=== PATIENT | female | born 2000 | race Caucasian/White ===

== ENCOUNTER 2022-05-06 15:17 | Emergency (ER) | payer OTHER, BC, SELFPAY ==
--- NOTE | 2022-05-06 15:18 | ED.URI ---
HPI - URI/Sore Throat General Chief Complaint: Upper Respiratory Infection Stated Complaint: Cough,Congestion,Sore Throat,Bilateral Ear Time Seen by Provider: 05/06/22 15:18 Source: patient Mode of arrival: ambulatory Limitations: no limitations History of Present Illness HPI Narrative: Marj is a 22-year-old female patient presenting to clinic today with complaints of nonproductive cough, nasal congestion, sore throat, and bilateral ear pain x1 week. She just finished amoxicillin for strep throat 2 weeks ago. She states she had COVID back in March. She denies any known fever or chills. History of asthma when she was a child. MD elicited complaint: cough, sore throat, rhinorrhea and nasal congestion Related Data Home Medications Medication Instructions Recorded Confirmed folic acid 1 mg tablet 1 mg PO DAILY 05/06/22 05/06/22 levothyroxine 25 mcg tablet 25 mcg PO DAILY 05/06/22 05/06/22 pantoprazole 40 mg tablet,delayed 40 mg PO DAILY 05/06/22 05/06/22 release Allergies Allergy/AdvReac Type Severity Reaction Status Date / Time No Known Allergies Allergy Verified 05/06/22 15:19 Review of Systems Review of Systems: Pertinent positives per HPI. Patient denies any fever, chills, rash, headache, visual changes, dizziness, shortness of breath, chest pain, palpitations, nausea, vomiting, diarrhea, constipation, abdominal pain, or any urinary issues. [facility] Comments At the time of my signature, I reviewed and agree with the nursing past medical, surgical, social, and family history. There is no relevant family history pertinent to the patient complaint. Exam Narrative: General: Well-developed, obese, in no apparent distress Head: Normocephalic, atraumatic Eyes: Pupils equally round and reactive to light bilaterally, EOM intact, sclera and conjunctive clear, no discharge, lids normal Ears: TMs intact, congested, mild bulging, ear canals clear, no drainage, grossly hearing normal. Nose: Nares patent, clear nasal discharge, no inflammation, no sinus tenderness. Mouth: Oropharynx without lesions or masses, good dentition, MMM. Postnasal drip Neck: Supple, trachea midline, no enlargement of anterior or posterior cervical nodes, no thyroid masses or goiter palpable. Cardio: Regular rate and rhythm, s1 and s2 normal, no murmur appreciated. Resp: Clear to auscultation bilaterally anteriorly and posteriorly, no rhonchi, rales, wheezing or rubs Course Course Emergency Course: Portions of this record may have been created with voice recognition software. Level of Care: Express Care Visit Vital Signs Vital signs: Vital Signs Temperature 36.2 C L 05/06/22 15:30 Pulse Rate 89 05/06/22 15:30 Respiratory Rate 18 05/06/22 15:30 Blood Pressure 120/80 05/06/22 15:30 Pulse Oximetry 100 05/06/22 15:30 Oxygen Delivery Room Air 05/06/22 15:30 Temperature 36.2 C L 05/06/22 15:30 Pulse Rate 89 05/06/22 15:30 Respiratory Rate 18 05/06/22 15:30 Blood Pressure 120/80 05/06/22 15:30 Pulse Oximetry 100 05/06/22 15:30 Oxygen Delivery Room Air 05/06/22 15:30 Vital signs reviewed MDM - URI/Sore Throat MDM Narrative Medical decision making narrative: At the time of visit patient is resting comfortably on the exam table. I suspect the patient has URI/pharyngitis/eustachian tube dysfunction/viral syndrome. Prescription for prednisone was sent to the pharmacy to help with the congestion eustachian tube dysfunction. Supportive measures were discussed with the patient she voiced understanding discharge instructions and agrees to treatment plan. Offered albuterol inhaler but patient says she has 3 inhalers at home. Differential Diagnosis Differential diagnosis: Likely upper respiratory infection, otitis media, sinusitis, viral infection, bronchitis, influenza, pharyngitis and other (COVID) Discharge Plan Discharge Clinical Impression: Acute dysfunction of both eustachian tubes Upper
[2022-05-06 15:30] VITALS: BP 120/80; PULSE 89; RESP 18; TEMP 36.2; O2SAT 100
== END 2022-05-06 15:43 | disposition home or self-care (01) ==
LOC: EXPTROY 15:24
PROVIDERS: Emergency Provider Nurse Practitioner Family; PCP Registered Nurse
DX: H69.93 Unspecified Eustachian tube disorder, bilateral (principal); J06.9 Acute upper respiratory infection, unspecified; J02.9 Acute pharyngitis, unspecified; Z86.16 Personal history of COVID-19
CPT/HCPCS: 99213; G0463

== ENCOUNTER 2023-12-26 16:48 | Inpatient (IN) | payer BC, SELFPAY ==
--- NOTE | ~2023-12-26 | CT_ITS ---
EXAMINATION: CT abdomen pelvis w con DATE: 12/28/2023 13:44 INDICATION: Left upper quadrant abdominal pain. TECHNIQUE: Computed tomography (CT) of the abdomen and pelvis was performed with 100 mL Omnipaque 350 intravenous contrast. Automated exposure control and iterative reconstruction technique were employe d. The dose-length product was 1617.54 mGy-cm. COMPARISON: CT abdomen and pelvis 12/26/2023 FINDINGS: The visualized portions of the lung bases demonstrate patchy airspace opacities bilaterally . There are confluent airspace opacities and groundglass opacities in right lower lobe with air bronc hograms. There is a trace right pleural effusion. The heart size is normal. No pericardial effusion. The liver demonstrates 2 hyperdense masses measuring up to 14 mm, most likely hemangiomas or focal no dular hyperplasia. There is a 17 mm hypodense mass in right hepatic lobe. The gallbladder, spleen, pa ncreas, adrenal glands, and kidneys are normal. There are no dilated loops of bowel. The appendix is normal. There are no pathologically enlarged lymph nodes. There is no free intraperitoneal fluid. The re is an umbilical hernia containing fat. There is mild thoracic and lumbar spondylosis. IMPRESSION: 1. Multifocal pneumonia, worst in right hepatic lobe. 2. 17 mm liver mass, which may be benign or less likely malignant. Consider abdomen MRI without and w ith contrast. Reviewed, dictated and finalized at location A. IMPRESSION: 1. Multifocal pneumonia, worst in right hepatic lobe. 2. 17 mm liver mass, which may be benign or less likely malignant. Consider abd omen MRI without and with contrast.
--- NOTE | ~2023-12-26 | XR_ITS ---
XR chest 2V Ordering provider: Bernie Arevalo PA-C History: 23 years Female with . fevers, cough . Comparison: None. FINDINGS: MEDIASTINUM: The cardiac silhouette is slightly enlarged. Congestive rodri. LUNGS: No effusions or pneumothorax. Atelectasis versus pneumonia in the right lung base. Prominent m arkings in the left lower lobe. OTHER: No free air under the diaphragm. IMPRESSION: Right basilar atelectasis versus pneumonia. Reviewed, dictated and finalized at location A.
--- NOTE | ~2023-12-26 | CT_ITS ---
CT abdomen pelvis w con Ordering provider: Bernie Arevalo PA-C History: 23 years Female with . n/v/lower abd pain, fevers . Comparison: None. Technique: CT abdomen and pelvis with IV and without oral contrast. Automated exposure control and it erative reconstruction technique were employed. The dose-length product was 1617.74 mGy-cm. 100 mL Om nipaque 350 was given IV. Findings: VISUALIZED LOWER CHEST: Right lower lobe pneumonia is noted. UPPER ABDOMINAL ORGANS: Liver: Normal. 1.2 cm hypodensity seen in the right lobe of the liver segment #7 Gallbladder: Normal. Spleen: Normal. Stomach/duodenum: Normal. Pancreas: Normal. Adrenals: Normal. Kidneys: Normal. PELVIC ORGANS: The bladder is underfilled. BOWEL AND MESENTERY: Colon: No evidence of diverticulitis. Fluid is seen in the colon and distal small bowel which may ind icate diarrhea or enteritis. Normal appendix. Small Bowel: Normal. No obstruction. Peritoneum/mesentery: No free air or free fluid. No mesenteric lymphadenopathy. RETROPERITONEUM: Normal aorta. No retroperitoneal lymphadenopathy. MUSCULOSKELETAL: Superficial soft tissues: The superficial soft tissues are normal. Bones: Normal spine. IMPRESSION: 1. Right basal pneumonia. 2. No evidence of appendicitis, diverticulitis or intestinal obstruction. 3. Fluid in the distal small bowel and in the large bowel which may indicate diarrhea or enteritis. Clinical correlation advised. 4. Small hypodensity in the right lobe of the liver which may be a cyst or a hemangioma. Follow-up a dvised. Reviewed, dictated and finalized at location A. IMPRESSION: 1. Right basal pneumonia. 2. No evidence of appendicitis, diverticulitis or intestinal obstruction. 3. Fluid in the distal small bowel and in the large bowel which may indicate d iarrhea or enteritis. Clinical correlation advised. 4. Small hypodensity in the right lobe of the liver which may be a cyst or a h emangioma. Follow-up advised.
[2023-12-26 16:50] VITALS: BP 118/76; PULSE 129; RESP 20; TEMP 38.6; O2SAT 97
--- NOTE | 2023-12-26 16:58 | ECG_ITS ---
Test Date: 2023-12-26 17:04:56 Measurements Intervals [place] Rate: 121 P: 53 NV: 132 QRS: 58 QRSD: 82 T: -11 QT: 287 QTc: 408 Interpretive Statements SINUS TACHYCARDIA MINIMAL Q WAVES- INF/LAT LEADS NONSPECIFIC ST & T-WAVE ABNORMALITY- ANT/INF LEADS ABNORMAL ECG No previous ECG available for comparison Electronically Signed On 12-26-2023 17:52:54 CDT by Juanpablo Da Silva D.O.
[2023-12-26 17:54] LABS: Basophils Percent Auto 0.5 % (0.2-1.2); Eosinophils Percent Auto 0.5 % (0-4.4); Hematocrit 42.1 % (37.0-47.0); Hemoglobin 13.6 g/dL (12.0-15.0); Immature Granulocyte Absolute 0.06 K/mm3 (0.00-0.031); Immature Granulocyte Percent A 0.7 % (0-0.5); Lymphocytes Absolute Auto 0.95 K/mm3 (0.9-3.2); Lymphocytes Percent Auto 10.9 % (18.3-44.2); Mean Corpuscular HGB Conc 32.3 g/dl (32-36); Mean Corpuscular Hemoglobin 26.7 pg (26-34); Mean Corpuscular Volume 82.7 fl (80-100); Mean Platelet Volume 11.2 fl (7.4-10.4); Monocytes Absolute Auto 0.5 K/mm3 (0.1-0.6); Monocytes Percent Auto 5.3 % (2.6-8.5); Neutrophils Absolute Auto 7.2 K/mm3 (1.3-6.7); Neutrophils Percent Auto 82.1 % (45.5-73.1); Platelet Count Result 286 k/mm3 (150-375); Red Blood Count 5.09 M/mm3 (4.2-5.4); Red Cell Distribution Width 13.4 % (11.5-14.5); White Blood Count 8.7 K/mm3 (4.5-10.0)
[2023-12-26 17:56] LABS: Influenza A QL RT-PCR Negative (Negative); Influenza B QL RT-PCR Negative (Negative); RSV RNA, RT-PCR Negative (Negative); SARS-CoV-2 RNA PCR Negative (Negative)
[2023-12-26 18:00] LABS: Alanine Aminotransferase 13 U/L (6-35); Albumin Level 4.3 g/dL (3.5-5.1); Alkaline Phosphatase 79 U/L (38-126); Anion Gap 14 mmol/L (4-12); Aspartate Amino Transferase 23 U/L (14-36); Bilirubin,Total 0.7 mg/dL (0.2-1.3); Blood Urea Nitrogen 10 mg/dL (7-17); Calcium 8.6 mg/dL (8.4-10.2); Carbon Dioxide 23 mmol/L (22-30); Chloride 100 mmol/L (98-107); Estimated Glomerular Filt Rate > 60; Glucose 104 mg/dL (65-110); Magnesium 2.1 mg/dL (1.6-2.3); Potassium 3.6 mmol/L (3.4-5.0); Sodium 137 mmol/L (137-145)
--- NOTE | 2023-12-26 18:04 | ED.FEVER ---
HPI - Fever General Chief Complaint: Fever <HEVER Rashid Last Filed: 12/26/23 21:46> Stated Complaint: fever <HEVER Rashid Last Filed: 12/26/23 21:46> Time Seen by Provider: 12/26/23 16:59 <HEVER Rashid Last Filed: 12/26/23 21:46> Source: patient <HEVER Rashid Last Filed: 12/26/23 21:46> Mode of arrival: ambulatory <HEVER Rashid Last Filed: 12/26/23 21:46> Limitations: no limitations <HEVER Rashid Last Filed: 12/26/23 21:46> History of Present Illness HPI Narrative: Patient is a 23-year-old female who presents the ED with URI symptoms. Patient reports she has been sick since Sunday with persistent fevers, T-max 104? F, body aches, generalized weakness, fatigue, nausea, vomiting, lower abdominal cramping, cough, congestion. Has been taking Tylenol and ibuprofen for her fevers. Denies known sick contacts. Denies shortness of breath, chest pain. Reports her daughter is now sick with similar symptoms. 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 <HEVER Rashdi Last Filed: 12/26/23 21:46> Related Data Home Medications: Home Medications Medication Instructions Recorded Confirmed levothyroxine 25 mcg tablet 25 mcg PO DAILY 05/06/22 12/26/23 pantoprazole 40 mg tablet,delayed 40 mg PO DAILY 05/06/22 12/26/23 release clonazepam 0.5 mg tablet 0.5 mg PO QHS 12/26/23 12/26/23 ferrous sulfate 325 mg PO DAILY 12/26/23 12/26/23 sertraline 50 mg tablet 50 mg PO QAM 12/26/23 12/26/23 <HEVER Rashid Last Filed: 12/26/23 21:46> Allergies/Adverse Reactions: Allergies Allergy/AdvReac Type Severity Reaction Status Date / Time No Known Allergies Allergy Verified 05/06/22 15:19 <Bernie Arevalo PA-C - Last Filed: 12/26/23 21:46> Review of Systems Review of Systems: All systems reviewed & are unremarkable except as noted in HPI. <Bernie Arevalo PA-C - Last Filed: 12/26/23 21:46> All systems reviewed & are unremarkable except as noted in HPI and below <Bernie Arevalo PA-C - Last Filed: 12/26/23 21:46> [facility] Social History Social History: Social History Smoking status: Never smoker Alcohol intake: never Substance use: never Do You Feel Safe in your Home?: Yes Lack of Transportation: No Lack of Food: Never True Current Housing: I Have Housing Concerned About Future Housing: No Difficulty Paying Gas/Electric Bills: No Difficulty Paying for Meds: No Currently Unemployed: No Education: High School Diploma/GED Difficulty w/ Childcare or Family Care: No Spiritual care concerns: No <Bernie Arevalo PA-C - Last Filed: 12/26/23 21:46> Exam Narrative: GENERAL: Mildly ill appearing, well-nourished, in no acute distress. HEAD: Normocephalic, atraumatic. RESPIRATORY: Airway patent, respirations nonlabored. Clear to auscultation bilaterally, no rales, rhonchi, wheezing. CARDIOVASCULAR: Tachycardic with regular rhythm without murmurs, rubs, or gallops. ABDOMINAL: Soft, mild diffuse tenderness throughout lower abdomen, nondistended. Normoactive BS. MUSCULOSKELETAL: Moves all extremities. No gross deformities. SKIN: Warm, dry. Flushed and diaphoretic. NEURO: A&O X3. Speech clear. Cranial nerves II-XII grossly intact. Steady gait. No ataxic movements. PSYCHIATRIC: Appropriate mood and affect. Normal interaction. <Bernie Arevalo PA-C - Last Filed: 12/26/23 21:46> Course PERSONNEL COORDINATOR/PA Physician Supervision For this patient encounter, I reviewed the PERSONNEL COORDINATOR or PA documentation, treatment plan, and medical decision making; and I had [id number]-[id number] time with this patient. <Blaze Samuels MD - Last Filed: 12/27/23 00:21> Vital Signs Vital signs: Vital Signs Temperature 101.4 F H 12/26/23 16:50 Pulse Rate 129 H 12/26/23 16:50 Respiratory Rate 20
[2023-12-26] MEDS: FAMOTIDINE 20 MG/2 ML VIAL IV PUSH (18:22)
[2023-12-26] MEDS: KETOROLAC 30 MG/ML VIAL (*BKC) IV PUSH (18:22)
[2023-12-26] MEDS: SODIUM CHLORIDE 0.9% IV 1,000 ML 999 ML IV CONT ×2 (18:22)
[2023-12-26 18:31] LABS: Monoscreen Negative (Negative); Negative Monotest Control Negative (Negative); Positive Monotest Control Positive (Positive)
[2023-12-26 18:40] LABS: Strep Group A RT-PCR NOT DETECTED (Negative)
[2023-12-26 19:03] LABS: Add Urine Microscopic? YES; Appearance Urine Clear (Clear); Bacteria Urine Rare /hpf; Bilirubin Urine Negative (Negative); Blood Urine Negative (Negative); Color Urine Dark Yellow (Yellow); Glucose Urine UA Negative (Negative); Ketones Urine 1+ mg/dL (Negative); Leukocyte Esterase Ur Negative LEU/UL (Negative); Nitrate Urine Negative (Negative); Non Pathogenic Casts 0-2; Protein Urine 2+ mg/dL (Negative); RBC Urine 0-2 /hpf (0-2); Specific Grav Ur 1.025 (1.001-1.035); Squamous Epithelial Cell Urine Occasional /hpf (Few); WBC Urine 0-5 /hpf (0-3); pH Urine 5.5 (5.0-9.0)
[2023-12-26 19:44] VITALS: BP 134/80; PULSE 117; RESP 16; TEMP 36.6; O2SAT 97
[2023-12-26 20:06] VITALS: BP 115/57; PULSE 109; RESP 16; O2SAT 97
[2023-12-26 21:47] VITALS: BP 136/67; PULSE 105; RESP 16; O2SAT 97
--- NOTE | 2023-12-26 22:10 | PC.NURSE ---
Report attempt x1 to [facility] medical.
--- NOTE | 2023-12-26 22:39 | ADMGEN ---
This patient, Mell Bhakta, was admitted to Medical Room 250-01. Patient/family oriented to hospital policies and general routines including ID bracelet, bed and alarms, visiting hours, pain management, procedures, bathroom and other care routines, personal items, smoking policy, room service/diet, and visiting hours. Information on how to activate the Rapid Response Team has been discussed. Patient/Family are encouraged to report perceived risks to care and to ask questions if they do not understand what they are told or what they should do.
[2023-12-26 22:41] VITALS: BMI 42.5
[2023-12-26 22:47] VITALS: BP 129/76; PULSE 100; RESP 20; TEMP 36.7; O2SAT 99
[2023-12-26 22:57] VITALS: BMI 42.5
[2023-12-26] MEDS: SODIUM CHLORIDE 0.9% IV 1,000 ML 125 ML IV CONT (23:13)
[2023-12-26] MEDS: AZITHROMYCIN 500 MG/NS 250 ML 500 MG/250 ML BAG 250 MG IVPB (23:14)
[2023-12-26] MEDS: ACETAMINOPHEN 500 MG TABLET 1000 MG PO (23:20)
--- NOTE | 2023-12-26 23:27 | PM.IMHP ---
H&P: HPI History of Present Illness Date/Time: 12/26/23 23:27 Chief Complaint: Cough, fever, nausea vomiting diarrhea Narrative: Ms. Bhakta this is a pleasant 23-year-old female with a history of obesity, anxiety, hypothyroidism who presents with 3 day complaint of fevers T-max 104? F, body aches, generalized weakness, fatigue, nausea vomiting, lower abdominal cramping, diarrhea 5 times per day with loose yellow stool, cough with clear sputum production,. The patient denies chest pain. Denies shortness of breath. Reports her daughter has similar symptoms. She has been taking Tylenol ibuprofen with little improvement. Upon presentation to ER patient has stable blood pressure, no fever but tachycardia in the 100s. EKG showing sinus tachycardia. She was given ceftriaxone 1 g, azithromycin 500 mg, metronidazole 500 mg, 2 L normal saline bolus, famotidine, Ketoralac, Tylenol 1000 mg p.o. x1. chest x-ray and CT abdomen pelvis demonstrating right basal pneumonia along with enteritis. Blood cultures obtained Review of Systems Review of Systems: All systems reviewed & are unremarkable except as noted in HPI and below ( subjective) [facility] Social History Social History Smoking status: Never smoker Alcohol intake: never Substance use: never Do You Feel Safe in your Home?: Yes Lack of Transportation: No Lack of Food: Never True Current Housing: I Have Housing Concerned About Future Housing: No Difficulty Paying Gas/Electric Bills: No Difficulty Paying for Meds: No Currently Unemployed: No Education: High School Diploma/GED Difficulty w/ Childcare or Family Care: No Spiritual care concerns: No Meds Home Medications and Allergies Home Medications Medication Instructions Recorded Confirmed Type folic acid 1 mg tablet 1 mg PO DAILY 05/06/22 05/06/22 History levothyroxine 25 mcg tablet 25 mcg PO DAILY 05/06/22 05/06/22 History pantoprazole 40 mg tablet,delayed 40 mg PO DAILY 05/06/22 05/06/22 History release prednisone 20 mg tablet 40 mg PO DAILY 5 days #10 tabs 05/06/22 Rx Allergies Allergy/AdvReac Type Severity Reaction Status Date / Time No Known Allergies Allergy Verified 05/06/22 15:19 Vital Signs Vital Signs - 24 hr 12/26/23 16:50 12/26/23 19:44 12/26/23 20:06 Temperature 101.4 F H 98 F Pulse Rate 129 H 117 H 109 H Respiratory Rate 20 16 16 Blood Pressure 118/76 134/80 115/57 L Pulse Oximetry 97 97 97 12/26/23 21:47 12/26/23 22:47 Temperature 98.1 F Pulse Rate 105 H 100 Respiratory Rate 16 20 Blood Pressure 136/67 129/76 Pulse Oximetry 97 99 Exam Const: General: comfortable and no acute distress Eyes: Pupils: Equal, round and reactive pupils present Neck: Neck: supple Resp: Effort & Inspection: normal respiratory effort Other: rales in the right lung base Cardio: Rate: tachycardic Rhythm: regular rhythm Heart sounds: no gallops, no murmurs and no rubs GI: Inspection: non-distended GI Palp: Yes Soft to palpation and No Tenderness to palpation present (GI) Extrem: General: no edema H&P: Results Labs Labs: Short CBC 12/26/23 Range/Units 17:30 WBC 8.7 (4.5-10.0) K/mm3 Hgb 13.6 (12.0-15.0) g/dL Hct 42.1 (37.0-47.0) % Plt Count 286 (150-375) k/mm3 BMP 12/26/23 17:30 Sodium 137 Potassium 3.6 Chloride 100 Carbon Dioxide 23 BUN 10 Creatinine 0.60 L Glucose 104 Calcium 8.6 Liver Function 12/26/23 Range/Units 17:30 Total Bilirubin 0.7 (0.2-1.3) mg/dL AST 23 (14-36) U/L ALT 13 (6-35) U/L Alkaline Phosphatase 79 (38-126) U/L Albumin 4.3 (3.5-5.1) g/dL Urine 12/26/23 Range/Units 18:47 Urine Color Dark yellow (Yellow) Urine Appearance Clear (Clear) Urine pH 5.5 (5.0-9.0) Ur Specific [place] 1.025 (1.001-1.035) Urine Protein 2+ H (Negative) mg/dL Urine Gluc
[2023-12-27] VITALS (18 sets, daily range): BP systolic 103–141; BP diastolic 59–77; PULSE 85–103; RESP 18–20; TEMP 36.4–38.8; O2SAT 97–100
[2023-12-27] MEDS: clonazePAM (*CRX) 0.5 MG TABLET PO ×2 (01:13→22:06)
[2023-12-27] MEDS: metroNIDAZOLE 500 MG/ISO 100ML 500 MG/100 ML BAG 100 MG IVPB ×4 (01:24→20:58)
[2023-12-27 01:33] LABS: Toxigenic C. Diff NEGATIVE (NEGATIVE)
[2023-12-27] MEDS: LEVOTHYROXINE SODIUM 25 MCG TABLET PO (06:15)
[2023-12-27 06:43] LABS: Basophils Percent Auto 0.4 % (0.2-1.2); Eosinophils Percent Auto 0.3 % (0-4.4); Hematocrit 37.9 % (37.0-47.0); Hemoglobin 12.3 g/dL (12.0-15.0); Immature Granulocyte Absolute 0.04 K/mm3 (0.00-0.031); Immature Granulocyte Percent A 0.6 % (0-0.5); Lymphocytes Absolute Auto 1.36 K/mm3 (0.9-3.2); Lymphocytes Percent Auto 20.2 % (18.3-44.2); Mean Corpuscular HGB Conc 32.5 g/dl (32-36); Mean Corpuscular Hemoglobin 27.2 pg (26-34); Mean Corpuscular Volume 83.8 fl (80-100); Mean Platelet Volume 10.8 fl (7.4-10.4); Monocytes Absolute Auto 0.6 K/mm3 (0.1-0.6); Monocytes Percent Auto 8.3 % (2.6-8.5); Neutrophils Absolute Auto 4.7 K/mm3 (1.3-6.7); Neutrophils Percent Auto 70.2 % (45.5-73.1); Platelet Count Result 220 k/mm3 (150-375); Red Blood Count 4.52 M/mm3 (4.2-5.4); Red Cell Distribution Width 13.6 % (11.5-14.5); White Blood Count 6.7 K/mm3 (4.5-10.0)
[2023-12-27] MEDS: ACETAMINOPHEN 500 MG TABLET 1000 MG PO ×2 (06:48→18:07)
[2023-12-27 06:52] LABS: Anion Gap 9 mmol/L (4-12); Blood Urea Nitrogen 8 mg/dL (7-17); Calcium 7.9 mg/dL (8.4-10.2); Carbon Dioxide 21 mmol/L (22-30); Chloride 104 mmol/L (98-107); Estimated CRCL calculation 189 ml/min; Estimated Glomerular Filt Rate > 60; Glucose 96 mg/dL (65-110); Potassium 3.4 mmol/L (3.4-5.0); Sodium 134 mmol/L (137-145)
[2023-12-27] MEDS: FERROUS SULFATE 325 MG TABLET DR BY MOUTH (08:36)
[2023-12-27] MEDS: SERTRALINE HCL 50 MG TABLET PO (08:38)
[2023-12-27] MEDS: IBUPROFEN 600 MG TABLET PO ×2 (08:38→19:34)
[2023-12-27] MEDS: PANTOPRAZOLE SODIUM IV 40 MG VIAL IV PUSH (08:38)
[2023-12-27] MEDS: SODIUM CHLORIDE 0.9% IV 1,000 ML 999 ML IV CONT (08:39)
--- NOTE | 2023-12-27 08:47 | ECG_ITS ---
Test Date: 2023-12-27 08:38:36 Measurements Intervals [place] Rate: 93 P: 55 SC: 146 QRS: 48 QRSD: 90 T: -14 QT: 339 QTc: 423 Interpretive Statements SINUS RHYTHM MINIMAL Q WAVES- INFERIOR LEADS BORDERLINE ST-T WAVE ABNORMALITY- ANT/INF LEADS BASELINE WANDER- II, AVF, V3 ABNORMAL ECG Compared to ECG 12/26/2023 17:04:56 HEART RATE HAS DECREASED Electronically Signed On 12-27-2023 10:42:10 CDT by Juanpablo Da Silva D.O.
[2023-12-27] MEDS: SODIUM CHLORIDE 0.9% IV 1,000 ML 125 ML IV CONT ×2 (11:08→20:19)
--- NOTE | 2023-12-27 13:34 | PM.IMPN ---
Progress Note: A&P Assessment and Plan (1) Pneumonia: Qualifiers: Laterality: right Lung location: lower lobe of lung Pneumonia type: due to unspecified organism Qualified Code(s): J18.9 - Pneumonia, unspecified organism Code(s): J18.9 - Pneumonia, unspecified organism Status: Acute (2) Enteritis: Code(s): K52.9 - Noninfective gastroenteritis and colitis, unspecified Status: Acute (3) Sinus tachycardia: Code(s): R00.0 - Tachycardia, unspecified Status: Acute Plan Pneumonia On room air, still having fever today with T 101.8 Monitor blood cultures CXR adn CT AP reviewed continue abx Enteritis patient still having diarrhea continue IVF monitor DVT prophylaxis on Sq Lovenox Subjective Date/time seen: 12/27/23 13:34 Interval history: Patient comfortable at bedside complained of chest pain with coughing Review of Systems Review of Systems: All systems reviewed & are unremarkable except as noted in HPI and below ( subjective) Exam Narrative: General: alert and comfortable Eyes: EOMI, PERRLA ENNT External ears normal, Neck is supple, no masses, Respiratory systems: Clear to auscultation Cardiovascular S1, S2, normal rhythm, no murmur, rub, or gallop; no thrill or palpable murmurs on palpation. Gastrointestinal: soft, non-tender, and non-distended abdomen with no masses; BS present Skin: no rash, lesions, ulcerations, subcutaneous nodules or induration Musculoskeletal: no abnormality and no tenderness, normal ROM Neurologic: Alert and oriented x3, non focal Mental Status Exam: normal affect Objective Data Vital Signs Vital Signs: Vital Signs - 24 hr 12/26/23 16:50 12/26/23 19:44 12/26/23 20:06 Temperature 101.4 F H 98 F Pulse Rate 129 H 117 H 109 H Respiratory Rate 20 16 16 Blood Pressure 118/76 134/80 115/57 L Pulse Oximetry 97 97 97 Oxygen Delivery 12/26/23 21:47 12/26/23 22:47 12/27/23 00:00 Temperature 98.1 F Pulse Rate 105 H 100 102 H Respiratory Rate 16 20 Blood Pressure 136/67 129/76 Pulse Oximetry 97 99 Oxygen Delivery 12/27/23 00:00 12/27/23 04:00 12/27/23 05:04 Temperature 99.3 F Pulse Rate 96 100 Respiratory Rate 20 Blood Pressure 141/69 H Pulse Oximetry 100 Oxygen Delivery Room Air 12/27/23 06:46 12/27/23 06:48 12/27/23 07:48 Temperature 101.8 F H 101.8 F H 100.1 F H Pulse Rate Respiratory Rate Blood Pressure Pulse Oximetry Oxygen Delivery 12/27/23 08:00 Temperature Pulse Rate Respiratory Rate Blood Pressure Pulse Oximetry Oxygen Delivery Room Air Intake/Output Intake/Output: Intake & Output 12/24/23 12/25/23 12/26/23 12/27/23 23:59 23:59 23:59 23:59 Intake Total 2049 1490 Balance 2049 1490 Meds/Results Medications: Active Medications Generic Name Dose Route Start Last Admin Trade Name Freq PRN Reason Stop Dose Admin Acetaminophen 1,000 mg 12/26/23 21:38 12/27/23 06:48 Acetaminophen 500 Mg Tablet PO 1,000 mg Q6H PRN Administration Mild Pain (1-3) or Fever Clonazepam 0.5 mg 12/27/23 01:00 12/27/23 01:13 Clonazepam (*Crx) 0.5 Mg Tablet PO 0.5 mg QHS TRINA Administration Ferrous Sulfate 325 mg 12/27/23 09:00 12/27/23 08:36 Ferrous Sulfate [address] BY MOUTH 325 mg DAILY TRINA Administration Ceftriaxone Sodium 1 gm in 50 mls @ 100 mls/hr 12/27/23 22:00 Rocephin 1 Gm/Ns 50 Ml IVPB Q24H TRINA Azithromycin 500 mg in 250 mls @ 250 mls/hr 12/27/23 22:00 Zithromax IVPB Q24H TRINA Metronidazole 500 mg in 100 mls @ 100 mls/hr 12/27/23 06:00 12/27/23 06:15 Flagyl 500 Mg/Iso Soln 100 Ml IVPB 100 mls/hr Q8HR TRINA Administration Sodium Chloride 1,000 mls @ 125 mls/hr 12/26/23 21:30 12/27/23 11:08 Normal Saline Iv IV CONT 125 mls/hr .Q8H TRINA Administration Ibuprofen 600 mg 12/26/23 21:38 12/27/23 08:38 Ibuprofen 600 Mg Tablet PO 600 mg
[2023-12-27] MEDS: AZITHROMYCIN 500 MG/NS 250 ML 500 MG/250 ML BAG 250 MG IVPB (22:03)
[2023-12-28] VITALS (9 sets, daily range): BP systolic 116–129; BP diastolic 61–75; PULSE 71–92; RESP 16–20; TEMP 36.3–36.9; O2SAT 96–99
[2023-12-28] MEDS: metroNIDAZOLE 500 MG/ISO 100ML 500 MG/100 ML BAG 100 MG IVPB ×3 (06:00→22:20)
[2023-12-28] MEDS: LEVOTHYROXINE SODIUM 25 MCG TABLET PO (06:00)
[2023-12-28] MEDS: CALCIUM CARBONATE (TUMS) 500 MG (200 MG ELEMENTAL) PO (06:42)
--- NOTE | 2023-12-28 07:31 | P.CDI_ITS ---
Morbid obesity CDI Query Clarification Request Patient with a BMI of 42.6 please provide a diagnosis to accompany this findi ng: * Overweight * Obesity * Morbid Obesity * Other/Unknown
--- NOTE | 2023-12-28 07:31 | WPDCDIQUERY2 ---
CDI Query Clarification Request Patient with a BMI of 42.6 please provide a diagnosis to accompany this finding: Overweight Obesity Morbid Obesity Other/Unknown
[2023-12-28] MEDS: SERTRALINE HCL 50 MG TABLET PO (08:16)
[2023-12-28] MEDS: FERROUS SULFATE 325 MG TABLET DR BY MOUTH (08:16)
[2023-12-28] MEDS: SODIUM CHLORIDE 0.9% IV 1,000 ML 125 ML IV CONT (08:17)
[2023-12-28] MEDS: ENOXAPARIN 40 MG/0.4 ML SYRINGE SUB-Q (08:19)
[2023-12-28] MEDS: PANTOPRAZOLE SODIUM IV 40 MG VIAL IV PUSH (08:20)
--- NOTE | 2023-12-28 15:40 | PM.IMPN ---
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 CXR and CT AP reviewed continue abx possible discharge tomorrow Enteritis diarrhea markedly improved continue IVF monitor DVT prophylaxis on Sq Lovenox Subjective Date/time seen: 12/28/23 15:40 Interval history: Patient comfortable at bedside however last fever was about 8 pm last night will have to be fever for 24 hrs prior to discharge Review of Systems Review of Systems: All systems reviewed & are unremarkable except as noted in HPI and below ( subjective) Exam Narrative: General: alert and comfortable Eyes: EOMI, PERRLA ENNT External ears normal, Neck is supple, no masses, Respiratory systems: Clear to auscultation Cardiovascular S1, S2, normal rhythm, no murmur, rub, or gallop; no thrill or palpable murmurs on palpation. Gastrointestinal: soft, non-tender, and non-distended abdomen with no masses; BS present Skin: no rash, lesions, ulcerations, subcutaneous nodules or induration Musculoskeletal: no abnormality and no tenderness, normal ROM Neurologic: Alert and oriented x3, non focal Mental Status Exam: normal affect Const: General: comfortable and no acute distress Eyes: Pupils: Equal, round and reactive pupils present Neck: Neck: supple Resp: Effort & Inspection: normal respiratory effort Other: rales in the right lung base Cardio: Rate: tachycardic Rhythm: regular rhythm Heart sounds: no gallops, no murmurs and no rubs GI: Inspection: non-distended Neuro: Cranial nerves: Yes Equal, round and reactive pupils present Extrem: General: no edema Objective Data Vital Signs Vital Signs: Vital Signs - 24 hr 12/27/23 16:00 12/27/23 18:07 12/27/23 19:31 Temperature 99.9 F H 101.8 F H Pulse Rate 85 Respiratory Rate Blood Pressure Pulse Oximetry Oxygen Delivery 12/27/23 19:34 12/27/23 20:03 12/27/23 19:07 Temperature 101.8 F H 99.6 F 101.8 F H Pulse Rate 94 Respiratory Rate 18 Blood Pressure 103/59 L Pulse Oximetry 99 Oxygen Delivery 12/27/23 21:02 12/27/23 21:53 12/27/23 20:00 Temperature 98.6 F 97.5 F L Pulse Rate 85 92 Respiratory Rate 20 Blood Pressure 121/70 Pulse Oximetry 98 Oxygen Delivery 12/28/23 00:00 12/27/23 20:00 12/28/23 04:00 Temperature Pulse Rate 92 81 Respiratory Rate Blood Pressure Pulse Oximetry Oxygen Delivery Room Air 12/28/23 05:40 12/28/23 14:00 12/28/23 08:00 Temperature 98.4 F 97.8 F Pulse Rate 84 71 79 Respiratory Rate 16 16 Blood Pressure 116/69 117/61 Pulse Oximetry 96 98 Oxygen Delivery 12/28/23 12:00 Temperature Pulse Rate 84 Respiratory Rate Blood Pressure Pulse Oximetry Oxygen Delivery Intake/Output Intake/Output: Intake & Output 12/25/23 12/26/23 12/27/23 12/28/23 23:59 23:59 23:59 23:59 Intake Total 0 4050 2360 Output Total 100 250 Balance 0 3950 2110 Meds/Results Medications: Active Medications Generic Name Dose Route Start Last Admin Trade Name Freq PRN Reason Stop Dose Admin Acetaminophen 1,000 mg 12/26/23 21:38 12/27/23 18:07 Acetaminophen 500 Mg Tablet PO 1,000 mg Q6H PRN Administration Mild Pain (1-3) or Fever Calcium Carbonate 200 mg 12/28/23 06:06 12/28/23 06:42 Calcium Carbonate (Tums) 500 Mg (200 Mg Elemental) PO 200 mg Q4H PRN Administration I
[2023-12-28] MEDS: guaiFENesin/DEXTROMETHORPHAN 10 ML UDC PO (20:44)
[2023-12-28] MEDS: clonazePAM (*CRX) 0.5 MG TABLET PO (20:45)
[2023-12-28] MEDS: AZITHROMYCIN 500 MG/NS 250 ML 500 MG/250 ML BAG 250 MG IVPB (20:46)
[2023-12-29] VITALS: PULSE 69
[2023-12-29 04:00] VITALS: PULSE 73
[2023-12-29 05:01] LABS: Basophils Percent Auto 0.6 % (0.2-1.2); Eosinophils Absolute Auto 0.2 K/mm3 (0-0.3); Eosinophils Percent Auto 3.1 % (0-4.4); Hematocrit 33.2 % (37.0-47.0); Hemoglobin 10.5 g/dL (12.0-15.0); Immature Granulocyte Absolute 0.04 K/mm3 (0.00-0.031); Immature Granulocyte Percent A 0.8 % (0-0.5); Lymphocytes Absolute Auto 1.85 K/mm3 (0.9-3.2); Mean Corpuscular HGB Conc 31.6 g/dl (32-36); Mean Corpuscular Hemoglobin 26.3 pg (26-34); Mean Platelet Volume 11.2 fl (7.4-10.4); Monocytes Absolute Auto 0.4 K/mm3 (0.1-0.6); Neutrophils Absolute Auto 2.7 K/mm3 (1.3-6.7); Neutrophils Percent Auto 51.5 % (45.5-73.1); Platelet Count Result 232 k/mm3 (150-375); Red Cell Distribution Width 13.6 % (11.5-14.5); White Blood Count 5.1 K/mm3 (4.5-10.0)
[2023-12-29 05:11] VITALS: BP 115/66; PULSE 79; RESP 20; TEMP 36.4; O2SAT 98
[2023-12-29 05:18] LABS: Alanine Aminotransferase 13 U/L (6-35); Albumin Level 3.2 g/dL (3.5-5.1); Alkaline Phosphatase 51 U/L (38-126); Anion Gap 9 mmol/L (4-12); Aspartate Amino Transferase 27 U/L (14-36); Bilirubin,Total 0.2 mg/dL (0.2-1.3); Blood Urea Nitrogen 5 mg/dL (7-17); Calcium 8.1 mg/dL (8.4-10.2); Carbon Dioxide 24 mmol/L (22-30); Chloride 105 mmol/L (98-107); Estimated CRCL calculation 189 ml/min; Estimated Glomerular Filt Rate > 60; Glucose 129 mg/dL (65-110); Magnesium 2.1 mg/dL (1.6-2.3); Potassium 3.1 mmol/L (3.4-5.0); Sodium 138 mmol/L (137-145)
[2023-12-29 05:19] LABS: Lactic Acid Reflex 0.8 mmol/L (0.7-2.0)
[2023-12-29] MEDS: metroNIDAZOLE 500 MG/ISO 100ML 500 MG/100 ML BAG 100 MG IVPB (06:24)
[2023-12-29] MEDS: LEVOTHYROXINE SODIUM 25 MCG TABLET PO (06:25)
--- NOTE | 2023-12-29 07:28 | PM.DS ---
DS: Admitting Diagnosis Discharge Date 12/29/23 Admitting Diagnosis Cough, fever and vomiting and diarrhea DS: Discharge Diagnosis Discharge Diagnosis (1) Sepsis: Qualifiers: Sepsis acute organ dysfunction status: unspecified Sepsis type: sepsis due to unspecified organism Qualified Code(s): A41.9 - Sepsis, unspecified organism Code(s): A41.9 - Sepsis, unspecified organism Status: Acute (2) Pneumonia: Qualifiers: Laterality: right Lung location: lower lobe of lung Pneumonia type: due to unspecified organism Qualified Code(s): J18.9 - Pneumonia, unspecified organism Code(s): J18.9 - Pneumonia, unspecified organism Status: Acute (3) Enteritis: Code(s): K52.9 - Noninfective gastroenteritis and colitis, unspecified Status: Acute DS: Summary Hospital Course Hospital Course: Ms. Bhakta this is a pleasant 23-year-old female with a history of obesity, anxiety, hypothyroidism who presents with 3 day complaint of fevers T-max 104? F, body aches, generalized weakness, fatigue, nausea vomiting, lower abdominal cramping, diarrhea 5 times per day with loose yellow stool, cough with clear sputum production,. The patient denies chest pain. Denies shortness of breath. Reports her daughter has similar symptoms. She has been taking Tylenol ibuprofen with little improvement. Upon presentation to ER patient has stable blood pressure, no fever but tachycardia in the 100s. EKG showing sinus tachycardia. She was given ceftriaxone 1 g, azithromycin 500 mg, metronidazole 500 mg, 2 L normal saline bolus, famotidine, Ketoralac, Tylenol 1000 mg p.o. x1. chest x-ray and CT abdomen pelvis demonstrating right basal pneumonia along with enteritis. Blood and stool cultures were obtained. Patient was started on IVF and Rocephin, Flagyl and Azithromycin. Stool culture negative for E coli, and Campylobacter, salmonella pending. Blood cultue still negative at this time. Patient's diarrhea, vomitnig and cough have resolved. she is tolerating diet. She however complained of abd pain yesterday repeat CT AP showed 17 mm [facility], however patient declined noting she has regular MRI outpatient for her fatty liver, and stated she will prefer to conitnue follow up with her primary care for the MRI Abdomen and pelvis. Patient discharged on Levaquin and flagyl x 5 more days. she will follow up with PCP in 3-5 days. Assessment and Plan (1) Pneumonia: Qualifiers: Laterality: right Lung location: lower lobe of lung Pneumonia type: due to unspecified organism Qualified Code(s): J18.9 - Pneumonia, unspecified organism Code(s): J18.9 - Pneumonia, unspecified organism Status: Acute (2) Enteritis: Code(s): K52.9 - Noninfective gastroenteritis and colitis, unspecified Status: Acute (3) Sinus tachycardia: Code(s): R00.0 - Tachycardia, unspecified Status: Acute Plan Pneumonia afebrile more than 24 hrs cultures negative so far CXR and CT AP reviewed discharged on 5 more days of Levaquin and Flagyl Enteritis diarrhea markedly improved continue IVF monitor Possible liver mass Patient complained of abd pain yesterday and repeat CT AP showed Liver mass 17 mm recommended MRI Abdomen However patient declined noting she has regular outpatient MRI with her PCP for fatty liver surveillance and will prefer to continue on that schedule with her PCP F/u with PCP in 3-5 days. Time Spent with Patient Time attestation: Total time spent providing and/or coordinating discharge services: DS: Data Data Completed and Pending Labs on day of discharge: Labs from last 24 hours 12/29/23 04:53 WBC 5.1 RBC 4.00 L Hgb 10.5 L Hct 33.2 L MCV 83.0 MCH 26.3 MCHC 31.6 L RDW 13.6 Plt Count 232 MPV 11.2 H Immature Gran % (Auto) 0.8 H Neut % (Auto) 51.5 Lymph % (Auto) 36.0 Tompkins % (
[2023-12-29 08:00] VITALS: PULSE 71
[2023-12-29] MEDS: FERROUS SULFATE 325 MG TABLET DR BY MOUTH (09:23)
[2023-12-29] MEDS: KCL 20 MEQ/SW 100 ML 100 ML 50 MEQ IVPB (09:23)
[2023-12-29] MEDS: POTASSIUM CHLORIDE 20 MEQ ER TABLET 40 MEQ PO (09:23)
[2023-12-29] MEDS: SERTRALINE HCL 50 MG TABLET PO (09:24)
[2023-12-29] MEDS: ENOXAPARIN 40 MG/0.4 ML SYRINGE SUB-Q (09:24)
[2023-12-29] MEDS: PANTOPRAZOLE SODIUM IV 40 MG VIAL IV PUSH (09:24)
[2023-12-29] MEDS: guaiFENesin/DEXTROMETHORPHAN 10 ML UDC PO (09:30)
== END 2023-12-29 12:19 | disposition home or self-care (01) | DRG 871 ==
LOC: ANHED 21:30 → ANH2MED 22:05
PROVIDERS: Admitting Provider General Practice; Emergency Provider Physician Assistant; PCP Registered Nurse; Visit Provider Internal Medicine
DX: A41.9 Sepsis, unspecified organism (principal); J18.9 Pneumonia, unspecified organism; Z68.41 Body mass index [BMI] 40.0-44.9, adult; K52.9 Noninfective gastroenteritis and colitis, unspecified; Z20.822 Contact with and (suspected) exposure to COVID-19; F41.9 Anxiety disorder, unspecified; E03.9 Hypothyroidism, unspecified; E66.01 Morbid (severe) obesity due to excess calories; R16.0 Hepatomegaly, not elsewhere classified
CPT/HCPCS: 36415; 71046; 74177; 80048; 80053; 81001; 83605; 83735; 85025; 86308; 87040; 87045; 87427; 87449; 87493; 87637; 87651; 93005; 96361; 96365; 96375; 99285; A9270; G0378; J0456; J0696; J1650; J1836; J1885; J2470; J3480; J7030; Q9967

== ENCOUNTER 2024-01-18 12:26 | Outpatient (CLI) | payer BC, OTHER, SELFPAY ==
--- NOTE | ~2024-01-18 | XR_ITS ---
Clinical Indication: Cough PA and lateral views of the chest: Comparison: 12/26/2023 Findings: The lungs are clear, without evidence of focal consolidation or pleural effusion. Cardiome diastinal silhouette is within normal limits. Bones and soft tissues are unremarkable. Impression: Normal chest. Reviewed, dictated and finalized at location . Impression: Normal chest.
== END 2024-01-18 12:27 | disposition home or self-care (01) ==
LOC: MICIMG 12:29
PROVIDERS: PCP Registered Nurse; Visit Provider Registered Nurse
DX: R05.2 Subacute cough (principal)
CPT/HCPCS: 71046

== ENCOUNTER 2024-10-17 05:46 | Emergency (ER) | payer OTHER, SELFPAY ==
--- NOTE | ~2024-10-17 | US_ITS ---
EXAM: PELVIC ULTRASOUND HISTORY: right adnexal pain COMPARISON: None. Reference is made to the CT examination of the abdomen and pelvis dated 12/28/2023 FINDINGS: UTERUS: 7.6 x 3.7 x 3.4 cm. The endometrial complex measures 8mm in maximal caliber A 5 mm avascular irregular focus of decreased echogenicity is identified within the endometrial compl ex, perpendicular within the endometrial canal. RIGHT OVARY: The right ovary is unremarkable in echogenicity and size measuring 1.8 x 2.1 x 2.8 cm. Dopplerable flow is identified. LEFT OVARY: Despite prolonged interrogation, the left ovary was not visualized. No free fluid is identified within the pelvis. IMPRESSION: Despite prolonged interrogation, the left ovary was not visualized. The right ovary is unremarkable. 5 mm avascular irregular focus of decreased echogenicity within the endometrial complex for which carlos rt-term follow-up is recommended. Reviewed, dictated and finalized at location A. IMPRESSION: Despite prolonged interrogation, the left ovary was not visualized. The right ovary is unremarkable. 5 mm avascular irregular focus of decreased echogenicity within the endometrial complex for which short-term follow-up is recommended.
--- OUTSIDE RECORDS SUMMARY | 2024-10-17 05:48 | XMS_ITS | Referral Summary ---
Author Organization [facility] [place] [address] Address [facility] [place] [address] Care Team Providers Care Dielectric Embossing Machine Operator Name Role Phone Radha Higgins Primary Care Provider + Encounters Date Type Department Care Team Description 10/03/2024 Telephone [facility] Obstetrics and Gynecology [facility] [place] [address] Stacey Martinez from Last 3 Months Allergies No known active allergies Medications albuterol HFA (PROVENTIL HFA,VENTOLIN HFA,PROAIR HFA) 90 mcg/actuation inhaler INHALE 2 PUFFS INTO THE LUNGS EVERY 6 HOURS NEEDED FOR WHEEZE Active atomoxetine (STRATTERA) 80 mg capsule Take by mouth early childhood aide classroom before breakfast Active clonazePAM (KlonoPIN) 0.5 mg tablet [address] bid Active DULoxetine DR (CYMBALTA) 30 mg capsule Active esomeprazole DR (NexIUM) 20 mg capsule Take 1 capsule (20 mg total) by mouth daily 3 Active famotidine (PEPCID) 20 mg tablet Take 1 tablet (20 mg total) by mouth 2 (two) times a day 3 Active ferrous sulfate 325 mg (65 mg of elemental iron) tablet Take 1 tablet (325 mg total) by mouth daily 0 Active levothyroxine (SYNTHROID) 25 mcg tablet Take 1 tablet (25 mcg total) by mouth early childhood aide classroom before breakfast 3 Active LORazepam (ATIVAN) 0.5 mg tablet take 1 tablet (0.5 mg) by oral route 2 times per day Active medroxyPROGESTE Moreno (PROVERA) 10 mg tablet Take 1 tablet daily for 1st 10 days of every month, following negative test Active propranoloL (INDERAL) 10 mg tablet Active sertraline (ZOLOFT) 100 mg tablet Take 2 tablets (200 mg total) by mouth daily Active EPINEPHrine 0.3 mg/0.3 mL auto-injection syringe Inject 0.3 mL (0.3 mg total) into the muscle as instructed as needed 4 Active Active Problems Problem Noted Date Diagnosed Date Chest pain 09/22/2013 Social History Tobacco Use Types Packs/Day Years Used Date Smoking Tobacco: Never Smokeless Tobacco: Never Tobacco Cessation:Counseling Given: Not Answered AUDIT-C Answer Date Recorded Frequency of Alcohol Consumption Not on file 10/04/2023 Q2: How many drinks containi ng alcohol do you have on a typical day when you are drinking? 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 Gender Identity Not on file Sexual Orientation Not on file Last Filed Vital Signs Vital Sign Reading Time Taken Comments Blood Pressure 110/68 10/18/2023 4:32 PM CDT Pulse 97 10/18/2023 4:32 PM CDT Temperature 36.3 C (97.3 F) 10/18/2023 4:32 PM CDT Respiratory Rate 16 10/18/2023 4:32 PM CDT Oxygen Saturation 99% 10/18/2023 4:32 PM CDT Inhaled Oxygen Concentration - - Weight 122.5 kg (270 lb) 10/18/2023 4:32 PM CDT Height 170.2 cm (5' 7) 10/18/2023 4:32 PM CDT Body Mass Index 42.29 10/18/2023 4:32 PM CDT Plan of Treatment Not on file Insurance [facility] [address] [place] [address] [place] [address] [place] Care Teams Dielectric Embossing Machine Operator Relationship Specialty Start Date End Date Radha Higgins PA [address] [place] [id number] PCP - General Nurse Practitioner 06/10/23
--- OUTSIDE RECORDS SUMMARY | 2024-10-17 05:48 | XMS_ITS | Clinical Summary ---
Author Organization [facility] [place] [address] Address [address] [place] [address] Care Team Providers Care Pharmacy Salesperson Name Role Phone Radha Higgins Primary Care Provider + Allergies No known active allergies Medications albuterol HFA (PROVENTIL HFA,VENTOLIN HFA,PROAIR HFA) 90 mcg/actuation inhaler INHALE 2 PUFFS INTO THE LUNGS EVERY 6 HOURS NEEDED FOR WHEEZE Active atomoxetine (STRATTERA) 80 mg capsule Take by mouth credit reporting clerk before breakfast Active clonazePAM (KlonoPIN) 0.5 mg [...] 1 tablet (25 mcg total) by mouth credit reporting clerk before breakfast 3 Active LORazepam (ATIVAN) 0.5 [...] into the muscle as instructed as needed Active Active Problems Problem Noted Date Diagnosed Date Chest pain 09/22/2013 Encounters Date Type Department Care Team Description 10/03/2024 Telephone [facility] Obstetrics and Gynecology [address] [place] [address] Stacey Martinez from Last 3 Months Social History Tobacco Use Types Packs/Day Years [...] on file 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 Gender Identity Not on file Sexual Orientation Not on file Obstetrics History Last Filed Vital Signs Vital Sign Reading [...] 10/18/2023 4:32 PM CDT Plan of Treatment Health Maintenance Due Date Last Done Comments Depression Screening 2000 Hepatitis C Screening 2000 Regular Well Visit/Exam 18-64 02/13/2016 Cervical Cancer Screening 09/01/2022 09/01/2021 Covid-19 Vaccine (2023-2 5 season) 2023 07/28/2021, 12/07/2020, 11/16/2020 Influenza Vaccine (#1) 2024 , 01/19/2022, 03/07/2021, Additional history exists DTaP/Tdap/Td Vaccine (9 - Td or Tdap) 04/17/2029 04/17/2019, 03/18/2019, 11/27/2009, Additional history exists Pneumococcal vaccine <65 Completed 11/17/1999, 05/1999 Varicella Vaccines Completed 01/18/2007, 0 11/03/2003, 05/16/1999, Additional history exists HPV Vaccines Completed 04/05/2010, 11/08, 09/30/2009, Additional history exists Hepatitis B Screening Completed 01/19/2022 , 2000, 2000, Additional history exists Insurance [facility] [place] [address] [place] [address] [place] Care Teams Pharmacy Salesperson Relationship Specialty Start Date End Date Radha Higgins PA [address] [place] [id number] PCP - General Nurse Practitioner 06/10/23
--- OUTSIDE RECORDS SUMMARY | 2024-10-17 05:48 | XMS_ITS ---
Author Organization [facility] [employer] [facility] ([address]) Address [address] [place] [address] Care Team Providers Care Geospatial Scientist Name Role Phone Radha Higgins Primary Care Provider Jennifer Mariano Unavailable [phone] REASON FOR VISIT ARC follow-up Medications Medication [...] Female Encounters Encounter Location Date Provider Diagnosis [facility] [address] [place] [address] 08/20/2024 Jennifer Segovia Plan Of Treatment No Information Progress Notes * CINDIKAILEEBrielleDaOB: 8 (24 yo F)Acc No.[id number]:08/20/2024 Progress Notes Patient: Messi ILZER, Mell Provider: Gurinder Segovia MD :2000 A ge:24 Y S ex:Female Date:08/20/2024 Address:[facility] [address] [place], [id number] Pcp:Radha Higgins Subjective: * Chief Complaints: * [...] Electronic signature of Elba Segovia MD on 10/17/2024 at 05:48 AM CDT Sign off status: Pending * Provider: Gurinder Segovia MD Date: 08/20/2024 Generated for Tuyet mckeon/Jg/Omaira on: 10/17/2024 05:48 AM CDT
--- OUTSIDE RECORDS SUMMARY | 2024-10-17 05:48 | XMS_ITS | Clinical Summary ---
Author Organization [facility] Address [facility] [place] [address] Care Team Providers Care Masseur/Masseuse Name Role Phone Darcy Higgins Primary Care Provider Allergies No known active allergies Medications ferrous sulfate, 65 mg elemental, 325 (65 FE) MG tabletIndication s:Iron deficiency anemia, unspecified iron deficiency anemia type Take 1 tablet (325 mg total) by mouth daily with breakfast. 30 tablet 5 0 Active esomeprazole (NEXIUM) 20 MG capsuleIndicatio ns:Gastroesophag eal reflux disease without esophagitis,Naus ea Take 1 capsule (20 mg total) by mouth every morning before breakfast. 30 capsule 2 3 Active EPINEPHrine 0.3 MG/0.3ML injectionIndicat ions:Allergic reaction, initial encounter Inject 0.3 mLs (0.3 mg total) into the muscle as needed for Anaphylaxis. 1 each 1 4 Active sertraline (ZOLOFT) 50 MG tablet 4 Active famotidine (PEPCID) 20 MG tabletIndication s:Gastroesophage al reflux disease without esophagitis Take 1 tablet (20 mg total) by mouth 2 (two) times daily. 60 tablet 5 4 Active levothyroxine (SYNTHROID) 25 MCG tabletIndication s:Elevated TSH TAKE 1 TABLET(25 MCG) BY MOUTH EVERY MORNING 90 tablet 1 4 Active methocarbamol (ROBAXIN) 750 MG TabIndications:M uscle spasms of neck Take 2 tablets (1,500 mg total) by mouth 3 (three) times daily as needed. 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 30 tablet 4 Active Additional Information Patient not taking.Reported on 09/18/2024 Hospital, Clinic, or Other Facility Administered Medication Ordered Dose Route Frequency Start Date End Date Status ketorolac (TORADOL) injection 60 mgIndications:Acute left-sided low back pain with left-sided sciatica 60 mg IM Once 09/18/2024 09/18/2024 Ended Active Problems Problem Noted Date Diagnosed Date Irregular bowel habits 11/16/2022 Overview (11/16/2022): Added automatically from request for surgery [id number] Pharyngoesophageal dysphagia 07/27/2022 Overview (07/27/2022): Added automatically from request for surgery [id number] Regurgitation and rechewing 07/27/2022 Overview (07/27/2022): Added automatically from request for surgery [id number] Diarrhea, unspecified type 07/27/2022 Overview (07/27/2022): Added automatically from request for surgery [id number] Generalized pain 07/27/2022 Overview (07/27/2022): Added automatically from request for surgery [id number] COVID-19 03/21/2022 Nonalcoholic fatty liver disease 07/26/2021 Panic disorder with [place], mild agoraphobic avoidance and moderate panic attacks 04/22/2018 Bipolar 1 disorder, depressed, moderate (CMS/HCC HHS/HCC) 04/22/2018 Vasovagal near syncope 02/27/2018 Abdominal wall pain 10/17/2017 Hematuria 10/17/2017 Hypothyroidism 10/17/2017 Anemia 11/23/2016 Elevated TSH 11/23/2016 Overweight 11/23/2016 GERD (gastroesophageal reflux disease) 7 Menorrhagia 11/22/2015 Resolved Problems Problem Noted Date Diagnosed Date Resolved Date 37 weeks gestation of ([facility]) 04/17/2019 11/30/2020 Amniotic fluid leaking ([facility]) 04/16/2019 11/30/2020 Encounters Date Type Department Care Team Description 09/19/2024 Results Follow-Up [facility] [address] [phone] Darcy Higgins APNP XR LUMB SPINE 3V 09/18/2024 10:20 AM CDT Telemedicine [facility] [address] [phone] Darcy Higgins APNP Low Back Pain (Pt c/o lower back, pelvis, hips (left is worse than right) pain that sometimes shoots down her left leg x 2 weeks. The day this all began pt was doing outdoor lawn cleanup and moving a lot of heavy stuff.) 09/18/2024 Travel 09/03/2024 Telephone [facility] [address] [phone] Darcy Higgins APNP Pain from Last 3 Months Immunizations Immunization Administration Dates Next Due Dtap (Generic) 11/03/2003, 0,1998,06/09,1998 Fluzone 6 Months+ Quad (0.5 mL Prefilled Syringe) 02/23/2023,01/19/2022,03/07/2021,12/10,01/17/2019 HPV 04/05/2010,11/30/2009,09/29/2009 Hepatitis A (Generic) 09/04/2000,02/20/2000 Hepatitis B (Generic: Adult) 1998,03/16/19 98,1998 Hepatitis B(Engerix B Adult) 01/19/2022 Hib Vaccine, Prp-Omp 05/16/1999,08/16/18 99,1998,04/19 Influenza (Generic) 01/05/2017, 5,01/08/2013,01/09,12/20/2010,01/08/2010,03/12/2009 ,12/08/2008,02/13/2008,01/18/2007,11/0 04/2005,01/23/2005,02/18/2003, 2,02/03/2002 Influenza Adult (Generic) 01/21/2018,01/12/2016 MMR (Generic) 11/03/2003,05/16/1999 Meningococcal Vac A,C,Y,W-135 Sc 11/17/2015,11/08 PFIZER COVID-19 (ORIGINAL FO RMULATION, PURPLE CAP) mRNA, LNP-S, PF, 30 MCG/0.3 ML DOSE 12/07/2020,11/16/2020 Pneumococcal (Prevnar 7) 11/17/1999,09/09/1999 Polio Ipv (Generic) 11/03/2003, 0,1998,04/19 Rotavirus (RotaTeq) 1998,1998,1998 Tdap (Boostrix) 03/18/2019 Tdap (Generic) 11/27/2009 Varicella Vaccine 01/18/2007,02/14/1999 Family History Medical History Relation Comments Depression Brother Drug Abuse Brother Mental Health Brother Asthma Daughter Depression Father Heart Attack Father Hypertension Father Mental Health Father Drug Abuse Maternal Aunt Hypertension Maternal Grandmother Thyroid Disease Maternal Grandmother Depression Mother Hypertension Mother Mental Health Mother Thyroid Disease Mother Diabetes Paternal Grandfather Hypertension Paternal Grandfather Diabetes Paternal Grandmother Drug Abuse Paternal Grandmother Hypertension Paternal Grandmother Asthma Sister Depression Sister Hypertension Sister Mental Health Sister Relation Status Comments Brother Daughter Father Maternal Aunt Alive Maternal Grandmother Mother Paternal Grandfather Paternal Grandmother Sister Social History Tobacco Use Types Packs/Day Years Used Date Smoking Tobacco: Never Smokeless Tobacco: Never Tobacco Cessation:Counseling Given: No Alcohol Use Standard Drinks/Week Comments Never 0 (1 standard drink = 0.6 oz pur e alcohol) Humiliation, Afraid, Rape, and Kick questionnair e Answer Date Recorded Fear of Current or Ex-Partner No Emotionally Abused No 02/24/2019 Physically Abused No 02/24/2019 Sexually Abused No 02/24/2019 PHQ-2 Answer Date Recorded Patient Health Questionnaire-2 Score 1 11/22/2023 Comments No Sex and Gender Information Value Date Recorded Sex Assigned at Not on file Legal Sex Female 7:02 PM CDT Gender Identity Female 07/18/2021 12:08 PM CDT Sexual Orientation Straight 07/18/2021 12 :08 PM CDT Last Filed Vital Signs Vital Sign Reading Time Taken Comments Blood Pressure 114/84 01/18/2024 11:40 AM CDT Pulse 82 01/18/2024 11:40 AM CDT Temperature 36.7 C (98 F) 01/18/2024 11:40 AM CDT Respiratory Rate 16 01/18/2024 11:40 AM CDT Oxygen Saturation 98% 01/18/2024 11:40 AM CDT Inhaled Oxygen Concentration - - Weight 119.1 kg (262 lb 8 oz) 01/18/2024 11:40 A M CDT Height 167.6 cm (5' 6) 01/18/2024 11:40 AM CDT Body Mass Index 42.37 01/18/2024 11:40 AM CDT Plan of Treatment Health Maintenance Due Date Last Done Comments Annual Physical 04/20/2023 04/20/2022 COVID-19 Vaccine ( season) 2023 07/28/2021, 12/07/2020, 11/16/2020 PHQ-2 (Physician [place]) 04/09/2024 11/22/2023 Cervical Cancer Screening Pap Smear (Age 21 to 29) Every 3 Years 09/01/2024 09/01/2021, 09/01/2021 Cervical Cancer Screening 09/01/2024 DTaP, Tdap and Td Vaccines (9 - Td or Tdap) 04/17/2029 04/17/2019, 03/18/2019, 11/27/2009, Additional history exists Pneumococcal Vaccine: Pediatrics (0 to 5 Years) and At-Risk Patients (6 to 49 Years) Aged Out 11/17/1999, 09/09/1999 No longer eligibl e based on patient's age to complete this topic HPV Vaccines Completed 04/05/2010, 11/08, 09/29/2009 Meningococcal Vaccine Aged Out 11/17/2015, 010 No longer eligible based on patient's age to complete this topic Hepatitis C Completed 08/11/2021, 07/02/2015 Hepatitis B Vaccines Completed 01/19/2022, 1998, 1998, Additional history exists Meningococcal B Vaccine Aged Out No l onger eligible based on patient's age to complete this topic RSV Immunizations Under 20 Months Aged Out No longer eligible based on patient's age to complete this topic Procedures Procedure Name Priority Date/Time Associated Diagnosis Comments XR LUMB SPINE 3V Routine 09/18/2024 2:09 PM CDT Acute left-sided low back pain with left-sided sciatica TEST URINE Routine 09/18/2024 Amenorrhea CYTOPATH CERV/VAG THIN LAYER Routine 09/01/2021 12:44 PM CDT Well woman exam HEPATITIS C ANTIBODY Routine 08/11/2021 2:00 PM CDT from Last 3 Months or Most Recently Relevant to Health Maintenance Results * XR LUMB SPINE 3V (09/18/2024 2:09 PM CDT) Anatomical Region Laterality Modality Spine Radiographic Clary ging 09/18/2024 4:06 PM CDT Impressions 09/18/2024 4:07 PM CDT IMPRESSION: No radiographic abnormality. Ordered By: DARCY HIGGINS Interpreted By: Dominic Samuel MD, 09/18/2024 4:06 PM Narrative 09/18/2024 4:07 PM CDT [facility] [place] [address] Examination: XR LUMB SPINE 3V Exam time: 09/18/2024 1:26 PM Clinical history: Low back pain Comparison: 01/06/2020 lumbar spine Technique: AP, lateral, and lumbosacral views Findings: There are 5 lumbar-type vertebra. Vertebral body morphology appears unremarkable. Intervertebral disc heights appear normal. No evidence of fracture or subluxation. Sacroiliac joints appear unremarkable. Visualized sacral ala appear intact. Procedure Note Dominic Samuel MD - 09/18/2024 [facility] [place] [address] Examination: XR LUMB SPINE 3V Exam time: 09/18/2024 1:26 PM Clinical history: Low back pain Comparison: 01/06/2020 lumbar spine Technique: AP, lateral, and lumbosacral views Findings: There are 5 lumbar-type vertebra. Vertebral body morphologyappears unremarkable. Intervertebral disc heights appear normal. Noevidence of fracture or subluxation. Sacroiliac joints appearunremarkable. Visualized sacral ala appear intact. IMPRESSION: No radiographic abnormality. Ordered By: DARCY HIGGINS Interpreted By: Dominic Samuel MD, 09/18/2024 4:06 PM [facility] Final Resul t * TEST URINE (09/18/2024) URINE HCG TEST NEGATIVE [facility] Internal Control: [facility] URINE SPECIMEN FROM [facility] / Unknown 09/18/2024 Darcy TREJO URINE ORDERABLES Final Resu lt [address] [address], * Cytopath Cerv/Vag Thin Layer (09/01/2021 12:44 PM CDT) CLINICAL INFORMATION: Information not provided [facility] Clinical Information: 08/07/2021 REGULAR [facility] Date of Last Pap Information not provided [facility] Previous Biopsy? Information not provided [facility] SOURCE (QST) Cervix, Endocervix [facility] STATEMENT OF ADEQUACY: [facility] Comment: Satisfactory for evaluation. Endocervical/transformation zone component present. PAP INTERPRETATION/RESU LTS Negative for intraepithelial lesion or malignancy. [facility] PRODUCT CRAFTSMAN Que [facility] Comment: MVB, CT(ASCP) CT screening location: [place] [address] [address] [place] [address] COMMENT: [facility] Comment: EXPLANATORY NOTE: The Pap is a screening test for cervical cancer. It is not a diagnostic test and is subject to false negative and false positive results. It is most reliable when a satisfactory sample, regularly obtained, is submitted with relevant clinical findings and history, and when the Pap result is evaluated along with historic and current clinical information. 09/01/2021 12:4 4 PM CDT 09/02/2021 3:25 AM CDT Darcy TREJO PATHOLOGY/CYTOLOGY ORDERABL ES Final Result Performing Organization Address [facility]/ZIP Co de Phone Number [facility] [place] [address] [place] [address] * HEPATITIS C ANTIBODY (08/11/2021 2:00 PM CDT) HEPATITIS C AB NON-REACTI VE NON-REACT MYRON 08/12/2021 9:51 PM CDT [facility] Comment: ANTIBODIES TO HCV NOT DETECTED. DOES NOT EXCLUDE THE POSSIBILITY OF EXPOSURE TO HCV. 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
--- OUTSIDE RECORDS SUMMARY | 2024-10-17 05:49 | XMS_ITS | Encounter Summary ---
Author Organization [facility] Address [facility] [place] [address] Care Team Providers Care Registered Pharmacy Technician Name Role Phone Radha Higgins Primary Care Provider Encounter Details Date Type Department Care Team (Late st Contact Info) Description 06/28/2022 MyCappruptt Message Enc [facility] [address] [phone] Alba Raymond NP Results Social History Tobacco Use Types Packs/Day Years Used Date Smoking Tobacco: Never Smokeless Tobacco: Never Alcohol Use Standard Drinks/Week Comments No 0 (1 standard drink = 0.6 oz pur e alcohol) Humiliation, Afraid, Rape, and Kick questionnair e Answer Date Recorded Fear of Current or Ex-Partner No Emotionally Abused No 02/24/2019 Physically Abused No 02/24/2019 Sexually Abused No 02/24/2019 PHQ-2 Answer Date Recorded Patient Health Questionnaire-2 Score 0 06/01/2022 Comments No Sex and Gender Information Value Date Recorded Sex Assigned at Not on file Legal Sex Female 7:02 PM CDT Gender Identity Female 07/18/2021 12:08 PM CDT Sexual Orientation Straight 07/18/2021 12 :08 PM CDT COVID-19 Exposure Response Date Recorded In the last 10 days, have yo u been in contact with someone who was confirmed or suspected to have Coronavirus/COVID-19? Unable to assess 06/28/2022 11:50 AM CDT documented as of this encounter Functional Status * RETIRED Are you deaf or do you have serious difficulty hearing Answer Date of Assessment Author Status No 04/17/2019 9:00 AM PARALEGAL SECRETARY Activ e * RETIRED Are you blind or do you have serious difficulty seeing, even when wearing glasses? Answer Date of Assessment Author Status No 04/17/2019 9:00 AM PARALEGAL SECRETARY Activ e * Do you have serious difficulty walking or climbing stairs? Answer Date of Assessment Author Status No 04/17/2019 9:00 AM Florecita Villavicencio RN Active * Do you have difficulty dressing or bathing? Answer Date of Assessment Author Status No 04/17/2019 9:00 AM Florecita Villavicencio RN Active * Because of a physical, mental, or emotional condition, do you have difficulty doing errands alone such as visiting a doctor's office or shopping? Answer Date of Assessment Author Status No 04/17/2019 9:00 AM Florecita Villavicencio RN Active documented as of this encounter Mental Status * Because of a physical, mental, or emotional condition, do you have serious difficulty concentrating, remembering, or making decisions? Answer Entry Date Author Status No 04/17/2019 9:00 AM Florecita Villavicencio RN Active documented in this encounter Plan of Treatment Not on file documented as of this encounter Visit Diagnoses Not on filedocumented in this encounter Additional Health Concerns Infection Onset Date Last Indicated Resolved Time COVID-19 Rule Out 06/28/2022 06/28/2022 06/28/2022 2:11 PM CDT COVID-19 Rule Out 06/28/2022 06/28/2022 06/29/2022 1:25 PM CDT COVID-19 Rule Out 04/05/2023 04/05/2023 04/05/2023 3:38 PM PARALEGAL SECRETARY COVID-19 Rule Out 12/25/2023 12/25/2023 12/25/2023 12:58 PM CDT Assessment Noted Time PHQ-9 Depression Total Score: 1 06/01/19 9:49 AM PARALEGAL SECRETARY documented as of this encounter Care Teams Registered Pharmacy Technician Relationship Specialty Start Date End Date Gisela, Radha H, APNP [address] [place] [id number] PCP - General NURSE PRACTITIONER 02/17/19 documented as of this encounter
--- OUTSIDE RECORDS SUMMARY | 2024-10-17 05:49 | XMS_ITS | Data Portability ---
Author Organization [employer] , [facility] Address [address] [place] [address] Assessment Encounter Date Assessment Date Assessment LastModified by Organization Details LastModified Time 12/15/2022 12/15/2022 PCOS- declines OCP at this time Progesterone rx [email or web address] Not available 12/15/2022 16:43:49 09/30/2024 09/30/2024 The patient is a 24-year-old female with a new history of Polycystic Ovary Syndrome PCOS, dx in 2022 presenting with infertility concerns and irregular menstrual cycles. Despite tracking ovulation, she has been unable to conceive for over a year, and her menstrual cycles remain irregular, occurring every three to four months. Unlikely PCOS given her lab work, symptoms and ultrasound do not fully meet the diagnostic criteria. The patient also reports a history of tachycardia, with episodes of elevated heart rate during physical activity and stress, although she has not received feedback on her heart monitoring results. There is a family history of insulin resistance, raising concerns despite her normal A1c levels. During the visit, we discussed the importance of lifestyle changes as the first-line treatment. We also explored the potential use of medications like letrozole and Clomid to aid ovulation if necessary. The patient expressed concerns about insulin resistance, and we discussed testing options, including a LUIS M score. We emphasized the need for a cardiology follow-up to evaluate her tachycardia and ensure it is not indicative of a more serious condition. Given her history of fatty liver disease, we advised continued monitoring with her outreach counselor, especially in light of the new mass found on MRI.Finally, we advised scheduling a preconception counseling visit with maternal medicine to ensure a healthy plan. Not available 10/02/2024 10:34:37 Plan of Treatment Reminders Order Date Submit Date Provider Last Modified By Organization Details Last Modified Time Details Appointments None recorded. Lab hemoglobin A1c, QN, blood 2024 025 [facility] [place] [facility], [address] [place], [address], 5 17:40:02 unlisted lab - anti-mulle aiden hormone (amh), female 2024 025 [facility], [address] [facility] [address], [place], [address], 5 15:30:31 vitamin D, 25-hydroxy , total, serum 2024 025 [facility], [address] [place], [address], 5 15:30:31 TSH + free T4, serum 2024 025 [facility] [facility] [place] [facility], [address] [place] [address], [address], 5 11:46:11 T3, free, serum or plasma 2024 025 [employer] [place] [facility], [address] [place] [address], [address], 5 11:46:12 beta-HCG, quantitati ve, serum or plasma 2023 024 [facility] [facility], [address] [place] [address], [address], 4 11:53:45 test, urine 2023 024 [email or web address], [address] [place], [address], 4 16:41:23 TSH + free T4, serum 2023 024 [facility], [address] [place] [address], [address], 4 11:38:47 beta-HCG, quantitati ve, serum or plasma 2022 023 [facility] [place], [address] [place], [address], 3 10:21:39 prolactin, serum 2022 023 [facility], [address] [place], [address], 3 10:21:40 hemoglobin A1c, QN, blood 2022 023 [facility], [address] [place], [address], 3 10:11:11 lh + FSH, serum 2022 023 [facility], [address] [place], [address], 3 10:11:14 testostero ne, total, serum 2022 023 [facility], [address] [place], [address], 3 05:11:27 Referral maternal & medicine referral - Consult for pre-concep tion counseling . Patient has fatty liver with possible mass on liver and has been TTC for 1.5 years. Also issues with tachycardi a and possibly needing work up for POTS. Is being followed by hepatologi st and cardiologi st. 2024 025 [facility], [address], [address], 5 15:41:57 registered dietitian referral 2022 023 [email or web address] 3 [facility] Aides Teacher Nutrition Dietitian, [address] [place], [address], 3 11:50:34 Procedures None recorded. Surgeries None recorded. Imaging US, transvagin al 2023 024 [email or web address] Not available 4 16:47:25 Medication Orders Provera 10 mg tablet 2022 023 [email or web address] [id number], [address], [place], [place], [id number], 5 15:15:42 Patient TargetsNo targets recorded. Patient InstructionsNo instructions recorded. Reason for Referral Registered Dietitian Referra wise for Polycystic ovary syndrome Referring Physician: Halie Valladares, TACTICAL DEBRIEFER OFFICER, Encounter Date: 12/15/2022 [facility] Metabolic dysfunction-associated steatotic liver disease Consult for pre-conception counseling. Patient has fatty liver with possible mass on liver and has been TTC for 1.5 years. Also issues with tachycardia and possibly needing work up for POTS. 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 Referring Physician: Shannon Mahajan TACTICAL DEBRIEFER OFFICER, Encounter Date: 09/30/2024 Results Created Date Observation Date Name Description Value Unit Range Abnormal Flag Note LastModifiedBy Organization Detail LastModifiedTime 12/17/1912/16/2022 FSH AND LH FSH 6.8 mIU/m L Refer ence Range s are for femal es aged 18 years - Adult Symone l Menst ruati ng Femal e: Folli cular phase : 2.5-1 0.2 mIU/m L Mid-C ycle Peak: 3.4-3 3.4 mIU/m L Lutea l phase : 1.5-9 .1 mIU/m L Pregn ant: <0.3 mIU/m L Post- menop ausal : 23.0- 116.6 mIU/m L Not Available [facility] [address] [place], [address], 12/16/2022 10:11:14 12/17/1912/16/2022 FSH AND LH LH 12.57 U/L Refer ence Range s are for femal es aged 18 years - Adult Symone l Menst ruati ng Femal e: Folli cular phase : 1.9-1 2.5 mIU/m L Mid-C ycle Peak: 8.7-7 6.3 mIU/m L Lutea l phase : 0.5-1 6.9 mIU/m L Pregn ant: <0.1- 1.5 mIU/m L Post- menop ausal : 15.9- 54.0 mIU/m L Contr acept constance: 0.7-5 .6 mIU/m L Not Available [facility] [address] [place], [address], 12/16/2022 10:11:14 12/22/19 23 12/21/2022 TESTO STERO NE, TOTAL , MS testosterone , total, MS 24 NG/dL 2-45 For addit ional infor josie vergara refer to https ://ed ucati on.qu estFashion GPS. [employer]/f aq/To Albert miles LCMSM S (This link is being provi ded for infor sage nal/e ducat ional purpo ses only. ) (Note ) This test was devel oped and its macario tical perfo rmanc e lilian cteri stics have been deter mined by [employer]. It has not been clear ed or appro sohail by the FDA. This assay has been valid ated pursu ant to the CLIA regul ation s and is used for clini juanito purpo ses. MDF med fusio n [address] [facility] [address] [place] [address] [phone] Pollo manrique MD NO COLLE CTION DATE RECEI SOHAIL. WE HAVE USED THE DATE THE SPECI MEN WAS RECEI SOHAIL BY THIS LABOR ATORY THE COLLE CTION DATE. IF THIS IS INCOR RECT, JOSIE E CONTA CT CLIEN T SERVI THANIA. PHONE NUMBE R: [phone] Not Available [facility] [address], [place], [address], 12/21/2022 05:11:27 09/17/1909/16/2024 ANTI- MULLE AIDEN HORMO NE (AMH) , FEMAL E anti-mulleri an hormone (amh), female 4.84 NG/mL 0.69-1 3.39 Not Available [facility] [address], [place], [address], 09/16/2024 15:30:31 09/17/1909/16/2024 VITAM IN D,25- OH,TO VIPIN,I A vitamin D,25-oh,tota l,ia 34 NG/mL 30-100 normal Vitam in D Statu s 25-OH Vitam in D: Defic iency : <20 ng/mL Insuf ficie ncy: 20 - 29 ng/mL Optim al: > or = 30 ng/mL For 25-OH Vitam in D testi ng on patie nts on D2-frazier pplem entat ion and patie nts for whom quant itati on of D2 and D3 fract ions is requi red, the Quest Assur eD(TM ) 25-OH VIT D, (D2,D 3), LC/MS /MS is recom ulisses d: order code [id number] (josé miguel ents >2yrs ). See Note 1 NO COLLE CTION DATE RECEI SOHAIL. WE HAVE USED THE DATE THE SPECI MEN WAS RECEI SOHAIL BY THIS LABOR ATORY THE COLLE CTION DATE. IF THIS IS INCOR RECT, PLELINDA E CONTA CT CLIEN T SERVI THANIA. PHONE NUMBE R: [phone] Note 1 For addit ional infor josie vergara refer to http: //[facility]ie aubrey Vanegas stDia gnost ics.c om/fa q/FAQ 199 (This link is being provi ded for infor sage salomon/ higinio wise purpo ses only. ) Not Available [facility] [address], [place], [address], 09/16/2024 15:30:31 12/16/19 12/16/2022 HEMOG LOBIN A1C hemoglobin A1C 5.5 % <5.7 normal The refer ence range for HbA1c is indic ated in the table below . Sugge sted Diagn osis =6.5% Consi stent with diabe dottie 5.7 6.4% Consi stent with incre ased risk for diabe dottie (pred iabet ic) <5.7% Consi stent with the absen ce of diabe dottie Not Available [facility] [address] [place] [address], [address], 12/16/2022 10:11:11 12/16/19 23 12/16/2022 HCG, TOTAL , QUANT HCG, total, quant < 2 mIU/m L < 5 Refer ence Range s are for femal es aged 18 years - Adult Nonpr egnan t or preme nopau alcon <5 Postm enopa usal <10 Value s from diffe rent assay metho ds may vary. The use of this assay to monit or or to diagn ose patie nts with cance r or any other condi tion unrel ated to pregn christopher has not been valid ated by the [facility] actur er of this assay . Not Available [place], [address], 12/16/2022 10:21:39 12/16/19 23 12/16/2022 PROLA CTIN prolactin 8.4 NG/mL Refer ence Range s Femal e aged 18-Ad ult Nonpr egnan t: 2.8-2 9.2 ng/mL Pregn ant: 9.7-2 08.5 ng/mL Post- menop ausal : 1.8-2 0.3 ng/mL Pregn christopher, lacta tion, and the admin istra tion of oral contr acept constance can incre ase prola ctin renzo ntrat ions. Not Available [place], [address], 12/16/2022 10:21:40 04/16/19 24 04/17/2023 TSH W/ T4, FREE TSH 3.21 mIU/L 0.55 - 4.78 normal Refer ence Range Femal e aged 18-Ad ult: 0.55- 4.78 Pregn christopher Refer ence Range s First Trime ster 0.26- 2.66 Secon d Trime ster 0.55- 2.73 Third Trime ster 0.43- 2.91 Not Available [address], [address], 04/17/2023 11:38:47 04/16/19 24 04/17/2023 TSH W/ T4, FREE T4, free 0.95 NG/dL 0.89 - 1.76 normal Not Available [address], [address], 04/17/2023 11:38:47 04/16/19 24 04/17/2023 HCG, TOTAL , QUANT HCG, total, quant < 2 mIU/m L < 5 Refer ence Range s are for femal es aged 18 years - Adult Nonpr egnan t or preme nopau alcon <5 Postm enopa usal <10 Value s from diffe rent assay metho ds may vary. The use of this assay to monit or or to diagn ose patie nts with cance r or any other condi tion unrel ated to pregn christopher has not been valid ated by the samuel actur er of this assay . Not Available [address], [address], 04/17/2023 11:53:45 04/16/19 24 04/16/2023 pregn christopher test, urine HCG negati ve Not Available [facility] [address] [place], [address], 04/16/2023 16:41:13 09/12/19 25 09/12/2024 TSH W/ T4, FREE TSH 3.22 mIU/L 0.55 - 4.78 normal Refer ence Range Femal e aged 18-Ad ult: 0.55- 4.78 Pregn christopher Refer ence Range s First Trime ster 0.26- 2.66 Secon d Trime ster 0.55- 2.73 Third Trime ster 0.43- 2.91 Not Available [address], [address], 09/12/2024 11:46:11 09/12/19 25 09/12/2024 TSH W/ T4, FREE T4, free 1.02 NG/dL 0.89 - 1.76 normal Not Available [address], [address], 09/12/2024 11:46:11 09/12/19 25 09/12/2024 T3, FREE T3, free 3.3 pg/mL 2.3 - 4.2 normal Not Available [address], [address], 09/12/2024 11:46:12 09/12/19 25 09/12/2024 HEMOG LOBIN A1C hemoglobin A1C 5.4 % <5.7 normal The refer ence range for HbA1c is indic ated in the table below . Sugge sted Diagn osis =6.5% Consi stent with diabe dottie 5.7 6.4% Consi stent with incre ased risk for diabe dottie (pred iabet ic) <5.7% Consi stent with the absen ce of diabe dottie Not Available [address], [address], 09/12/2024 17:40:02 04/26/19 24 04/25/2023 US, trans vagin al No observ ation record ed. [email or web address] [facility] [address], [place], [address], 04/26/2023 11:01:01 Result Notes None recorded. Problems Name Problem SNOMED Code Status Onset Date Resolution Date Notes Provider Name and Address Organization Details Recorded Time Sexual function painful Completed 201701/21/2018 Unspecif ied dyspareu ton; Progress : Stable Added By: Shannon Mahajan Add to Current Problems : NO ProblemS tatus: Resolve Not Available [facility] 2 14:54:39 Pregnanc y, childbir th and puerperi um finding Completed 201805/20/2019 Encounte r for supervis ion of normal first pregnanc y, third trimeste r; Progress : Stable Added By: Agatha Red Add to Current Problems : NO ProblemS tatus: Resolve Not Available [facility] 2 14:54:42 Hypothyr oidism [id number] Completed 201805/20/2019 Other specifie d hypothyr oidism; Progress : Stable Added By: Maya Broussard Add to Current Problems : NO ProblemS tatus: Resolve; Start Date : 09/27/19 19 Hypot hyroidis m, unspecif ied; Progress : Stable Added By: Pardeep Coffman Add to Current Problems : NO ProblemS tatus: Resolve [facility] [address] [place], [address] , [facility] 5 15:33:58 Normal pregnanc y in multigra vijay [id number] 4106 Completed 201805/20/2019 Encounte r for supervis ion of other normal pregnanc y, third trimeste r; Progress : Stable Added By: Pardeep Coffman Add to Current Problems : NO ProblemS tatus: Resolve Not Available [facility] 2 14:54:43 Gestatio n period, 36 weeks [id number] Completed 201905/20/2019 36 weeks gestatio n of pregnanc y; Progress : Stable Added By: Pardeep Coffman Add to Current Problems : NO ProblemS tatus: Resolve [facility] 2 14:54:46 Gestatio n period, 8 weeks 21468912 Completed 201805/20/2019 8 weeks gestatio n of pregnanc y; Progress : Stable Added By: Keri Javier Add to Current Problems : NO ProblemS tatus: Resolve Not Available [facility] 2 14:54:44 Gestatio n period, 17 weeks [id number] Completed 201805/20/2019 17 weeks gestatio n of pregnanc y; Progress : Stable Added By: Mary Montelongo Add to Current Problems : NO ProblemS tatus: Resolve Not Available [facility] 2 14:54:47 Gestatio n period, 28 weeks [id number] Completed 201805/20/2019 28 weeks gestatio n of pregnanc y; Progress : Stable Added By: Justin Schafer Add to Current Problems : NO ProblemS tatus: Resolve Not Available [facility] 2 14:54:43 Removal of subcutan eous contrace ptive done [id number] 9100 Completed 201705/05/2018 Removal of subderma l implanta ble contrace ptive; Location : None Severity : Moderate Progress : Stable Added By: Maya Broussard Add to Current Problems : YES ProblemS tatus: Resolve Not Available [facility] 1 03:03:23 Insertio n of intraute rine contrace ptive device done [id number] 9109 Completed 201709/26/2018 Encounte r for insertio n of intraute rine contrace ptive device; Location : None Severity : Moderate Progress : Stable Added By: Maya Broussard Add to Current Problems : YES ProblemS tatus: Current Encounte r for insertio n of intraute rine contrace ptive device; Severity : Moderate Progress : Stable Added By: Maya Broussard Add to Current Problems : NO ProblemS tatus: Resolve Not Available [facility] 1 03:03:23 Gestatio n period, 37 weeks [id number] Completed 201905/20/2019 37 weeks gestatio n of pregnanc y; Progress : Stable Added By: Agatha Red Add to Current Problems : NO ProblemS tatus: Resolve Not Available [facility] 2 14:54:40 Pregnanc y, childbir th and puerperi um finding Completed 201805/20/2019 Encounte r for supervis ion of normal first pregnanc y, first trimeste r; Progress : Stable Added By: Keri Javier Add to Current Problems : NO ProblemS tatus: Resolve Not Available [facility] 2 14:54:39 Clinical finding Completed 201709/26/2018 Presence of (intraut erine) contrace ptive device; Progress : Stable Added By: Maya Broussard Add to Current Problems : NO ProblemS tatus: Resolve Not Available [facility] 2 20:54:02 Uses intraute rine contrace ption [id number] Completed 201709/26/2018 Patient with intraute rine contrace ptive device (IUD); Location : None Severity : Moderate Progress : Stable Added By: Maya Broussard Add to Current Problems : YES ProblemS tatus: Current Patient with intraute rine contrace ptive device (IUD); Severity : Moderate Progress : Stable Added By: Maya Broussard Add to Current Problems : NO ProblemS tatus: Resolve Not Available [facility] 1 03:03:24 Syphilis test finding [id number] Completed 201705/20/2019 Encounte r for screenin g for infectio ns with a predomin antly sexual mode of transmis blanca; Progress : Stable Added By: Agatha Red Add to Current Problems : NO ProblemS tatus: Resolve Not Available [facility] 2 20:54:02 Pregnanc y, childbir th and puerperi um finding Completed 201805/20/2019 Encounte r for supervis ion of normal first pregnanc y, second trimeste r; Progress : Stable Added By: Nafisa Bowie Add to Current Problems : NO ProblemS tatus: Resolve Not Available [facility] 2 14:54:42 Lochia finding Completed 201905/20/2019 Encounte r for routine postpart um follow-u p; Progress : Stable Added By: Radha Aceves Add to Current Problems : NO ProblemS tatus: Resolve Not Available [facility] 2 14:54:42 Gestatio n period, 34 weeks [id number] Completed 201805/20/2019 34 weeks gestatio n of pregnanc y; Progress : Stable Added By: Agatha Red Add to Current Problems : NO ProblemS tatus: Resolve Not Available [facility] 2 14:54:46 Uterine size for dates discrepa ncy Completed 201805/20/2019 Uterine size-angie e discrepa ncy, third trimeste r; Progress : Stable Added By: Stephanie Xiong Add to Current Problems : NO ProblemS tatus: Resolve Not Available [facility] 2 14:54:39 Sampling of vagina for Papanico laou smear Completed 201905/20/2019 Encounte r for gynecolo gical examinat ion (general ) (routine ) without abnormal findings ; Progress : Stable Added By: Agatha Red Add to Current Problems : NO ProblemS tatus: Resolve Not Available [facility] 2 14:54:45 Gestatio n period, 20 weeks 05224830 Completed 201805/20/2019 20 weeks gestatio n of pregnanc y; Progress : Stable Added By: Nafisa Bowie Add to Current Problems : NO ProblemS tatus: Resolve Not Available [facility] 2 14:54:45 Gestatio n period, 24 weeks [id number] Completed 201805/20/2019 24 weeks gestatio n of pregnanc y; Progress : Stable Added By: Nafisa Bowie Add to Current Problems : NO ProblemS tatus: Resolve Not Available [facility] 2 14:54:38 Gestatio n period, 32 weeks [id number] Completed 201805/20/2019 32 weeks gestatio n of pregnanc y; Progress : Stable Added By: Stephanie Xiong Add to Current Problems : NO ProblemS tatus: Resolve Not Available [facility] 2 14:54:43 Dyspareu ton 68540940 Completed 201701/21/2018 Dyspareu ton; Location : None Progress : Stable Added By: Shannon Mahajan Add to Current Problems : YES ProblemS tatus: Resolve Not Available [facility] 2 14:54:41 Pelvic and perineal pain 125427110 Completed 201701/21/2018 pelvic pain; Location : None Severity : Moderate Progress : Stable Added By: Shannon Mahajan Add to Current Problems : YES ProblemS tatus: Resolve Female pelvic pain; Location : None Severity : Moderate Progress : Stable Added By: Maya Broussard Add to Current Problems : YES ProblemS tatus: Resolve; Start Date : 08/04/19 18 Pelvi c and perineal pain; Severity : Moderate Progress : Stable Added By: Shannon Mahajan Add to Current Problems : NO ProblemS tatus: Resolve; Start Date : 08/04/19 18 Not Available [facility] 1 03:03:27 Gestatio n period, 12 weeks 80588241 Completed 201805/20/2019 12 weeks gestatio n of pregnanc y; Progress : Stable Added By: Keri Javier Add to Current Problems : NO ProblemS tatus: Resolve Not Available [facility] 2 14:54:46 Gestatio n period, 30 weeks 89805884 Completed 201805/20/2019 30 weeks gestatio n of pregnanc y; Progress : Stable Added By: Justin Schafer Add to Current Problems : NO ProblemS tatus: Resolve Not Available [facility] 2 14:54:41 Subcutan eous contrace ptive implant present [id number] Completed 201705/05/2018 Removal of subderma l implanta ble contrace ptive; Location : None Progress : Stable Added By: Maya Broussard Add to Current Problems : YES ProblemS tatus: Resolve Not Available [facility] 2 14:54:38 Removal of intraute rine device Completed 201809/26/2018 Encounte r for removal of intraute rine contrace ptive device; Progress : Stable Added By: Maya Broussard Add to Current Problems : NO ProblemS tatus: Resolve Not Available [facility] 2 14:54:38 Pelvic and perineal pain 579193631 Completed 201701/21/2018 Pelvic and perineal pain; Progress : Stable Added By: Shannon Mahajan Add to Current Problems : NO ProblemS tatus: Resolve Not Available [facility] 2 14:54:39 Screenin g for malignan t neoplasm of cervix Completed 201905/20/2019 Encounte r for screenin g for malignan t neoplasm of cervix; Progress : Stable Added By: Agatha Red Add to Current Problems : NO ProblemS tatus: Resolve Not Available [facility] 2 14:54:40 Female genital organ symptoms Completed 201701/21/2018 pelvic pain; Progress : Stable Added By: Shannon Mahajan Add to Current Problems : NO ProblemS tatus: Resolve Female pelvic pain; Progress : Stable Added By: Maya Broussard Add to Current Problems : NO ProblemS tatus: Resolve; Start Date : 08/04/19 18 Not Available [facility] 2 14:54:40 Venereal disease screenin g Completed 201701/21/2018 Screenin g for STDs; Progress : Stable Added By: Shannon Mahajan Add to Current Problems : NO ProblemS tatus: Resolve Not Available [facility] 2 14:54:42 Depressi on screenin g Completed 201905/20/2019 Encounte r for screenin g for maternal depressi on; Progress : Stable Added By: Radha Aceves Add to Current Problems : NO ProblemS tatus: Resolve Not Available [facility] 2 14:54:44 Antenata l screenin g Completed 201905/20/2019 Encounte r for antenata l screenin g for Streptoc occus B; Progress : Stable Added By: Pardeep Coffman Add to Current Problems : NO ProblemS tatus: Resolve Encounte r for other specifie d antenata l screenin g; Progress : Stable Added By: Agatha Red Add to Current Problems : NO ProblemS tatus: Resolve; Start Date : 09/27/19 19 Not Available [facility] 2 14:54:46 Antenata l screenin g for malforma tion Completed 201805/20/2019 Encounte r for antenata l screenin g for malforma tions; Progress : Stable Added By: Nafisa Bowie Add to Current Problems : NO ProblemS tatus: Resolve Not Available [facility] 2 20:54:02 Steatoti c liver disease [id number] Active Melly olmedo, [facility] 3 15:48:00 Bipolar affectiv e disorder , current episode mixed 685384440 Active [address], [address] , [facility] [employer] 5 15:26:56 Depressi ve disorder 21761611 Active 2024 HALIE V[address]ARES [address], [address] , [facility] [employer] [facility] 5 15:27:09 Hypothyr oidism 54758410 Active 2024 Other specifie d hypothyr oidism; Progress : Stable Added By: Maya Broussard Add to Current Problems : NO ProblemS tatus: Resolve; Start Date : 09/27/19 19 Hypot hyroidis m, unspecif ied; Progress : Stable Added By: Springfi eld, LeCretia Add to Current Problems : NO ProblemS tatus: Resolve HALIE VALLADARES [address], [address] , [facility] [employer] [facility] IV 5 15:33:58 Notes:Patient with intrauter ine contraceptive device (IUD) (V45.51) ; OnsetDate: 11/22/2017; ResolvedDate: 09/26/2018; Progress: Stable Added By: Maya Broussard Add to Current Problems: NO ProblemStatus: Resolve Encounter for insertion of intrauterine contraceptive device (V25.11) ; OnsetDate: 08/03/2017; ResolvedDate: 09/26/2018; Progress: Stable Added By: Maya Broussard Add to Current Problems: NO ProblemStatus: Resolve Problem Notes None recorded. Procedures Surgical History Date Name Laterality Status Provider Name and Address Organization Details Recorded Time 3 Nexplanon Removal completed CHANDNI BUCKLEY MD [address] [place] [address], [phone], [facility] IV 09/22/2022 15:31:18 3 Date of Last Pap Smear completed Margarita Kaiser [facility] IV 09/11/2024 15:17:41 excision of ganglion cyst completed [facility] 12/15/2022 15:50:41 endoscopy completed [facility] 12/15/2022 15:50:48 Imaging Results None recorded. Procedure Notes None recorded. Medical Equipment None Reported. Allergies No known drug allergies Medications Name Sig Start Date Stop Date Status Note LastModified by Organization Details LastModified Time medroxypr ogesteron e 10 mg tablet Take 1 tablet daily for 1st 10 days of every month, followin g negative pregnanc y test 09/11 completed Not Available Not Available Not Available doxycycli ne hyclate 100 mg capsule TAKE 1 CAPSULE BY MOUTH TWICE A DAY FOR 10 DAYS 09/19 completed Not Available Not Available Not Available benzonata te 200 mg capsule TAKE 1 CAPSULE (200 MG TOTAL) BY MOUTH 3 (THREE) TIMES DAILY NEEDED FOR COUGH. 09/19 completed Not Available Not Available Not Available sucralfat e 1 gram tablet take 1 tablet (1 gram) by oral route 2 times per day on an empty stomach take at least 4 hours before or after synthroi d 09/19 completed sucralfa te 1 gram oral tablet RxNorm: 755442 Allow Substitu tion: True Refill Denied: No Edited by: Tiffani Stafford ) on 03/19/20 19 Stopped by: Tiffani Stafford ) on Not Available Not Available Not Available metronida zole 0.75 % (37.5 mg/5 gram) vaginal gel insert 1 applicat orful (37.5 mg) by vaginal route QHS x 5 nights 06/10 completed metroNID AZOLE 0.75 % Vaginal Gel RxNorm: 899880 Allow Substitu tion: True Refill Denied: No Edited by: Radha Montague ) on 06/11/19 Stopped by: Radha Montague ) on 06/11/19 Not Available Not Available Not Available ondansetr on HCl 4 mg tablet 12/15 completed Not Available Not Available Not Available prednison e 20 mg tablet TAKE 2 TABLETS BY MOUTH ONCE DAILY FOR 3 DAYS, THEN TAKE 1 TABLET ONCE DAILY FOR 2 DAYS. 09/11 completed Not Available Not Available Not Available clonazepa m 0.5 mg tablet TAKE 1 TABLET BY MOUTH EVERY DAY NEEDED 09/11 completed Not Available Not Available Not Available sertralin e 100 mg tablet 09/19 completed Sertrali ne HCl Allow Substitu tion: True Refill Denied: No Refill DateOccu rred: 09/27/19 Edited by: alireza serna(Agatha Donovan ) on 05/20/19 Stopped by: alireza serna(Agatha Donovan ) on Not Available Not Available Not Available metronida zole 500 mg tablet TAKE 1 TABLET BY MOUTH EVERY 8 HOURS FOR 5 DAYS 09/11 completed Not Available Not Available Not Available sulfameth oxazole 800 mg-trimet hoprim 160 mg tablet TAKE 1 TABLET BY MOUTH TWICE DAILY FOR 7 DAYS 12/15 completed Not Available Not Available Not Available levothyro xine 25 mcg tablet TAKE 1 TABLET BY MOUTH EVERY MORNING active Not Available Not Available No t Available levothyro xine 75 mcg tablet take 1 tablet (75 mcg) by oral route once daily 05/06 completed levothyr oxine 75 mcg oral tablet RxNorm: 965748 Allow Substitu tion: True Refill Denied: No Edited by: Radha Montague ) on 05/06/19 Stopped by: Radha Montague ) on 05/06/19 Not Available Not Available Not Available Vitamin tablet Take 1 tab by mouth daily. 05/20 completed Multivit guerrero Tablet Allow Substitu tion: True Refill Denied: No Edited by: alireza serna(Agatha Donovan ) on 05/20/19 Stopped by: alireza serna(Agatha Donovan ) on 05/20/19 Not Available Not Available Not Available levothyro xine 100 mcg tablet take 1 tablet (100 mcg) by oral route once daily 05/06 completed levothyr oxine 100 mcg oral tablet RxNorm: 720312 Allow Substitu tion: True Refill Denied: No Edited by: Radha Montague ) on 05/06/19 Stopped by: aelx(Radha Deras ) on 05/06/19 Not Available Not Available Not Available propranol ol 10 mg tablet TAKE 1 TABLET BY MOUTH EVERY DAY active Not Available Not Available No t Available amoxicill in 875 mg tablet TAKE 1 TABLET BY MOUTH TWICE A DAY FOR 10 DAYS 09/11 completed Not Available Not Available Not Available famotidin e 20 mg tablet TAKE 1 TABLET BY MOUTH TWICE A DAY active Not Available Not Available No t Available lorazepam 0.5 mg tablet take 1 tablet (0.5 mg) by oral route 2 times per day 09/11 completed Not Available Not Available Not Available ciproflox acin 0.3 % eye drops PLEASE SEE ATTACHED FOR DETAILED DIRECTIO NS 09/19 completed Not Available Not Available Not Available Xanax 0.25 mg tablet take 1 tablet (0.25 mg) by oral route bid 05/20 completed Xanax 0.25 mg oral tablet RxNorm: 182249 Allow Substitu tion: False Refill Denied: No Refill DateOccu rred: 05/06/19 Edited by: Agatha Zuñiga ) on 05/20/19 Stopped by: alireza serna(Agatha Donovan ) on 05/20/19 Not Available Not Available Not Available levothyro xine 50 mcg tablet take 1 tablet (50 mcg) by oral route once daily 05/06 completed levothyr oxine 50 mcg oral tablet RxNorm: 915520 Allow Substitu tion: True Refill Denied: No Edited by: alex(Radha Deras ) on 05/06/19 Stopped by: alex(Radha Deras ) on 05/06/19 Not Available Not Available Not Available pantopraz ole 40 mg tablet,de layed release TAKE 1 TABLET BY MOUTH EVERY DAY 09/19 completed Not Available Not Available Not Available esomepraz ole magnesium 40 mg capsule,d elayed release TAKE 1 CAPSULE BY MOUTH EVERY DAY IN THE MORNING BEFORE BREAKFAS T 12/15 completed Not Available Not Available Not Available levothyro xine 125 mcg tablet take 1 tablet (125 mcg) by oral route once daily 02/25 completed levothyr oxine 125 mcg oral tablet RxNorm: 766631 Allow Substitu tion: False Refill Denied: No Refill DateOccu rred: 05/06/19 Edited by: Ainsley Corcoran ) on 02/26/20 Stopped by: elpidio(Ainsley Robertson ) on 02/26/20 20 Not Available Not Available Not Available polymyxin B sulfate 10,000 unit-trim ethoprim 1 mg/mL eye drops 09/11 completed Not Available Not Available Not Available sertralin e 25 mg tablet 09/19 completed Sertrali ne HCl Allow Substitu tion: True Refill Denied: No Refill DateOccu rred: 09/27/19 Edited by: Agatha Zuñiga ) on 05/20/19 Stopped by: Agatha Zuñiga ) on Not Available Not Available Not Available epinephri ne 0.3 mg/0.3 mL injection , auto-inje ctor INJECT IN THE MUSCLE NEEDED active Not Available Not Available No t Available levofloxa saman 750 mg tablet TAKE 1 TABLET BY MOUTH DAILY FOR 5 DAYS 09/11 completed Not Available Not Available Not Available methylpre dnisolone 4 mg tablets in a dose pack FOLLOW PACKAGE DIRECTIO NS 09/11 completed Not Available Not Available Not Available albuterol sulfate HFA 90 mcg/actua tion aerosol inhaler INHALE 2 PUFFS INTO THE LUNGS EVERY 6 HOURS NEEDED FOR WHEEZE 09/11 completed Not Available Not Available Not Available sertralin e 50 mg tablet TAKE 1 TABLET BY MOUTH EVERY MORNING 09/11 completed Not Available Not Available Not Available dicyclomi ne 10 mg capsule TAKE 1 CAPSULE BY MOUTH 4 TIMES DAILY BEFORE MEALS AND NIGHTLY. 12/15 completed Not Available Not Available Not Available phentermi ne 37.5 mg capsule TAKE 1 CAPSULE BY MOUTH EVERY DAY 12/15 completed Not Available Not Available Not Available amoxicill in 875 mg-potass ium clavulana te 125 mg tablet 09/11 completed Not Available Not Available Not Available esomepraz ole magnesium 20 mg capsule,d elayed release active Not Available Not Available Not Available Sprintec (28) 0.25 mg-0.035 mg tablet take 1 tablet by oral route once daily 09/19 completed Sprintec (28) 0.25-35 mg-mcg oral tablet RxNorm: 460201 Allow Substitu tion: True Refill Denied: No Edited by: Ainsley Corcoran ) on 02/26/20 Stopped by: elpidio(Ainsley Robertson ) on Not Available Not Available Not Available nitrofura ntoin monohydra te/macroc rystals 100 mg capsule 09/11 completed Not Available Not Available Not Available duloxetin e 30 mg capsule,d elayed release 09/11 completed Not Available Not Available Not Available Fe-Tabs 05/20 completed Fe-Tabs RxNorm: 86909 Allow Substitu tion: True Refill Denied: No Refill DateOccu rred: 05/30/19 Edited by: alireza serna(Agatha Donovan ) on 05/20/19 Stopped by: Agatha Zuñiga ) on 05/20/19 Not Available Not Available Not Available Prozac 1 daily 09/26 completed Prozac 40mg Capsules RxNorm: 598547 Allow Substitu tion: True Refill Denied: No Refill DateOccu rred: 05/30/19 Not Available Not Available Not Available pantopraz ole 09/19 completed Pantopra zole RxNorm: 0 Allow Substitu tion: True Refill Denied: No Refill DateOccu rred: 05/30/19 Edited by: Yessica Ivan) on 12/03/19 Stopped by: Yessica Ivan) on Not Available Not Available Not Available Vitamin B6 06/10 completed Vitamin B6 RxNorm: 0 Allow Substitu tion: True Refill Denied: No Refill DateOccu rred: 09/27/19 Edited by: alex(Radha Deras ) on 03/04/20 20 Stopped by: [email or web address](Hector hill, Radha ) on 06/11/19 20 Not Available Not Available Not Available Lexapro 1 p.o. qd 09/26 completed Lexapro 10mg Tablet RxNorm: 267459 Allow Substitu tion: True Refill Denied: No Refill DateOccu rred: 05/30/19 19 Not Available Not Available Not Available sodium,po tassium,m ag sulfates 17.5 gram-3.13 gram-1.6 gram oral soln TAKE 177 ML BY MOUTH EVERY 12 HOURS PER GI INSTRUCT IONS. 09/11 completed Not Available Not Available Not Available Nexplanon 09/06 completed Nexplano n Allow Substitu tion: True Refill Denied: No Refill DateOccu rred: 08/04/19 18 Not Available Not Available Not Available pyrazinam darek (bulk) 05/20 completed pyrazina mide (bulk) RxNorm: 8987 Allow Substitu tion: True Refill Denied: No Refill DateOccu rred: 09/27/19 Edited by: alireza kareem(Agatha Donovan ) on 05/20/19 Stopped by: [email or web address] kareem(Agatha Donovan ) on 05/20/19 Not Available Not Available Not Available Kyleena 09/25 completed Kyleena 19.5mg Intraute rine System RxNorm: 9165286 Allow Substitu tion: True Refill Denied: No Refill DateOccu rred: 09/07/19 18 Not Available Not Available Not Available Bonjesta 20 mg-20 mg tablet,im mediate and delay release Take 1 tablet(s ) by mouth at bedtime on an empty stomach. 01/24 completed Bonjesta 20mg/20m g Tablets, Extended Release RxNorm: 8877584 Allow Substitu tion: True Refill Denied: No Edited by: Yessica Ivan) on 12/03/19 19 Stopped by: Yessica Ivan) on 01/25/20 19 Not Available Not Available Not Available Sutab 1.259-0.1 88-0.225 gram tablet 09/11 completed Not Available Not Available Not Available Paxlovid 300 mg (150 mg x 2)-100 mg tablets in a dose pack PLEASE SEE ATTACHED FOR DETAILED DIRECTIO NS 09/19 completed Not Available Not Available Not Available Vitals Date Recorded Body height Body mass index (BMI) Body weight Body temperature Systolic And Diastolic Provider Name and Address Organization Details Last Updated DateTime 04/16/2023 172.72 cm 40.2 kg/m2 190293. 1 g 97.3 [degF] 118/70 mm[Hg] [facility] IV 4 16:15:12 Date Recorded Body height Body mass index (BMI) Body weight Body temperature Systolic And Diastolic Provider Name and Address Organization Details Last Updated DateTime 04/25/2023 172.72 cm 39.7 kg/m2 434507. 05 g 97.9 [degF] 106/70 mm[Hg] [facility] IV 4 11:14:54 Date Recorded Body height Body mass index (BMI) Body weight Body temperature Systolic And Diastolic Provider Name and Address Organization Details Last Updated DateTime 09/11/2024 170.18 cm 41.6 kg/m2 627542. 13 g 96.6 [degF] 120/76 mm[Hg] Margarita Kaiser [facility] IV 5 15:14:37 Date Recorded Body height Body mass index (BMI) Body weight Systolic And Diastolic Provider Name and Address Organization Details Last Updated DateTime 09/30/2024 170.18 cm 42.1 kg/m2 735627.91 g 130/78 mm[Hg] Jenniffer Blank [facility] IV 09/30/2024 12:15:41 Date Recorded Body height Body mass index (BMI) Body weight Body temperature Systolic And Diastolic Provider Name and Address Organization Details Last Updated DateTime 12/15/2022 172.72 cm 40.3 kg/m2 831025. 98 g 97.3 [degF] 112/74 mm[Hg] Mel Melgoza [facility] IV 3 15:48:38 Social History Question Answer Notes LastModified by Organizat ion Details LastModified Time Tobacco Smoking Status Never Smoker Mel Melgoza [facility], [facility] 12/15/2022 15:50:15 Are You Blind Or Do You Have Difficulty Seeing? No [email or web address] Information not available 09/11/2024 Are You Deaf Or Do You Have Serious Difficulty Hearing? No [email or web address] Information not available 09/11/2024 What Type Of Diet Are You Following? REGULAR [email or web address] Information not available 12/15/2022 How Many Children Do You Have? 1 [email or web address] Information not available 12/15/2022 What Is Your Relationship Status? Single [email or web address] Information not available 12/15/2022 Are You Sexually Active? Yes Information not available 12/15/2022 Sex: Female Functional Status Question Answer Note LastModified by Organizat ion Details LastModified Time Do you use any illicit or recreational drugs? No [email or web address] Information not available 12/15/2022 Do you or have you ever used any other forms of tobacco or nicotine? No Information not available 12/15/2022 What is your level of alcohol consumption? None [email or web address] Information not available 12/15/2022 What is your exercise level? Occasional [email or web address] Information not available 12/15/2022 Mental Status None recorded. Family History Relationship Description Onset Age of this Age Resolved Age Notes LastModified by Organization Details LastModified Time Father No current problems or disability [email or web address] Not available 12/15 15:50:01 Mother No current problems or disability [email or web address] Not available 12/15 15:50:01 Medical History Condition Response Polycystic Ovarian Syndrome Y Gynecological History Statement/Question Response Date of Last Colonoscopy Date of last HPV Date of LMP 08/06/2024 Most Recent Bone Density Date of Last Pap Smear 04/09/2022 Duration of Flow (days) 7 Most Recent Mammogram Current Control Method None Age at Menarche 11 Obstetrics History GPAL:G 1 P 1 0 0 1 Type Value Full Term 1 Living 1 Total 1 Past Encounters Encounter ID Performer Location Encounter Start Date Encounter Closed Date Diagnosis/Indication Diagnosis SNOMED-CT Code Diagnosis ICD10 Code Diagnosis Note [id number] CHANDNI ALMARAZ MD [facility] [address] [facility], [facility] SAMI Delacruz [address] 09/19/2022 15:40:26 09/20/2022 12:30:07 Contraception care management 605085162 Z30.9 Slynd samples provided Removal of subcutaneous contraceptive 449789957 Z30.46 Obese class III 22324711 5 E66.01 [id number] HALIE VALLADARES [facility] [address] [place] [address] 12/15/2022 15:27:24 12/16/2022 10:16:00 Polycystic ovary syndrome 474770544 E28.2 Hypothyroidism 07537548 E03.9 Obesity 302937882 E66.9 Abnormal u terine bleeding 0027263844 9100 N93.9 Discussed if >60 days no bleeding or 90; 10 day provera if negative UPT Progestero ne; Provera 10 mg take daily for 1st 10 days of every month, following negative test [id number] HALIE [facility]ALLADARES [facility] [address] [place] [address] 04/16/2023 15:51:09 04/16/2023 17:03:49 Abnormal uterine bleeding 9309639160 9100 N93.9 Discussed if >60 days no bleeding or 90; 10 day provera if negative UPT Progestero ne; Provera 10 mg take daily for 1st 10 days of every month, following negative test. Pt was given rx last visit. Reports she took this monthly. Discussed again taking if no period after 90 days.RTC for TVUS Unprotecte d sexual intercourse 2921083 Z72.51 Polycystic ovary syndrome 596587826 E28.2 [id number] [facility] [address] [place] [address] 04/25/2023 10:10:10 04/25/2023 16:47:25 Abnormal uterine bleeding 6423090118 9100 N93.9 TVUS WNL Polycystic ovary syndrome 456800147 E28.2 Discussed Diet and Exercise.W ent over Supplement s to help regulate periods.Pt is not currently trying to conceive but would like to start thinking about it- edcuation given. Family ashley nning education 163160404 Z30.02 Pt is eventually Trying to Conceive. Education given.-- Reviewed normal fecundity, peak fertility around time of ovulation, and monitoring menses. -- Pt reports menses come every month and last around 5 days. She is not tracking her menses, she will start tracking.- - Discussed intercours e during ovulation Q other day.-- Recommende d starting PNV.-- Discussed following up within 2-4 weeks of first pos UPT and in 1 year if pt has not had positive UPT. [id number] HALIE VALLADARES, [facility] [address] [place] [address] 09/11/2024 15:07:13 09/11/2024 16:42:53 Polycystic ovary syndrome 433919026 E28.2 Last visit on 05/02/2023: Discussed Diet and Exercise.W ent over Supplement s to help regulate periods.Pt is not currently trying to conceive but would like to start thinking about it- edcuation given.---- Pt reports periods every 3 months. Pt states that she did not start supplement s for PCOS because it would make her anxiety worse. Since last visit, 4lb weight gain. In 2022 Dietitian referral was sent, she did not follow up on this. Education given that supplement s and weight loss would help periods to regulate and help regulate/i ncrease ovulation. Pt states that she has been TTC for 1.5 years and would like medication to help get .L ast visit on 05/02/2023 pt had reported that she was not currently TTC.Will have pt follow up with MD to see if ovulation induction is an option. Complex pt with variety of PMH. Anxiety 97970194 F41.9 Bipolar af fective disorder, current episode mixed 077735688 F31.63 Pt reports she stopped all medication s because she thought this was making anxiety worse. Hypothyroidism 10842816 E03.9 Pt reports she has not been taking medication as prescribed . Body mass index 40+ - severely obese 390613522 E66.01 [id number] Shannon Mahajan MD [facility] [address] [place] [address] 09/30/2024 12:00:55 09/30/2024 13:07:22 Reproductive care management 119751676 Z31.81 Tachycardia 0644313 R00. 0 The patient is advised to follow up with a cardiologi st to evaluate her tachycardi a and ensure it is not indicative of a more serious condition such as supraventr icular tachycardi a. Also to get results from her holter monitor. Metabolic dysfunction-associate d steatotic liver disease 9481312247 K76.0 The patient is advised to schedule a preconcept ion counseling visit with maternal medicine to discuss her conditions and ensure a healthy plan.Keep appointmen ts with hepatologi st to insure that they feel it is ok with get with current liver concerns.E ducation was provided on pre-eclamp augusto, Eclampsia and HELLP syndrome that also effect the liver during . 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 Medication s such as letrozole and Clomid were discussed as options to aid ovulation if lifestyle changes are insufficie nt. Discussed needing to assure her health is optimal prior to getting due to PMH.Patien t has gotten positive ovulation predictor sticks, once every 3 months. Cycles only every 3-4 months.Pat ient has 1 child with different partner and FOB has a child with different partner. They do not have children together.I have reviewed lab work and discussed with patient. TSH, AMH, A1C and Vit D WNL. The patient was initially evaluated by JIMMY Maguire, who completed the history examinatio n, and preliminar y assessment . I, Shannon Mahajan MD, entered the room to review and discuss the care plan with the patient. After reviewing the specific findings and documentat ion provided by Linda, I confirmed the diagnosis and care plan, addressing any additional concerns or questions raised by the patient. The final plan of care was developed emanuel vela and has been documented accordingl y. 30 minutes spent reviewing history, counseling and documentat ion of today's patient visit with >50% in face to face communicat ion with Mell. Health Concerns Section Related Observation LastModified by Organization Detai ls LastModified Time None Recorded Concern Status LastModified by Organization Details LastModified Time None Recorded Advance Directives Directive None Recorded Payers Insurance Date Sequence Insurance Name Policy Number Policy Oliveira Covered Member ID Oliveira Member ID Guarantor Name 04/14/2023 2 [employer] (HMO) [id number] Mell Kilzer [id number] Mell M Kilzer 09/10/2024 3 [place] Mell M Kilzer [id number] Mell M Kilzer 06/01/2023 2 [employer] (POS II) Mell M Kilzer [id number] Mell M Kilzer 04/16/2023 1 [facility] (EPO) [id number] Mell Kilzer [id number] Mell M Kilzer 05/07/2024 2 [facility] Mell M Kilzer [id number] Mell M Kilzer 11/19/2023 4 [facility] [id number] Landon Kilzer [id number] Mell M Kilzer 05/05/2024 1 [facility] [id number] [place] Kilzer [id number] Mell M Kilzer 07/08/2024 1 [facility] AET (PPO) [id number] Landon Kilzer [id number] Mell M Kilzer 09/10/2024 1 [facility] (MEDICAID REPLACEMENT - HMO) [id number] Mell M Kilzer [id number] Mell M Kilzer 10/03/2024 1 [facility] (MEDICAID HMO) [id number] Mell M Kilzer [id number] Mell M Kilzer Notes Date Note Type Note Provider Name and Address Organization Details Recorded Time 12/15/2022 text/html 9 days late and patient states has taken multiple UPT at home that were negative. Hasn't had a period since September. Pt stated she just wants to know what is going on. She said her PCP told her she had ovarian cysts. JEREMIAS MYRICK [address] [facility], [place], [address], [facility] IV 12/18/2022 13:09:39 04/16/2023 text/html Pt states since last year she has no had a period, she was diagnosed with PCOS and was given something to start them back up. Pt states she has been having symptoms. No period since January. She states took test and came back all negative. She states she is bloated and feel nauseous all the time. 04/16/2023 upt Negative HALIE VALLADARES [facility] [address] [facility], [place], [address], [facility] IV 04/16/2023 16:51:33 04/25/2023 text/html Mell presents today for Amenorrhoea. She states she only had a period May, and Jan 2023. October of 2022 she stopped her BC. She has no other concerns HALIE VALLADARES TUNG [address] [facility], [place], [address], [facility] IV 04/25/2023 11:30:25 09/11/2024 text/html Mell is here to discuss conceiving. She states she wants advise on how to do ovulation tracking. She's been trying to get for about a year and a half. She states she's also been having sharp, shooting lower abdominal pain around the time she ovulates. She states this has been present for over a year. She wants to be screened for endometriosis as well. HALIE VALLADARES TUNG [address] [facility], [place], [address], [facility] [employer] IV 09/11/2024 16:34:33 09/30/2024 text/html The patient is a 24-year-old female presenting with infertility concerns and irregular menstrual cycles. She has been attempting to conceive for over a year without success, despite tracking ovulation using various methods. Her menstrual cycles occur every three to four months, previously occurring only twice a year, which improved after discontinuing psychiatric medications. The patient was diagnosed with Polycystic Ovary Syndrome (PCOS) in 2022, although her lab work and ultrasound findings do not fully meet the diagnostic criteria. She experiences heavy menstrual bleeding and irregular cycles, but does not exhibit other common symptoms such as hirsutism. Lifestyle changes were discussed as a primary intervention for managing PCOS. The patient reports a history of tachycardia, with episodes of elevated heart rate during physical activity and stress. She has undergone heart monitoring, but results have not been discussed with her. There is a family history of insulin resistance, and the patient is concerned about this condition despite normal A1c levels. The patient has a history of fatty liver disease diagnosed in 2021, with regular monitoring through MRI and liver function test with outreach counselor. A recent MRI indicated a new mass, prompting further evaluation before attempting . Shannon Mahajan MD [facility] [place], [address] 10/02/2024 10:35:45 OBGyn Episode Ob Episode Information Episode Created Date Number of Fetuses Patient Bloodtype Patient rh Status Prepregnancy Weight lbs Domestic Partner Domestic Partner Phone Father Name Pilot Plant Supervisor Status 06/24/19 22 1 CLOSED Fetus Data First Name Last Name Admitted to NICU Weight (g) Sex Living Outcome Pediatric Complications Fetus ID Race Codes Race Delivery Type 3316.89 15 F [id number] Zhao Calculation Initial Zhao Date Initial Exam Date Initial Exam Provider Initial Ultrasound Date Last Menstrual Period Date Ultra Sound Weeks Gestation 0 Eighteen To Twenty Week Zhao Update Ultra Sound Date Fundal Height At Umbil Quickening Date Ultra Sound Latest Weeks Gestation Final Zhao Confirmed By Final Zhao Confirmed Date Final Zhao Date Ultra Sound Latest Days Gestation 0 0 Menstrual History Last Menstrual Date Menses Monthly On Bcp Conception Prior Menses Frequency Hcg Plus Date Menarche Onset Age Delivery Information Delivery Date Delivery Type Labor Anesthesia Weeks Gestation Incision Type Labor Labor Length Hrs Delivered By Post Complications Tubal Sterilization Discharge Date Comments 0 38 true Comments : Pt states she had some add'l vaginal bleeding after and had to be given medicatio n. Medicatio n unkown by pt. Discharge Information Feeding Method Contraceptive Method Maternal HG B and HCT Levels
--- OUTSIDE RECORDS SUMMARY | 2024-10-17 05:49 | XMS_ITS | Patient Health Record ---
Author Organization [facility]ly [facility], [facility] [place] ([address]) Address [address] [place] [address] Care Team Providers Care Coal Trammer Name Role Phone Radha Higgins Primary Care Provider Jennifer Mariano Unavailable [phone] Allergies No Known Allergies Results Component Value Reference Range Notes Spirometry Reviewed date: Interpretation:Normal Performing Lab: Notes/Report: Normal SpiroPreBronchodilator_FVC 3.69 SpiroPostBronchodilator_FEF25_75 0 SpiroPreBronchodilator_FEF25_75 3.63 SpiroPreBronchodilator_FEV1 3.15 SpiroPrecentPredictionPost_FEF25_75 0 SpiroPrecentPredictionPost_FEV1 0 SpiroPrecentPredictionPost_FEV1_OVER_FVC 0 SpiroPrecentPredictionPost_FVC 0 SpiroPrecentPredictionPre_FEF25_75 89.2 SpiroPrecentPredictionPre_FEV1 90.3 SpiroPrecentPredictionPre_FEV1_OVER_FVC 99.1 SpiroPrecentPredictionPre_FVC 90.4 SpiroPredicted_FEF25_75 4.07 SpiroPreBronchodilator_FEV1_OVER_FVC 85.41 SpiroPreBronchodilator_PEF 6.07 SpiroPostBronchodilator_FVC 0 SpiroPostBronchodilator_FEV1 0 SpiroPostBronchodilator_FEV1_OVER_FVC 0 SpiroPostBronchodilator_PEF 0 SpiroPredicted_FVC 4.08 SpiroPredicted_FEV1 3.49 SpiroPredicted_FEV1_OVER_FVC 86.16 SpiroPredicted_PEF 6.83 Spirometry Reviewed date: Interpretation:Normal Performing Lab: Notes/Report: Normal SpiroPreBronchodilator_FVC 3.76 SpiroPostBronchodilator_FEF25_75 0 SpiroPreBronchodilator_FEF25_75 3.68 SpiroPreBronchodilator_FEV1 3.24 SpiroPrecentPredictionPost_FEF25_75 0 SpiroPrecentPredictionPost_FEV1 0 SpiroPrecentPredictionPost_FEV1_OVER_FVC 0 SpiroPrecentPredictionPost_FVC 0 SpiroPrecentPredictionPre_FEF25_75 89.5 SpiroPrecentPredictionPre_FEV1 92 SpiroPrecentPredictionPre_FEV1_OVER_FVC 99.8 SpiroPrecentPredictionPre_FVC 91.7 SpiroPredicted_FEF25_75 4.11 SpiroPreBronchodilator_FEV1_OVER_FVC 86.22 SpiroPreBronchodilator_PEF 5.61 SpiroPostBronchodilator_FVC 0 SpiroPostBronchodilator_FEV1 0 SpiroPostBronchodilator_FEV1_OVER_FVC 0 SpiroPostBronchodilator_PEF 0 SpiroPredicted_FVC 4.1 SpiroPredicted_FEV1 3.52 SpiroPredicted_FEV1_OVER_FVC 86.42 SpiroPredicted_PEF 6.85 Reason For Referral No Information Medications Medication SIG (Take, Route, Frequency, Duration) Notes Start Date End Date Status Sertraline HCl 50 MG Oral; Duration: 30 Days Active Famotidine 20 MG Oral; Duration: 30 Days Active clonazePAM 0.5 MG 1 tablet Orally Once a day Active NexIUM 40 MG 1 capsule 1/2 to 1 h our before morning meal Orally Once a day Active Levothyroxine Sodium 25 MCG Oral; Duration: 90 Days Active Vitamin E 33.5 MG (50 UNIT) as directed Orally Active Albuterol Sulfate HFA 108 (90 Base) MCG/ACT 2 puffs as needed Inhalation every 4 hrs; Duration: 30 days Active DHA 200 MG 1 capsule with a preet l Orally Once a day Active Budesonide-Formoterol Fumarate 80-4.5 MCG/ACT 2 puffs Inhalation Twice a day; Duration: 30 days Active Social History Tobacco Use: Social History Observation Description Date Details (start date - stop date) Never Smoker NA - NA Sex Assigned At : Social History Observation Description Sex Assigned At Female Tobacco Control (Standard) Question Answer Notes Tobacco use: Nonsmoker Problems Problem Type SNOMED Code ICD Code Onset Dates Problem Status W/U Status Risk Notes Problem Chronic allergic conjunctivitis (58158947) Other chronic allergic conjunctivitis (H10.45) Active confirmed Problem Allergic rhinitis (50372991) Other allergic rhinitis (J30.89) Active confirmed Problem Mild persistent asthma, uncomplicated (J45.30) Active confirmed Vital Signs Blood pressure diastolic 76 mm Hg 02/26/2024 Oximetry 100 % 02/26/2024 Height 66 in 02/26/2024 Blood pressure systolic 110 mm Hg 02/26/2024 Weight 263.8 lbs 02/26/2024 BMI 42.57 kg/m2 02/26/2024 Encounters Encounter Location Date Provider Diagnosis [address] [employer] [address] [address] 08/20/2024 Jennifer Segovia [address] [address] 01/29/2024 Jennifer Segovia Cough, unspecified R05.9 ; Dermatitis, unspecified L30.9 and Other allergic rhinitis J30.[address] [employer] [address] [address] 02/26/2024 Jennifer Segovia Cough, unspecified R05.9 ; Mild persistent asthma, uncomplicated J45.30 ; Dermatitis, unspecified L30.9 and Other allergic rhinitis J30.[address] [address] 01/30/2024 Jennifer Segovia [address] [address] 01/30/2024 Jennifer Segovia Assessments Encounter Date Diagnosis (ICD Code) Assessment Notes Treatment Notes Treatment Clinical Notes Section Notes 01/29/2024 Dermatitis, unspecified (ICD-10 - L30.9) Patch testing was already performed at [facility] earlier this year and negative. Recommend continued avoidance of problematic substances. 01/29/2024 Cough, unspecified (ICD-10 - R05.9) May have persistent/cough variant asthma. Spirometry today is normal. Start a trial of Symbicort and prn albuterol. F/u in 1 month 02/26/2024 Mild persistent asthma, uncomplicated (ICD-10 - J45.30) ACT 22, Spirometry today is normal. Continue Symbicort and prn albuterol 02/26/2024 Cough, unspecified (ICD-10 - R05.9) 01/29/2024 Other allergic rhinitis (ICD-10 - J30.89) Given the history and symptoms, skin testing was performed to common aeroallergens to determine atopic status. Only sensitivity to 1 species of mold. Most likely suffers from non allergic rhinitis. We discussed avoidance measures. 02/26/2024 Dermatitis, unspecified (ICD-10 - L30.9) Patch testing was already performed at [facility] earlier this year and negative. Recommend continued avoidance of problematic substances. 02/26/2024 Other allergic rhinitis (ICD-10 - J30.89) Given the history and symptoms, skin testing was performed to common aeroallergens to determine atopic status. Only sensitivity to 1 species of mold. Most likely suffers from non allergic rhinitis. We discussed avoidance measures. 01/29/2024 Other 02/26/2024 Other Plan Of Treatment No Information Medical (General) History Medical History History ICD Code Anxiety disorder, unspecified F41.9 Depression, unspecified F32.A Gastro-esophageal reflux disease without esophagitis K21.9 Hospitalization History Reason Date(Month/Year) food poisoning and pneumonia
--- OUTSIDE RECORDS SUMMARY | 2024-10-17 05:49 | XMS_ITS | Encounter Summary ---
Author Organization [facility] Address [address] [place] [address] Care Team Providers Care Crab Fisherman Name Role Phone Radha Higgins APRN-RECYCLING DIRECTOR Primary Care Provider Reason for Visit * Radiology Services (Routine) - Closed Specialty Diagnoses / Procedures Referred By Shiva t Referred To Contact MRI Diagnoses Liver lesion Procedures MRI Abdomen Wwo Contrast Pinky Alfaro, HEMATOLOGIST-RECYCLING DIRECTOR [address] [place] [address] Phone: tel: fax: Referral ID Status Reason Start Date Expiration Date Visits Re quested Visits Authorized [id number] Closed 10/03/2024 04/01/2025 1 1 Encounter Details Date Type Department Care Team (Late st Contact Info) Description 10/15/2024 4:30 PM CDT - 10/15/2024 11:59 PM CDT Hospital Encounter [facility] MRI [address] [place] [address] Pinky Alfaro, HEMATOLOGIST-RECYCLING DIRECTOR [address] [place] [address] Discharge Disposition: Home or Self Care Social History Tobacco Use Types Packs/Day Years Used Date Smoking Tobacco: Never Smokeless Tobacco: Never Alcohol Use Standard Drinks/Week Comments Not Currently 0 (1 standard drink = 0.6 oz pure alcohol) 1-2 times a month prior to stopping 2019 Comments Unknown Sex and Gender Information Value Date Recorded Sex Assigned at Not on file Legal Sex Female 11:04 AM LEAD BURNER Gender Identity Not on file Sexual Orientation Not on file documented as of this encounter Medications at Time of Discharge atomoxetine (STRATTERA) 80 MG capsule Take by mouth every morning Etonogestrel (NEXPLANON SC) ferrous sulfate 325 (65 FE) MG tablet Take 325 mg by mouth once daily levothyroxine (SYNTHROID) 25 MCG tablet Take 25 mcg by mouth daily before breakfast propranolol (INDERAL) 10 MG tablet Take 10 mg by mouth every 8 hours sertraline (ZOLOFT) 100 MG tablet Take 200 mg by mouth once daily documented as of this encounter Plan of Treatment Not on file documented as of this encounter Procedures Procedure Name Priority Date/Time Associated Diagnosis Comments MRI ABDOMEN WWO CONTRAST Routine 10/15/2024 5:38 PM CDT Liver lesion documented in this encounter Results * MRI Abdomen Wwo Contrast (10/15/2024 5:38 PM CDT) Anatomical Region Laterality Modality Abdomen Magnetic Resonan ce Angiography 10/16/2024 8:05 AM CDT Impressions 10/16/2024 9:47 AM CDT Impression: 1.Liver: Hepatic steatosis without imaging features of cirrhosis. 2.Hepatic observations: Unchanged benign hemangioma in hepatic segment 7. There are 3 arterially enhancing observations in hepatic segment 5 likely represent flash filling hemangiomas or vascular shunts. 3.Biliary system: Normal gallbladder and bile ducts. Pancreatic duct is nondilated. > Dictated by Lizeth Ramirez MD, (residential roofer). I, Silvino Huang MD have personally reviewed and interpreted this examination/study. > Interpreting Provider: Silvino Huang MD on 10/16/2024 9:47 AM Narrative 10/16/2024 9:47 AM CDT PROCEDURE: MRI ABDOMEN WWO CONTRAST, DATE/TIME OF EXAM: 10/15/2024 5:39 PM, LOCATION [facility] INDICATION: K76.9: Liver lesion ADDITIONAL CLINICAL INFORMATION: Ordering Provider Reason For Exam: Liver lesion follow up Additional: 24-year-old female with history of hepatic steatosis and a previous hemangioma in the right hemiliver. COMPARISON: MRI abdomen elastography from 08/06/2021 TECHNIQUE: Noncontrast followed by multiphasic contrast-enhanced MRI examination of was performed using routine multiplanar sequences. MRCP: None. CONTRAST: 10 mL of Eovist was used as intravenous contrast. No procedure related complications seen. IMAGE QUALITY: Average diagnostic quality. Findings: Lower Chest: Lung bases are clear. No pleural effusion seen. Hepatobiliary system Liver morphology: Normal morphology, smooth outline and normal signal intensity. Steatosis: There is mild diffuse hepatic steatosis. Iron: None. Varices: None. Spleen: Normal. Normal splenic signal intensity. Ascites: None. Focal liver observations Within hepatic segment 7 there is a 1.6 cm T2 high signal intensity observation, it shows no significant enhancement in the arterial phase; however, there is interrupted peripheral nodular enhancement in the venous and delayed phases. No contrast accumulation seen in the delayed hepatobiliary phase. Findings could suggest a hemangioma (possibly partially sclerosed hemangioma). Within hepatic segment 5 there is an approximately 1.2 cm arterially enhancing observations, which shows persistent faint enhancement in the venous phase and nonenhancement in the delayed hepatobiliary phase images (image 9 series 56, 60 series 11 and 56 series 28), likely a flash filling hemangioma. Similar lesions are noted in the segment 5 measures 1.4 cm (image 56 series 9) and 3 of the left lobe measures 1 cm (image 32 series 9), likely small flash filling hemangiomas (however, not well depicted in the other sequences) or vascular shunts. Hepatic vasculature Portal and hepatic veins: Patent. Arterial anatomy: Conventional. Biliary system: Gallbladder: Normal. Intrahepatic bile ducts: No intrahepatic biliary dilation. Extrahepatic bile ducts: CBD is normal caliber and course. Common bile duct measures: 4 mm. Ductal stones or obstructing lesions: None. Pancreas: Pancreas is normal morphology and signal intensity. No focal lesions seen. Pancreatic duct: Pancreatic duct is nondilated. Retroperitoneum Adrenals: Unremarkable. Kidneys: Normal bilateral kidneys. Lymph nodes: No significantly enlarged retroperitoneal or mesenteric lymph node enlargement. Blood vessels: Aorta and inferior vena cava are unremarkable. Gastrointestinal: Stomach and visualized small bowel loops and colon are unremarkable. Other findings: None. Procedure Note Silvino Huang MD - 10/16/2024 PROCEDURE: MRI ABDOMEN WWO CONTRAST, DATE/TIME OF EXAM: 10/15/2024 5:39PM, LOCATION [facility] INDICATION: K76.9: Liver lesion ADDITIONAL CLINICAL INFORMATION: Ordering Provider Reason For Exam: Liver lesion follow up Additional: 24-year-old female with history of hepatic steatosis and a previous hemangioma in the right hemiliver. COMPARISON: MRI abdomen elastography from 08/06/2021 TECHNIQUE: Noncontrast followed by multiphasic contrast-enhanced MRI examination of was performed using routine multiplanar sequences. MRCP: None. CONTRAST: 10 mL of Eovist was used as intravenous contrast. No procedure related complications seen. IMAGE QUALITY: Average diagnostic quality. Findings: Lower Chest: Lung bases are clear. No pleural effusion seen. Hepatobiliary system Liver morphology: Normal morphology, smooth outline and normal signal intensity. Steatosis: There is mild diffuse hepatic steatosis. Iron: None. Varices: None. Spleen: Normal. Normal splenic signal intensity. Ascites: None. Focal liver observations Within hepatic segment 7 there is a 1.6 cm T2 high signal intensity observation, it shows no significant enhancement in the arterial phase; however, there is interrupted peripheral nodular enhancement in thevenous and delayed phases. No contrast accumulation seen in the delayed hepatobiliary phase. Findings could suggest a hemangioma (possibly partially sclerosed hemangioma). Within hepatic segment 5 there is an approximately 1.2 cm arterially enhancing observations, which shows persistent faint enhancement in the venous phase and nonenhancement in the delayed hepatobiliary phaseimages (image 9 series 56, 60 series 11 and 56 series 28), likely a flashfilling hemangioma. Similar lesions are noted in the segment 5 measures 1.4 cm (image 56 series 9) and 3 of the left lobe measures 1 cm (image 32series 9), likely small flash filling hemangiomas (however, not well depictedin the other sequences) or vascular shunts. Hepatic vasculature Portal and hepatic veins: Patent. Arterial anatomy: Conventional. Biliary system: Gallbladder: Normal. Intrahepatic bile ducts: No intrahepatic biliary dilation. Extrahepatic bile ducts: CBD is normal caliber and course. Common bileduct measures: 4 mm. Ductal stones or obstructing lesions: None. Pancreas: Pancreas is normal morphology and signal intensity. No focal lesions seen. Pancreatic duct: Pancreatic duct is nondilated. Retroperitoneum Adrenals: Unremarkable. Kidneys: Normal bilateral kidneys. Lymph nodes: No significantly enlarged retroperitoneal or mesentericlymph node enlargement. Blood vessels: Aorta and inferior vena cava are unremarkable. Gastrointestinal: Stomach and visualized small bowel loops and colon are unremarkable. Other findings: None. Impression: 1.Liver: Hepatic steatosis without imaging features of cirrhosis. 2.Hepatic observations: Unchanged benign hemangioma in hepatic segment7. There are 3 arterially enhancing observations in hepatic segment 5likely represent flash filling hemangiomas or vascular shunts. 3.Biliary system: Normal gallbladder and bile ducts. Pancreatic duct is nondilated. > Dictated by Lizeth Ramirez MD, (residential roofer). I, Silvino Huang MD have personally reviewed and interpreted this examination/study. > Interpreting Provider: Silvino Huang MD on 59:47 AM Pinky HOOVER MR ORDERABLES Fin al Result documented in this encounter Visit Diagnoses Diagnosis Liver lesion Other specified disorders of liver documented in this encounter Administered Medications Inactive Administered Medications - up to 3 most recent administrations Medication Order MAR Action Action Date Dose Rate Site gadoxetate disodium (Eovist) injection Intravenous, CONTRAST ONCE, Starting on Sun10/15/24 at 1722, Until Ebonie 10/16/24 at 0145 $ Given - Contrast 10/15/2024 5:23 PM CDT 10 mL documented in this encounter Care Teams Crab Fisherman Relationship Specialty Start Date End Date Radha Higgins APRN-CNP [address] [place] [id number] PCP - General 05/19/21 documented as of this encounter
--- OUTSIDE RECORDS SUMMARY | 2024-10-17 05:49 | XMS_ITS | Encounter Summary ---
Author Organization [facility] Address [address] [facility] [place] [address] Care Team Providers Care Stripping Machine Operator Name Role Phone Gisela, Radha Barnes BANKING SPECIALIST-HERB DIGGER Primary Care Provider Encounter Details Date Type Department Care Team (Late st Contact Info) Description 10/16/2024 Results Follow-Up [facility] [place] [address] [place] [address], [place] [id number] Pinky Alfaro, BANKING SPECIALIST-HERB DIGGER [address] [place] [address] [place] [address] Social History Tobacco Use Types Packs/Day Years Used Date Smoking Tobacco: Never Smokeless Tobacco: Never Alcohol Use Standard Drinks/Week Comments Not Currently 0 (1 standard drink = 0.6 oz pure alcohol) 1-2 times a month prior to stopping 2019 Comments Unknown Sex and Gender Information Value Date Recorded Sex Assigned at Not on file Legal Sex Female 11:04 AM WATERWAY TRAFFIC CHECKER Gender Identity Not on file Sexual Orientation Not on file documented as of this encounter Plan of Treatment Not on file documented as of this encounter Visit Diagnoses Not on filedocumented in this encounter Care Teams Stripping Machine Operator Relationship Specialty Start Date End Date Radha Higgins, BANKING SPECIALIST-HERB DIGGER [address] [place] [id number] PCP - General 05/19/21 documented as of this encounter
--- OUTSIDE RECORDS SUMMARY | 2024-10-17 05:49 | XMS_ITS | Encounter Summary ---
Author Organization [facility] Address [facility] [place] [address] Care Team Providers Care Combination Man Name Role Phone Radha Higgins Primary Care Provider Encounter Details Date Type Department Care Team (Late st Contact Info) Description 11/08/2022 [facility] Message Enc [facility] Orthopedic & Sports Medicine - [place] [address] [address] [facility] Provider apt 11/20/22 Social History Tobacco Use Types Packs/Day Years [...] Orientation Straight 07/18/2021 12 :08 PM CDT documented as of this encounter Functional Status * RETIRED Are you deaf or do you have serious difficulty hearing Answer Date of Assessment Author Status No 04/17/2019 9:00 AM TUNE UP MECHANIC Activ e * RETIRED Are you blind or do you have serious difficulty seeing, even when wearing glasses? Answer Date of Assessment Author Status No 04/17/2019 9:00 AM TUNE UP MECHANIC Activ e * Do you have serious [...] Last Indicated Resolved Time COVID-19 Rule Out 04/05/2023 04/05/2023 04/05/2023 3:38 PM TUNE UP MECHANIC COVID-19 Rule Out 12/25/2023 12/25/2023 12/25/2023 12:58 PM CDT Assessment Noted Time PHQ-9 Depression Total Score: 1 06/01/19 23 9:49 AM TUNE UP MECHANIC documented as of this encounter Care Teams Combination Man Relationship Specialty Start Date End Date Radha Higgins APNP [address] [place] [id number] PCP - General NURSE PRACTITIONER 02/17/19 documented as of this encounter
--- OUTSIDE RECORDS SUMMARY | 2024-10-17 05:49 | XMS_ITS | Clinical Summary ---
Author Organization [facility] Address [address] [place] [address] Care Team Providers Care Pharmacy Technology Instructor Name Role Phone Radha Higgins BENEFITS CLERK-LINUX UNIX SYSTEM ADMINISTRATOR Primary Care Provider Source Comments [facility],non-owned Affiliates and Associated Physician Practices is amultiple site organization consisting of ambulatory clinics and hospital sitesin [place], [place] and [place]. This disclosure is being madepursuant to the Care Everywhere program and may not contain all information available regarding this patient. Last updated 17.[facility] Allergies No known active allergies Medications * Be aware that medications may not be up to date on this document. Alwaysverify current medications with the patient. sertraline (ZOLOFT) 100 MG tablet Take 200 mg by mouth once daily Active propranolol (INDERAL) 10 MG tablet Take 10 mg by mouth every 8 hours Active atomoxetine (STRATTERA) 80 MG capsule Take by mouth every morning Active levothyroxine (SYNTHROID) 25 MCG tablet Take 25 mcg by mouth daily before breakfast Active ferrous sulfate 325 (65 FE) MG tablet Take 325 mg by mouth once daily Active Etonogestrel (NEXPLANON SC) Activ e Active Problems Problem Noted Date Diagnosed Date Nonalcoholic fatty liver disease 07/26/2021 Bipolar 1 disorder, depressed, moderate 04/22/19 19 Hypothyroidism 10/17/2017 Encounters Date Type Department Care Team Description 10/16/2024 Results Follow-Up [facility] [address] [place] [address] Pinky Alfaro, RORY-LINUX UNIX SYSTEM ADMINISTRATOR 10/15/2024 4:30 PM CDT - 10/15/2024 11:59 PM CDT Hospital Encounter [facility] MRI [address] [place] [address] Pinky Alfaro, BENEFITS CLERK-LINUX UNIX SYSTEM ADMINISTRATOR Discharge Disposition: Home or Self Care 10/15/2024 Travel 08/18/2024 Orders Only [facility] [address] [place] [address] Pinky Alfaro, BENEFITS CLERK-LINUX UNIX SYSTEM ADMINISTRATOR Liver lesion from Last 3 Months Immunizations Immunization Administration Dates Next Due DTAP, HISTORIC VACCINE 11/03/2003,1999,1998,06/09,1998 DTAP/IPV 11/03/2003, 0,1998,04/19 HEP A PED/ADULT VACCINE 09/04/2000,02/20/2000 HEP B VACCINE, ADULT 3 DOSE 01/19/2022,0 1998,1998,02/13 HIB-PRP-OMP 3 DOSE 05/16/1999, 9,1998,04/19 HPV VACCINE 04/05/2010,11/30/2009,09/29/2009 INFLUENZA VACCINE 01/21/2018, 7,01/12/2016,01/26,01/08/2013,01/10/2012,12/20/2010 ,01/08/2010,03/12/2009,12/08/2008,11/0 09/2007,01/18/2007,02/07/2006, 5,02/18/2003,03/11/2002,02/03/2002 INFLUENZA VACCINE, QUADR. (F LUZONE; FLULAVAL; FLUARIX; AFLURIA QUADRIVALENT; 6MO+), 0.5 ML (IIV4) 02/23/2023,01/19/2022,03/07/2021,12/10,01/17/2019 MENINGOCOCCAL ACWY (MCV4P) VAC IM 11/17/2015, MMR/VARICELLA 11/03/2003,05/16/1999 PNEUMOCOCCAL PCV7 CONJ, PEDS 11/17/1999,09/09/19 00 ROTAVIRUS, PENTAVALENT 1998,1998,02/1999 TDAP (7yrs+) 03/18/2019,11/27/2009 VARICELLA 01/18/2007,02/14/1999 Family History Medical History Relation Name Comments Asthma Brother Cancer - Skin, Melanoma Father Relation Name Status Comments Brother Father Social History Tobacco Use Types Packs/Day Years Used Date Smoking Tobacco: Never Smokeless Tobacco: Never Tobacco Cessation:Counseling Given: No Alcohol Use Standard Drinks/Week Comments Not Currently 0 (1 standard drink = 0.6 oz pure alcohol) 1-2 times a month prior to stopping 2019 Comments Unknown Sex and Gender Information Value Date Recorded Sex Assigned at Not on file 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 Gender Identity Not on file Sexual Orientation Not on file Last Filed Vital Signs Vital Sign Reading Time Taken Comments Blood Pressure 112/77 07/26/2021 3:23 PM CDT Pulse 85 07/26/2021 3:23 PM CDT Temperature 36.8 C (98.2 F) 07/26/2021 3:23 PM CDT Respiratory Rate 18 07/26/2021 3:23 PM CDT Oxygen Saturation 100% 07/26/2021 3:23 PM CDT Inhaled Oxygen Concentration - - Weight 116.6 kg (257 lb) 07/26/2021 3:23 PM CDT Height 170.2 cm (5' 7) 07/26/2021 3:23 PM CDT Body Mass Index 40.25 07/26/2021 3:23 PM CDT Plan of Treatment Health Maintenance Due Date Last Done Comments COVID-19 VACCINE ( season) 2023 12/07/2020, 11/16/2020 PAP SMEAR 09/01/2024 09/01/2021 INFLUENZA VACCINE (#1) 2024 , 01/19/2022, 03/07/2021, Additional history exists DTAP/TDAP/TD VACCINES (8 - Td or Tdap) 03/18/2029 03/18/2019, 11/27/2009, 11/03/2003, Additional history exists ZOSTER VACCINE (1 of 2) 02/13/2048 HIB VACCINE Completed 05/16/1999, 08/07, 1998, Additional history exists PNEUMOCOCCAL VACCINE Completed 11/17/1999, 09/09/19 HPV VACCINE Completed 04/05/2010, 11/08, 09/29/2009 MENINGOCOCCAL GROUPS A/C/Y/W VACCINE Completed 11/17/2015, 11/27/2009 HIV SCREENING Completed 03/26/2019, 09/26/2018 HEPATITIS C SCREENING Completed 08/11/2021 HEPATITIS B VACCINE Completed 01/19/2022, 1998, 1998, Additional history exists MENINGOCOCCAL (Group B) VACCINE SHARED DECISION-MAKING Aged Out No longer eligible based on patient's age to complete this topic Procedures Procedure Name Priority Date/Time Associated Diagnosis Comments MRI ABDOMEN WWO CONTRAST Routine 10/15/2024 5:38 PM CDT Liver lesion from Last 3 Months Results * MRI Abdomen Wwo Contrast (10/15/2024 [...] nondilated. > Dictated by Lizeth Ramirez MD, (director of residential services). I, Silvino Huang MD have personally reviewed and interpreted this examination/study. > Interpreting Provider: Silvino Huang MD on 10/16/2024 9:47 AM Narrative 10/16/2024 9:47 AM CDT PROCEDURE: MRI ABDOMEN WWO CONTRAST, DATE/TIME OF EXAM: 10/15/2024 5:39 PM, LOCATION [facility] INDICATION: K76.9: Liver lesion ADDITIONAL CLINICAL INFORMATION: [...] CONTRAST, DATE/TIME OF EXAM: 10/15/2024 5:39PM, LOCATION [facility] INDICATION: K76.9: Liver lesion ADDITIONAL CLINICAL INFORMATION: [...] nondilated. > Dictated by Lizeth Ramirez MD, (director of residential services). I, Silvino Huang MD have personally reviewed and interpreted this examination/study. > Interpreting Provider: Silvino Huang MD on :47 AM Pinky Alfaro BENEFITS CLERK-LINUX UNIX SYSTEM ADMINISTRATOR MR ORDERABLES Fin al Result from Last [address] [facility] Care Teams Pharmacy Technology Instructor Relationship Specialty Start Date End Date Radha Higgins, BENEFITS CLERK-LINUX UNIX SYSTEM ADMINISTRATOR [facility] [place] [address] PCP - General 05/19/21
--- OUTSIDE RECORDS SUMMARY | 2024-10-17 05:49 | XMS_ITS | Patient Health Record ---
Author Organization [facility] Address [address] [place], [place] [address] Care Team Providers Care Concrete Stone Fabricator Name Role Phone LOIS CHAUHAN Unavailable [phone] Radha Higgins Unavailable Unavailable Reason For Referral No Information Medications Medication SIG (Take, Route, Frequency, Duration) Notes Start Date End Date Status Medrol Dosepak ORAL Medrol DosepakOr iginal MedicationMedrol Dosepak *Reorder from [facility] for eRx and Interaction Alerts* 12/29/2019 Active Plan Of Treatment No Information Insurance Providers Payer Name Payer Address Payer Phone Subscriber Number Group Number Insured Name Patient Relationship to Insured Coverage Start Date Coverage End Date [employer] [address] [place] [phone] [id number] GEOFF MINAYA Natural Child - Insured has Financial Responsibility [facility] ([facility]) ATTN CLAIMS [address] [place] [address] [id number] DANILO MINAYA Natural Child - Insured has Financial Responsibility
[2024-10-17 06:03] VITALS: BP 142/92; PULSE 81; TEMP 36.2; O2SAT 100
--- OUTSIDE RECORDS SUMMARY | 2024-10-17 07:30 | XMS_ITS | Referral Summary ---
Author Organization [facility] [address] [facility] [place] [address] Care Team Providers Care Card Hand Name Role Phone Radha Higgins Primary Care Provider + Encounters Date Type Department Care Team Description 10/03/2024 Telephone [facility] Obstetrics and Gynecology [facility] [place] [address] Stacey Martinez from Last 3 Months Allergies No known active allergies Medications albuterol HFA (PROVENTIL HFA,VENTOLIN HFA,PROAIR HFA) 90 mcg/actuation inhaler INHALE 2 PUFFS INTO THE LUNGS EVERY 6 HOURS NEEDED FOR WHEEZE Active atomoxetine (STRATTERA) 80 mg capsule Take by mouth broadband installer before breakfast Active clonazePAM (KlonoPIN) 0.5 mg [...] 1 tablet (25 mcg total) by mouth broadband installer before breakfast 3 Active LORazepam (ATIVAN) 0.5 [...] on file 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
--- OUTSIDE RECORDS SUMMARY | 2024-10-17 07:30 | XMS_ITS | Clinical Summary ---
Author Organization [facility] Address [facility] [place] [address] Care Team Providers Care Hand Assembler Name Role Phone Darcy Higgins Primary Care Provider [phone] Allergies No known active allergies Medications ferrous [...] (11/16/2022): Added automatically from request for surgery [id number] Pharyngoesophageal dysphagia 07/27/2022 Overview (07/27/2022): Added automatically from request for surgery [id number] Regurgitation and rechewing 07/27/2022 Overview (07/27/2022): Added automatically from request for surgery [id number] Diarrhea, unspecified type 07/27/2022 Overview (07/27/2022): Added automatically from request for surgery [id number] Generalized pain 07/27/2022 Overview (07/27/2022): Added automatically from request for surgery [id number] COVID-19 03/21/2022 Nonalcoholic fatty liver disease 07/26/2021 [...] Date Resolved Date 37 weeks gestation of ([facility]) 04/17/2019 11/30/2020 Amniotic fluid leaking ([facility]) 04/16/2019 11/30/2020 Encounters Date Type Department Care Team Description 09/19/2024 Results Follow-Up [facility] Family & Internal Medicine [address] [address] Darcy Higgins APNP XR LUMB SPINE 3V 09/18/2024 10:20 AM CDT Telemedicine [facility] Family & Internal [address] [address] Daryc Higgins APNP Low Back Pain (Pt c/o lower back, pelvis, hips (left is worse than right) pain that sometimes shoots down her left leg x 2 weeks. The day this all began pt was doing outdoor lawn cleanup and moving a lot of heavy stuff.) 09/18/2024 Travel 09/03/2024 Telephone [facility] Family Internal [address] [address] Darcy Higgins APNP Pain from Last 3 [...] season) 2023 07/28/2021, 12/07/2020, 11/16/2020 PHQ-2 (Physician [place]) 04/09/2024 11/22/2023 Cervical Cancer Screening Pap Smear [...] 4:06 PM Narrative 09/18/2024 4:07 PM CDT [facility] Family [place] [address] Examination: XR LUMB SPINE 3V Exam time: 09/18/2024 1:26 PM Clinical history: Low back pain Comparison: 01/06/2020 lumbar spine Technique: AP, lateral, and lumbosacral views Findings: There are 5 lumbar-type vertebra. Vertebral body morphology appears unremarkable. Intervertebral disc heights appear normal. No evidence of fracture or subluxation. Sacroiliac joints appear unremarkable. Visualized sacral ala appear intact. Procedure Note Dominic Samuel MD - 09/18/2024 [facility] [place] [address] Examination: XR LUMB SPINE 3V Exam time: [...] URINE (09/18/2024) URINE HCG TEST NEGATIVE NEGATIVE [facility] Internal Control: VALID VALID [facility] URINE SPECIMEN FROM URETHRA / Unknown 09/18/2024 Darcy TREJO URINE ORDERABLES Final Resu lt [address] [address], * Cytopath Cerv/Vag Thin Layer (09/01/2021 12:44 PM CDT) CLINICAL INFORMATION: Information not provided [facility] Clinical Information: 08/07/2021 REGULAR [facility] Date of Last Pap Information not provided [facility] Previous Biopsy? Information not provided [facility] SOURCE (QST) Cervix, Endocervix [facility] STATEMENT OF ADEQUACY: [facility] Comment: Satisfactory for evaluation. Endocervical/transformation zone component present. PAP INTERPRETATION/RESU LTS Negative for intraepithelial lesion or malignancy. [facility] GRAIN PACKER Que [facility] Comment: MVB, CT(ASCP) CT screening location: [place] [address] [address] [place] [address] COMMENT: [facility] Comment: EXPLANATORY NOTE: The Pap is a [...] ORDERABL ES Final Result Performing Organization Address [facility]/ZIP Co de Phone Number [facility] [place] [address] [place] [address] * HEPATITIS C ANTIBODY (08/11/2021 2:00 PM CDT) HEPATITIS C AB NON-REACTI VE NON-REACT MYRON 08/12/2021 9:51 PM CDT [facility] Comment: ANTIBODIES TO HCV NOT DETECTED. DOES NOT EXCLUDE THE POSSIBILITY OF EXPOSURE TO HCV. 08/11/2021 2:00 PM CDT Pinky Alfaro FRAME CATCHER LABORATORY Final Res ult [facility] [address] [place] [address], [id number] from Last 3 Months or Most Recently Relevant to Health Maintenance Insurance [employer] Advance Directives Documents on File Type Date Recorded Patient Director Internal Control Expl anation Guardianship - Temporary 01/10/2022 9:44 AM GUARDIANSHIP * Full Code (Latest Code Status on File) Date Activated Date Inactivated Comments 04/16/2019 7:06 PM 04/19/2019 6:47 PM Care Teams Hand Assembler Relationship Specialty Start Date End Date Darcy Higgins APNP [address] [place] [address] [phone] PCP - General NURSE PRACTITIONER 02/17/19
--- OUTSIDE RECORDS SUMMARY | 2024-10-17 07:30 | XMS_ITS | Clinical Summary ---
Author Organization [facility] Address [address] [facility] [place] [address] Care Team Providers Care Splash Line Operator Name Role Phone Radha Higgins SHIFT ENGINEER-MOLD CARPENTER Primary Care Provider Source Comments [facility],non-owned Affiliates and Associated Physician Practices is amultiple site organization consisting of ambulatory clinics and hospital sitesin [place], [place], [place] and [place]. This disclosure is being madepursuant to the Care Everywhere program and may not contain all information available regarding this patient. Last updated 17.[facility] Allergies No known active allergies Medications * [...] Follow-Up [facility] GI [address] [place] [address] Pinky Alfaro, RORY-MOLD CARPENTER 10/15/2024 4:30 PM CDT - 10/15/2024 11:59 PM CDT Hospital Encounter [facility] MRI [address] [place] [address] Pinky Alfaro, SHIFT ENGINEER-MOLD CARPENTER Discharge Disposition: Home or Self Care 10/15/2024 Travel 08/18/2024 Orders Only [facility] GI [address] [place] [address] Pinky Alfaro, SHIFT ENGINEER-MOLD CARPENTER Liver lesion from Last 3 Months Immunizations [...] on file Legal Sex Female 11:04 AM NURSE INFORMATICIST Gender Identity Not on file Sexual Orientation [...] nondilated. > Dictated by Lizeth Ramirez MD, (radiology administrator). I, Silvino Huang MD have personally reviewed and interpreted this examination/study. > Interpreting Provider: Silvino Huang MD on 10/16/2024 9:47 AM Narrative 10/16/2024 9:47 AM CDT PROCEDURE: MRI ABDOMEN WWO CONTRAST, DATE/TIME OF EXAM: 10/15/2024 5:39 PM, LOCATION [facility] INDICATION: K76.9: Liver lesion ADDITIONAL CLINICAL [...] CONTRAST, DATE/TIME OF EXAM: 10/15/2024 5:39PM, LOCATION [facility] INDICATION: K76.9: Liver lesion ADDITIONAL CLINICAL [...] nondilated. > Dictated by Lizeth Ramirez MD, (radiology administrator). I, Silvino Huang MD have personally reviewed and interpreted this examination/study. > Interpreting Provider: Silvino Huang MD on :47 AM Pinky Alfaro SHIFT ENGINEER-MOLD CARPENTER MR ORDERABLES Fin al Result from Last 3 Months Insurance [facility] Care Teams Splash Line Operator Relationship Specialty Start Date End Date Radha Higgins, SHIFT ENGINEER-MOLD CARPENTER [facility] [place] [address] PCP - General 05/19/21
--- OUTSIDE RECORDS SUMMARY | 2024-10-17 07:30 | XMS_ITS | Encounter Summary ---
Author Organization [facility] Address [facility] [place] [address] Care Team Providers Care Ship Superintendent Name Role Phone Radha Higgins Primary Care Provider Encounter Details Date Type Department Care Team (Late st Contact Info) Description 06/28/2022 [employer] Message Enc [facility] Family & Internal Medicine [address] [address] Alba Raymond NP Results Social [...] Assessment Author Status No 04/17/2019 9:00 AM SOFTWARE DEVELOPMENT COORDINATOR Activ e * RETIRED Are you blind or do you have serious difficulty seeing, even when wearing glasses? Answer Date of Assessment Author Status No 04/17/2019 9:00 AM SOFTWARE DEVELOPMENT COORDINATOR Activ e * Do you have serious [...] Rule Out 04/05/2023 04/05/2023 04/05/2023 3:38 PM SOFTWARE DEVELOPMENT COORDINATOR COVID-19 Rule Out 12/25/2023 12/25/2023 12/25/2023 12:58 PM CDT Assessment Noted Time PHQ-9 Depression Total Score: 1 06/01/19 9:49 AM SOFTWARE DEVELOPMENT COORDINATOR documented as of this encounter Care Teams Ship Superintendent Relationship Specialty Start Date End Date Gisela, Radha H, APNP [address] [place] [id number] PCP - General NURSE PRACTITIONER 02/17/19 documented as of this encounter
--- OUTSIDE RECORDS SUMMARY | 2024-10-17 07:30 | XMS_ITS | Clinical Summary ---
Author Organization [facility] [address] [place] Address [address] [place] [address] Care Team Providers Care Motor Brakeman Name Role Phone Radha Higgins Primary Care Provider + Allergies No known active allergies Medications albuterol HFA (PROVENTIL HFA,VENTOLIN HFA,PROAIR HFA) 90 mcg/actuation inhaler INHALE 2 PUFFS INTO THE LUNGS EVERY 6 HOURS NEEDED FOR WHEEZE Active atomoxetine (STRATTERA) 80 mg capsule Take by mouth transformation specialist before breakfast Active clonazePAM (KlonoPIN) 0.5 mg [...] 1 tablet (25 mcg total) by mouth transformation specialist before breakfast 3 Active LORazepam (ATIVAN) 0.5 [...] Type Department Care Team Description 10/03/[address] [facility] Obstetrics and Gynecology [address] [place] [address] Stacey Martinez from Last 3 Months Social [...] on file Legal Sex Female 11:00 PM THERAPEUTIC RECREATION SPECIALIST Gender Identity Not on file Sexual Orientation [...] , 1998, 1998, Additional history exists Insurance [facility] [place] [address] [place] Care Teams Motor Brakeman Relationship Specialty Start Date End Date Radha Higgins PA [address] [place] [id number] PCP - General Nurse Practitioner 06/10/23
--- OUTSIDE RECORDS SUMMARY | 2024-10-17 07:30 | XMS_ITS | Encounter Summary ---
Author Organization [facility] Address [facility] [place] [address] Care Team Providers Care Strap Cutting Machine Operator Name Role Phone Radha Higgins Primary Care Provider Encounter Details Date Type Department Care Team (Late st Contact Info) Description 11/08/2022 [employer] Message Enc [facility] Orthopedic & Sports Medicine - [place] [address] [facility] Provider apt 11/20/22 Social History Tobacco Use [...] Assessment Author Status No 04/17/2019 9:00 AM BRIM CURLER Activ e * RETIRED Are you blind or do you have serious difficulty seeing, even when wearing glasses? Answer Date of Assessment Author Status No 04/17/2019 9:00 AM BRIM CURLER Activ e * Do you have serious [...] Rule Out 04/05/2023 04/05/2023 04/05/2023 3:38 PM BRIM CURLER COVID-19 Rule Out 12/25/2023 12/25/2023 12/25/2023 12:58 PM CDT Assessment Noted Time PHQ-9 Depression Total Score: 1 06/01/19 23 9:49 AM BRIM CURLER documented as of this encounter Care Teams Strap Cutting Machine Operator Relationship Specialty Start Date End Date Radha Higgins APNP [address] [place] [id number] PCP - General NURSE PRACTITIONER 02/17/19 documented as of this encounter
--- OUTSIDE RECORDS SUMMARY | 2024-10-17 07:30 | XMS_ITS | Encounter Summary ---
Author Organization [facility] Address [address] [facility] [place] [address] Care Team Providers Care Environmental Research Scientist Name Role Phone Gisela, Radha Barnes SPORTS MEDIA-ALUMINUM SHINGLE ROOFER Primary Care Provider Encounter Details Date Type Department Care Team (Late st Contact Info) Description 10/16/2024 Results Follow-Up [facility] [place] [address] [place] [address], [place] [phone] Pinky Alfaro, SPORTS MEDIA-ALUMINUM SHINGLE ROOFER [address] [place] [address] [place] [address] Social History Tobacco Use Types Packs/Day Years Used Date Smoking Tobacco: Never Smokeless Tobacco: Never Alcohol Use Standard Drinks/Week Comments Not Currently 0 (1 standard drink = 0.6 oz pure alcohol) 1-2 times a month prior to stopping 2019 Comments Unknown Sex and Gender Information Value Date Recorded Sex Assigned at Not on file Legal Sex Female 11:04 AM GRAPHIC DESIGN INTERN Gender Identity Not on file Sexual Orientation Not on file documented as of this encounter Plan of Treatment Not on file documented as of this encounter Visit Diagnoses Not on filedocumented in this encounter Care Teams Environmental Research Scientist Relationship Specialty Start Date End Date Radha Higgins, SPORTS MEDIA-ALUMINUM SHINGLE ROOFER [address] [place] [address] PCP - General 05/19/21 documented as of this encounter
--- OUTSIDE RECORDS SUMMARY | 2024-10-17 07:30 | XMS_ITS | Encounter Summary ---
Author Organization [facility] Address [address] [address] Care Team Providers Care Riverboat Master Name Role Phone Radha Higgins APRN-METHANE GAS COLLECTION SYSTEM OPERATOR Primary Care Provider Reason for Visit * Radiology Services (Routine) - Closed Specialty Diagnoses / Procedures Referred By Shiva t Referred To Contact MRI Diagnoses Liver lesion Procedures MRI Abdomen Wwo Contrast Pinky Alfaro, TALENT ACQUISITION PARTNER-METHANE GAS COLLECTION SYSTEM OPERATOR [address] [facility] [address] Phone: tel: fax: Referral ID Status Reason Start Date Expiration Date Visits Re quested Visits Authorized [id number] Closed 10/03/2024 04/01/2025 1 1 Encounter Details Date Type Department Care Team (Late st Contact Info) Description 10/15/2024 4:30 PM CDT - 10/15/2024 11:59 PM CDT Hospital Encounter [facility] MRI [address] [place] [address] Pinky Alfaro, TALENT ACQUISITION PARTNER-METHANE GAS COLLECTION SYSTEM OPERATOR [address] [facility] [place] [id number] Discharge Disposition: Home or Self Care Social [...] on file Legal Sex Female 11:04 AM HEAD WRESTLING COACH Gender Identity Not on file Sexual Orientation [...] nondilated. > Dictated by Lizeth Ramirez MD, (president consumer electronics company). I, Silvino Huang MD have personally reviewed and interpreted this examination/study. > Interpreting Provider: Silvino Huang MD on 10/16/2024 9:47 AM Narrative 10/16/2024 9:47 AM CDT PROCEDURE: MRI ABDOMEN WWO CONTRAST, DATE/TIME OF EXAM: 10/15/2024 5:39 PM, LOCATION [facility] INDICATION: K76.9: Liver lesion ADDITIONAL CLINICAL [...] DATE/TIME OF EXAM: 10/15/2024 5:39PM, LOCATION [facility] INDICATION: K76.9: Liver lesion ADDITIONAL CLINICAL [...] nondilated. > Dictated by Lizeth Ramirez MD, (president consumer [employer]). I, Silvino Huang MD have personally reviewed and interpreted this examination/study. > Interpreting Provider: Silvino Haung MD on 59:47 AM Pinky [facility] MR [...] mL documented in this encounter Care Teams Riverboat Master Relationship Specialty Start Date End Date Radha Higgins APRN-CNP [address] [place] [id number] PCP - General 05/19/21 documented as of this encounter
[2024-10-17] MEDS: KETOROLAC 30 MG/ML VIAL (*BKC) IV PUSH (08:03)
[2024-10-17] MEDS: METOCLOPRAMIDE HCL INJ 10 MG/2 ML VIAL IV PUSH (08:03)
[2024-10-17] MEDS: SODIUM CHLORIDE 0.9% IV 1,000 ML 999 ML IV CONT (08:04)
[2024-10-17 08:15] LABS: BEDSIDEPREGUCG Negative (Negative)
[2024-10-17 08:15] LABS: Hematocrit 40.4 % (37.0-47.0); Hemoglobin 13.0 g/dL (12.0-15.0); Immature Granulocyte Percent A 0.3 % (0-0.5); Lymphocytes Absolute Auto 3.65 K/mm3 (0.9-3.2); Mean Corpuscular HGB Conc 32.2 g/dl (32-36); Mean Corpuscular Hemoglobin 26.6 pg (26-34); Mean Corpuscular Volume 82.8 fl (80-100); Nucleated Red Blood Cells Absolute Auto 0.000 K/mm3 (0.0-0.012); Nucleated Red Blood Cells Perc 0.0 % (0.0-0.2); Platelet Count Result 258 k/mm3 (150-375); Red Blood Count 4.88 M/mm3 (4.2-5.4); White Blood Count 10.2 K/mm3 (4.5-10.0)
[2024-10-17 08:27] LABS: Add Urine Microscopic? NO; Appearance Urine Clear (Clear); Glucose Urine UA Negative (Negative); Leukocyte Esterase Ur Negative LEU/UL (Negative); Nitrate Urine Negative (Negative); Specific Grav Ur 1.031 (1.001-1.035)
[2024-10-17 08:35] LABS: Alanine Aminotransferase 14 U/L (6-35); Albumin Level 4.1 g/dL (3.5-5.1); Alkaline Phosphatase 62 U/L (38-126); Anion Gap 10 mmol/L (4-12); Aspartate Amino Transferase 25 U/L (14-36); Bilirubin,Total 0.4 mg/dL (0.2-1.3); Blood Urea Nitrogen 15 mg/dL (7-17); Calcium 9.0 mg/dL (8.4-10.2); Carbon Dioxide 24 mmol/L (22-30); Chloride 107 mmol/L (98-107); Estimated CRCL calculation 168 ml/min; Estimated Glomerular Filt Rate > 60; Glucose 110 mg/dL (65-110); Potassium 3.9 mmol/L (3.4-5.0); Sodium 141 mmol/L (137-145); Total Protein 7.2 g/dL (6.3-8.2)
--- NOTE | 2024-10-17 09:21 | ED_ITS ---
HPI - General Adult General Chief complaint: Headache Stated complaint: headache x 1 week Time Seen by Provider: 10/17/24 07:12 History of Present Illness HPI narrative: Patient is a 24-year-old female who presents ER with multiple complaints. First complaint is pelvic pain. Ongoing over last week. Associated with irregular. The. Thinks she may have endometriosis and sees highballer. No vaginal discharge. No aggravating or alleviating factors. Patient also reports she has been having throbbing headache. No fevers or chills or sweats. Related Data Home Medications ?Medication ?Instructions ?Recorded ?Confirmed ?Last Taken ?Type levothyroxine 25 mcg tablet 25 mcg PO DAILY 05/06/22 12/26/23 12/26/23 History pantoprazole 40 mg tablet,delayed 40 mg PO DAILY 05/06/22 12/26/23 12/26/23 History release clonazepam 0.5 mg tablet 0.5 mg PO QHS 12/26/23 12/26/23 12/25/23 History ferrous sulfate 325 mg PO DAILY 12/26/23 12/26/23 Unknown History sertraline 50 mg tablet 50 mg PO QAM 12/26/23 12/26/23 12/25/23 History Allergies Allergy/AdvReac Type Severity Reaction Status Date / Time No Known Allergies Allergy Verified 10/17/24 07:19 Review of Systems 2 Review of Systems: All systems reviewed & are unremarkable except as noted in HPI and below Constitutional: Constitutional: Reports no additional constitutional complaints ENT: Reports system reviewed and no additional complaints, except as documented Cardiovascular: Cardiovascular: Reports no additional cardiovascular complaints Respiratory: Respiratory: Reports no additional respiratory complaints Musculoskeletal: Musculoskeletal: Reports no additional musculoskeletal complaints [facility] Past Medical History Medical History (Updated 10/17/24 @ 10:26 by Zander Moya MD) Healthy female adult Surgical History Surgical History (Updated 10/17/24 @ 09:23 by Zander Moya MD) No pertinent past surgical history Social History Social History Smoking status: Never smoker Alcohol intake: never Substance use: never Do You Feel Safe in your Home?: Yes Lack of Transportation: No Lack of Food: Never True Current Housing: I Have Housing Concerned About Future Housing: No Difficulty Paying Gas/Electric Bills: No Difficulty Paying for Meds: No Currently Unemployed: No Education: High School Diploma/GED Difficulty w/ Childcare or Family Care: No Spiritual care concerns: No Exam 2 Narrative: GENERAL: Well-appearing, well-nourished, and in no acute distress. HEAD: Normocephalic, atraumatic. ENT: Mucous membranes moist. CHEST: Clear to auscultation. No respiratory distress. HEART: Regular rate and rhythm. Normal peripheral pulses. ABDOMEN: Soft, nontender, nondistended. EXTREMITIES: Normal range of motion. No edema. SKIN: Warm, dry, no rash. NEURO: Alert and oriented x3. PSYCH: Normal mood and affect. Course Course Emergency Course: Headache resolved with migraine cocktail. Informed of imaging and lab results. Appropriate for outpatient follow-up for repeat ultrasound. Patient verbalized understanding. Discharge. Vital Signs Vital signs: Vital Signs Temperature 97.1 F L 10/17/24 06:03 Pulse Rate 81 10/17/24 06:03 Blood Pressure 142/92 H 10/17/24 06:03 Pulse Oximetry 100 10/17/24 06:03 Oxygen Delivery Room Air 10/17/24 06:03 Temperature 97.1 F L 10/17/24 06:03 Pulse Rate 81 10/17/24 06:03 Blood Pressure 142/92 H 10/17/24 06:03 Pulse Oximetry 100 10/17/24 06:03 Oxygen Delivery Room Air 10/17/24 06:03 Medical Decision Making Vital Signs Vital Signs: Vital Signs Temperature 97.1 F L 10/17/24 06:03 Pulse Rate 81 10/17/24 06:03 Blood Pressure 142/92 H 10/17/24 06:03 Pulse Oximetry 100 10/17/24 06:03 Oxygen Delivery Room Air 10/17/24 06:03 Temperature 97.1 F L 10/17/24 06:03 Pulse Rate 81 10/17/24 06:03 Blood Pressure 142/92 H 10/17/24 06:03 Pulse Oximetry 100 10/17/24 06:03 Oxygen Delivery Room Air 10/17/24 06:03 Lab Data 10/17/24 08:09 10/17/24 08:08 Labs: Lab Results 10/17/24 10/17/24 10/17/24 Range/Units 08:08 08:09 08:10 WBC 10.2 H (4.5-10.0) K/mm3 RBC 4.88 (4.2-5.4) M/mm3 Hgb 13.0 (12.0-15.0) g/dL Hct 40.4 (37.0-47.0) % MCV 82.8 (80-100) fl MCH 26.6 (26-34) pg MCHC 32.2 (32-36) g/dl RDW 13.7 (11.5-14.5) % Plt Count 258 (150-375) k/mm3 MPV 10.8 H (7.4-10.4) fl Immature Gran % (Auto) 0.3 (0-0.5) % Neut % (Auto) 53.7 (45.5-73.1) % Lymph % (Auto) 35.9 (18.3-44.2) % Churchill % (Auto) 7.0 (2.6-8.5) % Eos % (Auto) 2.4 (0-4.4) % Baso % (Auto) 0.7 (0.2-1.2) % Lymph # (Auto) 3.65 H (0.9-3.2) K/mm3 Churchill # (Auto) 0.7 H (0.1-0.6) K/mm3 Eos # (Auto) 0.2 (0-0.3) K/mm3 Baso # (Auto) 0.1 (0.0-0.1) K/mm3 Abs Immat Gran (auto) 0.03 (0.00-0.031) K/mm3 Absolute Neuts (auto) 5.5 (1.3-6.7) K/mm3 Absolute Nucleated RBC 0.000 (0.0-0.012) K/mm3 Nucleated RBC % 0.0 (0.0-0.2) % Sodium 141 (137-145) mmol/L Potassium 3.9 (3.4-5.0) mmol/L Chloride 107 (98-107) mmol/L Carbon Dioxide 24 (22-30) mmol/L Anion Gap 10 (4-12) mmol/L BUN 15 D (7-17) mg/dL Creatinine 0.58 L (0.7-1.0) mg/dL Estim Creat Clear Calc 168 ml/min Estimated GFR > 60 (59 - ) Glucose 110 (65-110) mg/dL Calcium 9.0 (8.4-10.2) mg/dL Total Bilirubin 0.4 (0.2-1.3) mg/dL AST 25 (14-36) U/L ALT 14 (6-35) U/L Alkaline Phosphatase 62 (38-126) U/L Total Protein 7.2 (6.3-8.2) g/dL Albumin 4.1 (3.5-5.1) g/dL Urine Color Yellow (Yellow) Urine Appearance Clear (Clear) Urine pH 6.0 (5.0-9.0) Ur Specific [place] 1.031 (1.001-1.035) Urine Protein Negative (Negative) mg/dL Urine Glucose (UA) Negative (Negative) mg/dL Urine Ketones Negative (Negative) mg/dL Ur Blood (Man) Negative (Negative) Urine Nitrate Negative (Negative) Urine Bilirubin Negative (Negative) Urine Urobilinogen 1.0 (<2.0) mg/dL Leukocyte Esterase Rfl Negative (Negative) CARMEN/UL POC Urine HCG, Qual Negative (Negative) Imaging Data Radiologist's impression: ITS Impressions Pelvic/Transvag US 10/17/24 09:15 IMPRESSION: Despite prolonged interrogation, the left ovary was not visualized. The right ovary is unremarkable. 5 mm avascular irregular focus of decreased echogenicity within the endometrial complex for which short-term follow-up is recommended. Discharge Plan Discharge Clinical Impression: Headache Patient Disposition: Home Condition: Stable Instructions: Acute Headache (ED) Additional Instructions: Try to stay well hydrated at home. Please return to the emergency department if you develop worsening of your headache or a new headache which is severe, associated with vision changes, associated with neck stiffness or fever, or if it is different from any other headache that you have had before. Return to the emergency department if you develop numbness, weakness or tingling or problems with coordination, or if you develop severe nausea and vomiting and are unable to keep down fluids at home. An ultrasound showed a 5 mm avascular area by the endometrium. You need a follow-up ultrasound to ensure that this is only debris and not a endometrial polyp. Patient Language: Chadian Prescriptions: New naproxen 375 mg tablet 375 mg PO BID Qty: 14 0RF No Action levothyroxine 25 mcg tablet 25 mcg PO DAILY pantoprazole 40 mg tablet,delayed release (DR/EC) 40 mg PO DAILY clonazepam 0.5 mg tablet 0.5 mg PO QHS sertraline 50 mg tablet 50 mg PO QAM ferrous sulfate 325 mg PO DAILY levofloxacin 750 mg tablet 750 mg PO DAILY 5 Days Qty: 5 0RF metronidazole 500 mg tablet 500 mg PO Q8H 5 Days Qty: 15 0RF Follow-up/Referrals: Gisela,BALAJI Garcia [Primary Care Provider] - 1 Week
[2024-10-17 10:46] VITALS: BP 130/76; PULSE 84; RESP 16; O2SAT 99
== END 2024-10-17 10:47 | disposition home or self-care (01) ==
PROVIDERS: Emergency Provider Emergency Medicine; PCP Registered Nurse
DX: R51.9 Headache, unspecified (principal); R93.89 Abnormal findings on diagnostic imaging of other specified body structures
CPT/HCPCS: 36415; 76830; 76856; 80053; 81003; 81025; 85025; 96361; 96374; 96375; 99284; J1200; J1885; J2765; J7030

== ENCOUNTER 2025-04-08 21:06 | Emergency (ER) | payer OTHER, SELFPAY ==
--- OUTSIDE RECORDS SUMMARY | 2024-08-20 03:30 | XMS_ITS ---
Author Organization [facility] [employer] ([address]) Address [address] [place] [address] Care Team Providers Care Hydraulic Hammer Operator Name Role Phone Radha Higgins Primary Care Provider Jennifer Mariano Unavailable [phone] REASON FOR VISIT ARC follow-up Medications Medication SIG (Take, Route, Frequency, Duration) Notes Start Date End Date Status Sertraline HCl 50 MG Oral; Duration: 30 Days Active Famotidine 20 MG Oral; Duration: 30 Days Active clonazePAM 0.5 MG 1 tablet Orally Once a day Active Levothyroxine Sodium 25 MCG Oral; Duration: 90 Days Active Vitamin E 33.5 MG (50 UNIT) as directed Orally Active NexIUM 40 MG 1 capsule 1/2 to 1 h our before morning meal Orally Once a day Active Albuterol Sulfate HFA 108 (90 Base) MCG/ACT 2 puffs as needed Inhalation every 4 hrs; Duration: 30 days Active DHA 200 MG 1 capsule with a preet l Orally Once a day Active Budesonide-Formoterol Fumarate 80-4.5 MCG/ACT 2 puffs Inhalation Twice a day; Duration: 30 days Active Social History Sex Assigned At : Social History Observation Description Sex Assigned At Female Encounters Encounter Location Date Provider Diagnosis [facility] [address] [place] [address] 08/20/2024 Jennifer Segovia Plan Of Treatment No Information Progress Notes * Brielle MINAYADaOB: 8 (25 yo F)Acc No.[id number]:08/20/2024 Progress Notes Patient: Messi GALLARDOKAILEE Mell Provider: Gurinder Segovia MD :2000 A ge:24 Y S ex:Female Date:08/20/2024 Address:[facility] [address], [place], [id number] Pcp:Radha Higgins Subjective: * Chief Complaints: * 1 . ARC follow-up. * Medical History: * Medications: T aking Albuterol Sulfate HFA 108 (90 Base) MCG/ACT Aerosol Solution 2 puffs as needed Inhalation every 4 hrs , Taking Budesonide-Formoterol Fumarate 80-4.5 MCG/ACT Aerosol 2 puffs Inhalation Twice a day , Taking DHA 200 MG Capsule 1 capsule with a meal Orally Once a day , Taking NexIUM 40 MG Capsule Delayed Release 1 capsule 1/2 to 1 hour before morning meal Orally Once a day , Taking clonazePAM 0.5 MG Tablet 1 tablet Orally Once a day , Taking Vitamin E 33.5 MG (50 UNIT) Capsule as directed Orally , Taking Levothyroxine Sodium 25 MCG Tablet Oral , Taking Famotidine 20 MG Tablet Oral , Taking Sertraline HCl 50 MG Tablet Oral Objective: * Vitals: Assessment: Plan: * Treatment: * Billing Information: * Visit Code: * Procedure Codes: * Electronic signature of Elba Segovia MD on 04/08/2025 at 09:08 PM 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
--- NOTE | ~2025-04-08 | XR_ITS ---
EXAMINATION: XR foot LT min 3V DATE: 04/08/2025 21:30 INDICATION: Left foot injury TECHNIQUE: Dorsoplantar, oblique and lateral views of the left foot were obtained. COMPARISON: None. FINDINGS: 30 degrees lateral angulation of an oblique otherwise nondisplaced extra articular fracture at the distal metadiaphyseal region of the fifth proximal phalanx. Bone alignment is otherwise normal. No other fractures identified. Minimal to mild osteoarthritis at a few of the tarsal metatarsal and interpha langeal joints. IMPRESSION: 1. 30 degree lateral angulation of extra articular fracture of the left fifth proximal phalanx. Reviewed, dictated and finalized at location A. GETTER IMPRESSION: 1. 30 degree lateral angulation of extra articular fracture of the left fifth p roximal phalanx.
--- OUTSIDE RECORDS SUMMARY | 2025-04-08 21:09 | XMS_ITS | Patient Health Record ---
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 Adjunct Name Role Phone LOIS CHAUHAN Unavailable [phone] Radha Higgins Unavailable Unavailable Reason For Referral No Information Medications Medication SIG (Take, Route, Frequency, Duration) Notes Start Date End Date Status Medrol Dosepak ORAL Medrol DosepakOr iginal MedicationMedrol Dosepak *Reorder from dermSearch for eRx and Interaction Alerts* 12/29/2019 Active Social History Social History Additional Details Category Social Info Options Details Migrated Social History Migrated Social History Smoking Status : Never used tobacco , History of tobacco use : Plan Of Treatment No Information Insurance Providers Payer Name Payer Address Payer Phone Subscriber Number Group Number Insured Name Patient Relationship to Insured Coverage Start Date Coverage End Date [employer] [address] [place] [phone] [id number] GEOFF MINAYA Natural Child - Insured has Financial Responsibility [facility] ATTN CLAIMS [address] [place] [address] [id number] DANILO MINAYA Natural Child - Insured has Financial Responsibility
--- OUTSIDE RECORDS SUMMARY | 2025-04-08 21:09 | XMS_ITS | Clinical Summary ---
Author Organization [facility] Address [address] [place] [address] Care Team Providers Care Caseworker Intake Name Role Phone Darcy Higgins Primary Care Provider Allergies No known active allergies Medications ferrous sulfate, 65 mg elemental, 325 (65 FE) MG tabletIndication s:Iron deficiency anemia, unspecified iron deficiency anemia type Take 1 tablet (325 mg total) by mouth daily with breakfast. 30 tablet 5 01/12/2020 Active esomeprazole (NEXIUM) 20 MG capsuleIndicatio ns:Gastroesophag eal reflux disease without esophagitis,Naus ea Take 1 capsule (20 mg total) by mouth every morning before breakfast. 30 capsule 2 11/16/2022 Active EPINEPHrine 0.3 MG/0.3ML injectionIndicat ions:Allergic reaction, initial encounter Inject 0.3 mLs (0.3 mg total) into the muscle as needed for Anaphylaxis. 1 each 1 08/28/2023 Active famotidine (PEPCID) 20 MG tabletIndication s:Gastroesophage al reflux disease without esophagitis Take 1 tablet (20 mg total) by mouth 2 (two) times daily. 60 tablet 5 11/23/2023 Active levothyroxine (SYNTHROID) 25 MCG tabletIndication s:Elevated TSH TAKE 1 TABLET(25 MCG) BY MOUTH EVERY MORNING 90 tablet 1 01/28/2024 Active methocarbamol (ROBAXIN) 750 MG TabIndications:M uscle spasms of neck Take 2 tablets (1,500 mg total) by mouth 3 (three) times daily as needed. Prn muscle spasms 60 tablet 01/30/2024 Active Active Problems Problem Noted Date Diagnosed Date Irregular bowel habits 11/16/2022 Overview (11/16/2022): Added automatically from request for surgery [id number] Pharyngoesophageal dysphagia 07/27/2022 Overview (07/27/2022): Added automatically from request for surgery [id number] Regurgitation and rechewing 07/27/2022 Overview (07/27/2022): Added automatically from request for surgery [id number] Diarrhea, unspecified type 07/27/2022 Overview (07/27/2022): Added automatically from request for surgery [id number] Generalized pain 07/27/2022 Overview (07/27/2022): Added automatically from request for surgery [id number] COVID-19 03/21/2022 Nonalcoholic fatty liver disease 07/26/2021 Panic disorder with [place], mild agoraphobic avoidance and moderate panic attacks 04/22/2018 Bipolar 1 disorder, depressed, moderate 04/22/19 19 Vasovagal near syncope 02/27/2018 Abdominal wall pain 10/17/2017 Hematuria 10/17/2017 Hypothyroidism 10/17/2017 Anemia 11/23/2016 Elevated TSH 11/23/2016 Overweight 11/23/2016 GERD (gastroesophageal reflux disease) 7 Menorrhagia 11/22/2015 Resolved Problems Problem Noted Date Diagnosed Date Resolved Date 37 weeks gestation of 04/17/2019 11/30/2020 Amniotic fluid leaking 04/16/201911/30 Encounters Date Type Department Care Team Description 02/20/2025 Results Follow-Up [facility] Family & Internal Medicine [address] [address] Darcy Higgins APNP FERRITIN, IRON SAT PANEL (IRON,IBC,%SAT) 02/19/2025 1:00 PM [facility] Laboratory Only [address] [address] Darcy Higgins APNP 02/19/2025 - 02/19/2025 11:59 PM [facility] [employer] Hospital Encounter [facility] [place] [address] Darcy Higgins APNP Discharge Disposition: Home or Self Care (Routine Discharge) 02/19/2025 Travel 02/17/[address] [address] Darcy Higgins APNP Allied Health Visit 02/17/[address] [address] Darcy Higgins APNP Information 02/04/[address] [address] Darcy Higgins APNP Lab Order 01/22/2025 8:40 AM CDT Office Visit [address] [address] Darcy Higgins APNP Gi Problem (Pt c/o bloating and tightness in epigastric area x 5-6 days. She reports usual, regular bowel movements. She did vomit last night about 3 hours after eating.) 01/22/2025 Results Follow-Up [address] [address] Darcy Higgins APNP XR ABD KUB, TEST URINE, THYROXINE, FREE (FT4), Additional followed-up results: 4 01/22/2025 Travel 01/13/[address] [address] Darcy Higgins, NEIL Advice from Last 3 Months Immunizations Immunization Administration Dates Next Due Dtap (Generic) 11/03/2003, 0,1998,06/09,1998 Fluzone (IIV3, Trivalent, 0. 5 ML Prefilled Syringe) 01/22/2025 Fluzone 6 Months+ Quad (0.5 mL Prefilled Syringe) 02/23/2023,01/19/2022,03/07/2021,12/10,01/17/2019 HPV 04/05/2010,11/30/2009,09/29/2009 Hepatitis A (Generic) 09/04/2000,02/20/2000 Hepatitis B (Generic: Adult) 1998,03/16/19 98,1998 Hepatitis B(Engerix B Adult) 01/19/2022 Hib Vaccine, Prp-Omp 05/16/1999,08/16/18 99,1998,04/19 Influenza (Generic) 01/05/2017, 5,01/08/2013,01/09,12/20/2010,01/08/2010,03/12/2009 ,12/08/2008,02/13/2008,01/18/2007,04/2005,01/23/2005,02/18/2003, 2,02/03/2002 Influenza Adult (Generic) 01/21/2018,01/12/2016 MMR (Generic) 11/03/2003,05/16/1999 Meningococcal Vac A,C,Y,W-135 Sc 11/17/2015,082 04/2009 PFIZER COVID-19 (ORIGINAL FO RMULATION, PURPLE CAP) [...] Date Recorded Patient Health Questionnaire-2 Score 1 01/22/2025 Comments No Sex and Gender Information Value Date Recorded Sex Assigned at Female 12/01/2024 11:27 AM CDT Legal Sex Female 7:02 PM CDT Gender Identity Female 07/18/2021 12:08 PM CDT Sexual Orientation Straight 07/18/2021 12 :08 PM CDT Last Filed Vital Signs Vital Sign Reading Time Taken Comments Blood Pressure 108/78 01/22/2025 8:54 AM CDT Pulse 82 01/22/2025 8:54 AM CDT Temperature 36.6 C (97.9 F) 01/22/2025 8:54 AM CDT Respiratory Rate 16 01/22/2025 8:54 AM CDT Oxygen Saturation 98% 01/22/2025 8:54 AM CDT Inhaled Oxygen Concentration - - Weight 122.3 kg (269 lb 9.6 oz) 01/22/2025 8:54 AM CDT Height 170.2 cm (5' 7) 01/22/2025 8:54 AM CDT Body Mass Index 42.23 01/22/2025 8:54 AM CDT Plan of Treatment Health Maintenance Due Date Last Done Comments Annual Physical 04/20/2023 04/20/2022 Cervical Cancer Screening Pap Smear (Age 21 to 29) Every 3 Years 09/01/2024 09/01/2021, 09/01/2021 Cervical Cancer Screening 09/01/2024 COVID-19 Vaccine ( season) 2024 07/28/2021, 12/07/2020, 11/16/2020 DTaP, Tdap and Td Vaccines (8 - Td or Tdap) 03/18/2029 03/18/2019, 11/27/2009, 11/03/2003, Additional history exists Pneumococcal Vaccine: Pediatrics (0 to 5 Years) and At-Risk Patients (6 to 49 Years) Aged Out 11/17/1999, 09/09/1999 No longer eligibl e based on patient's age to complete this topic Hepatitis A Vaccines Completed 09/04/2000, 02/20/20 00 HPV Vaccines Completed 04/05/2010, 11/08, 09/29/2009 Meningococcal Vaccine Aged Out 11/17/2015, 010 No longer eligible based on patient's age to complete this topic Hepatitis C Completed 08/11/2021 Hepatitis B Vaccines Completed 01/19/2022, 1998, 1998, Additional history exists Influenza Adult Completed 01/22/2025, 02/07, 01/19/2022, Additional history exists PHQ-2 (Physician [place]) Completed 01/22/2025 Meningococcal B Vaccine Aged Out No l onger eligible based on patient's age to complete this topic RSV Immunizations Under 20 Months Aged Out No longer eligible based on patient's age to complete this topic Procedures Procedure Name Priority Date/Time Associated Diagnosis Comments COLLECTION VENOUS BLOOD VENIPUNCTURE Routine 02/19/2025 1:02 PM [facility] [employer] Abdominal bloating Vomiting without nausea, unspecified vomiting type IRON SAT PANEL (IRON,IBC,%SAT) Routine 02/19/2025 1:02 PM [employer] Abdominal bloating Vomiting without nausea, unspecified vomiting type FERRITIN Routine 02/19/2025 1:02 PM [employer] Abdominal bloating Vomiting without nausea, unspecified vomiting type CBC W/DIFF AUTOMATED Routine 01/22/2025 10:46 AM CDT Abdominal bloating Vomiting without nausea, unspecified vomiting type COMPREHENSIVE METABOLIC PANEL Routine 01/22/2025 10:46 AM CDT Abdominal bloating Vomiting without nausea, unspecified vomiting type LIPASE Routine 01/22/2025 10:46 AM CDT Abdominal bloating Vomiting without nausea, unspecified vomiting type THYROID STIM HORMONE TSH Routine 01/22/2025 10:46 AM CDT Abnormal menstrual periods THYROXINE, FREE (FT4) Routine 01/22/2025 10:46 AM CDT Abnormal menstrual periods XR ABD KUB Routine 01/22/2025 10:06 AM CDT Abdominal bloating Vomiting without nausea, unspecified vomiting type Gastroesophageal reflux disease, unspecified whether esophagitis present TEST URINE Routine 01/22/2025 Abdominal bloating Vomiting without nausea, unspecified vomiting type Abnormal menstrual periods CYTOPATH CERV/VAG THIN LAYER Routine 09/01/2021 12:44 PM CDT Well woman exam HEPATITIS C ANTIBODY Routine 08/11/2021 2:00 PM CDT from Last 3 Months or Most Recently Relevant to Health Maintenance Results * IRON SAT PANEL (IRON,IBC,%SAT) (02/19/2025 1:02 PM [employer]) Pathologist [facility] IRON 144 50 - 170 MCG/DL 02/20/2025 1:[address] [facility] IRON BINDING CAPACITY 346 250 - 450 MCG/DL 02/20/2025 1:[address] [facility] IRON SATURATION 42 % 1:[address] [facility] Comment:REFERENCE RANGE NOT ESTABLISHED 02/19/2025 1:02 PM [employer] Darcy Gisela [facility] Final Resul t Performing Organization Address City/[facility]/ZIP Co de Phone Number [facility] [address] [facility] [place] [place] [address], [place] [phone] * FERRITIN (02/19/2025 1:02 PM [employer]) FERRITIN 27.6 8.0 - 252.0 NG/ML 02/19/2025 9:[address] [facility] 02/19/2025 1:02 PM [employer] Darcy Gisela [facility] Final Resul t Performing Organization Address City/[facility] de Phone Number [facility] [address] [place] [address], [place] [phone] * (ABNORMAL) COMPREHENSIVE METABOLIC PANEL (01/22/2025 10:46 AM CDT) SODIUM S/P/B 139 136 - 145 MMOL/L 01/23/2025 10:[address] [facility] POTASSIUM S/P/B 4.3 3.5 - 5.1 MMOL/L 01/23/2025 10:[address] [facility] CHLORIDE S/P/B 103 98 - 107 MMOL/L 01/23/2025 10:[address] [facility] CO2 27.8 21 - 32 MMOL/L 01/23/2025 10:[address] [facility] GLUCOSE 89 70 - 99 MG/DL 01/23/2025 10:[address] [facility] BUN 12 7 - 18 MG/DL 01/23/2025 10:[address] [facility] CREATININE S/P/B 0.56 0.55 - 1.02 MG/DL 01/23/2025 10:[address] [facility] CALCIUM S/P/B 8.9 8.4 - 10.5 MG/DL 01/23/2025 10:36 AM [facility] BILIRUBIN TOTAL S/P/B 0.8 0.2 - 1.0 MG/DL 01/23/2025 10:[address] [facility] ALKALINE PHOSPHATASE S/P/B 74 37 - 98 U/L 01/23/2025 10:[address] [facility] AST 13(L) 15 - 37 U/L 01/23/2025 10:[address] [facility] ALT 21 14 - 59 U/L 01/23/2025 10:36 AM [facility] TOTAL PROTEIN S/P/B 7.0 6.4 - 8.2 G/DL 01/23/2025 10:36 AM [facility] ALBUMIN S/P/B 3.8 3.4 - 5.0 G/DL 01/23/2025 10:36 AM [facility] ANION GAP 8.2 5 - 15 MMOL/L 01/23/2025 10:36 AM [facility] Comment:REFERENCE RANGE NOT ESTABLISHED OSMOLALITY (CALC) 287 MOSM/KG 025 10:36 AM [facility] Comment:REFERENCE RANGE NOT ESTABLISHED GFR ESTIMATE >90 >90 ML/MIN/1. 73 M2 01/23/2025 10:[address] [facility] GFR NOTES GFR REFERENCE S: 01/23/2025 10:36 AM [facility] Comment: THE ESTIMATED GFR IS CALCULATED USING THE 2020 CKD-EPI EQUATION. THE FOLLOWING CATEGORIES FOR GRADING RENAL FUNCTION ARE RECOMMENDED BY THE INTERNATIONAL SOCIETY OF NEPHROLOGY (KDIGO 2012 CLINICAL PRACTICE GUIDELINE). G1,NORMAL OR HIGH: >89 ml/min/1.73 m2 G2,MILDLY DECREASED: 60-89 ml/min/1.73 m2 G3A,MILDLY TO MODERATELY DECREASED: 45-59 ml/min/1.73 m2 G3B,MODERATELY TO SEVERELY DECREASED: 30-44 ml/min/1.73 m2 G4,SEVERELY DECREASED: 15-29 ml/min/1.73 m2 G5,KIDNEY FAILURE: <15 ml/min/1.73 m2 01/22/2025 10:4 6 AM CDT Darcy [facility] Final Resul t [facility] [address] [place] [address], * (ABNORMAL) CBC W/DIFF AUTOMATED (01/22/2025 10:46 AM CDT) WBC 8.20 4.00 - 10.80 x10'3/uL 01/22/2025 8:[address] [facility] RBC 4.98 4.10 - 5.40 x10'6/uL 01/22/2025 8:[address] [facility] HGB 13.0 12.0 - 16.0 G/DL 01/22/2025 8:[address] [facility] HCT 41.5 36.0 - 47.0 % 01/22/2025 8:[address] [facility] MCV 83.3 78.0 - 100.0 FL 01/22/2025 8:[address] [facility] MCH 26.1(L) 27.0 - 31.0 PG 01/22/2025 8:[address] [facility] MCHC 31.3(L) 33.0 - 36.0 G/DL 01/22/2025 8:[address] [facility] RDW 12.8 11.5 - 14.5 % 01/22/2025 8:[address] [facility] PLT 288 150 - 350 x10'3/uL 01/22/2025 8:41 PM CDT [facility] MPV 11.4(H) 7.4 - 10.4 FL 01/22/2025 8:41 PM CDT -[facility] DIFFERENTIAL TYPE AUTOMATED DIFFERENTIAL 01/22/2025 8:[address] [facility] NEUTROPHILS % 50.4 % 01/22/2025 8:[address] [facility] LYMPHOCYTES % 39.8 % 01/22/2025 8:41 PM CDT -[facility] MONOCYTES % 7.1 % 01/22/2025 8:[address] [facility] EOSINOPHILS % 2.0 % 01/22/2025 8:[address] [facility] BASOPHILS % 0.5 % 01/22/2025 8:[address] [facility] IMMATURE GRANS % 0.2 % 01/22/2025 8:41 PM CDT -[facility] ABS. NEUTROPHILS 4.14 1.60 - 8.30 x10'3/uL 01/22/2025 8:41 PM CDT -[facility] ABS. LYMPHOCYTES 3.26 0.80 - 4.70 x10'3/uL 01/22/2025 8:41 PM CDT [facility] ABS. MONOCYTES 0.58 0.00 - 1.50 x10'3/uL 01/22/2025 8:[address] [facility] ABS. EOSINOPHILS 0.16 0.00 - 0.40 x10'3/uL 01/22/2025 8:[address] [facility] ABS. BASOPHILS 0.04 0.00 - 0.20 x10'3/uL 01/22/2025 8:41 PM CDT [facility] ABS. IMMATURE GRANULOCYTES 0.02 0.00 - 0.03 x10'3/uL 01/22/2025 8:[address] [facility] 01/22/2025 10:4 6 AM CDT Darcy [facility] Final Resul t Performing Organization Address [facility] Co de Phone Number [address] [address], [place] [phone] * THYROXINE, FREE (FT4) (01/22/2025 10:46 AM CDT) FREE T4 0.95 0.76 - 1.46 NG/DL 01/23/2025 10:[address] [facility] 01/22/2025 10:4 6 AM CDT Darcy [facility] Final Resul t Performing Organization Address [facility] de Phone Number [address] [address], [place] [phone] * (ABNORMAL) THYROID STIM HORMONE TSH (01/22/2025 10:46 AM CDT) TSH 4.546(H) 0.358 - 3.740 uIU/ML 01/23/2025 10:[address] [facility] 01/22/2025 10:4 6 AM CDT Darcy [facility] Final Resul t Performing Organization Address [facility] Co de Phone Number [address] [address], [place] [phone] * LIPASE (01/22/2025 10:46 AM CDT) LIPASE 23 16 - 77 UNITS/L 01/23/2025 11:37 AM CDT [facility] Comment:NEW REFERENCE RANGE 01/22/2025 10:4 6 AM CDT Darcy Higgins APNP LABORATORY Final Resul t [facility] [address] [facility] [place] [address], * XR ABD KUB (01/22/2025 10:06 AM CDT) Anatomical Region Laterality Modality Abdomen Radiographic Clary ging 01/22/2025 11:1 6 AM CDT Impressions 01/22/2025 11:17 AM CDT IMPRESSION: 1. Nonobstructive bowel gas pattern. 2. Mild to moderate colonic stool burden. Ordered By: DARCY HIGGINS Interpreted By: Dominic Samuel MD, 01/22/2025 11:16 AM Narrative 01/22/2025 11:17 AM CDT [facility] [place] [address] Examination: XR ABD KUB Exam time: 01/22/2025 9:53 AM Clinical history: Bloating for one week. Change of bowel habits. Comparison: No prior exam Technique: AP supine views Findings: Nonobstructive bowel gas pattern. No evidence of focal gastric, small bowel, or colonic gaseous distention. Gas is present within nondistended stomach. No evidence of significant small bowel gas. Mild to moderate amount of mixed gas and stool density projects throughout the expected position of nondistended colon. No evidence of abnormal soft tissue densities. Small calcification left side lower pelvis consistent with a phlebolith. Procedure Note Dominic Samuel MD - 01/22/2025 [facility] [address] [address] Examination: XR ABD KUB Exam time: 01/22/2025 9:53 AM Clinical history: Bloating for one week. Change of bowel habits. Comparison: No prior exam Technique: AP supine views Findings: Nonobstructive bowel gas pattern. No evidence of focal gastric,small bowel, or colonic gaseous distention. Gas is present withinnondistended stomach. No evidence of significant small bowel gas. Mild tomoderate amount of mixed gas and stool density projects throughout theexpected position of nondistended colon. No evidence of abnormal softtissue densities. Small calcification left side lower pelvis consistentwith a phlebolith. IMPRESSION: 1. Nonobstructive bowel gas pattern. 2. Mild to moderate colonic stool burden. Ordered By: DARCY HIGGINS Interpreted By: Dominic Samuel MD, 01/22/2025 11:16 AM Darcy [facility] Final Resul t * TEST URINE (01/22/2025) URINE HCG TEST NEGATIVE NEGATIVE [facility] Internal Control: VALID VALID [facility] URINE SPECIMEN FROM URETHRA / Unknown 01/22/2025 Darcy [facility]RE[facility] URINE ORDERABLES Final Resu lt [facility] [address] [place] [address], * Cytopath Cerv/Vag Thin Layer (09/01/2021 12:44 PM CDT) CLINICAL INFORMATION: Information not provided [facility] Clinical Information: 08/07/2021 REGULAR [employer] [facility] Date of Last Pap Information not provided [facility] Previous Biopsy? Information not provided [facility] SOURCE (QST) Cervix, Endocervix [facility] STATEMENT OF ADEQUACY: [employer] [facility] Comment: Satisfactory for evaluation. Endocervical/transformation zone component present. PAP INTERPRETATION/RESU LTS Negative for intraepithelial lesion or malignancy. [employer] [facility] LOG COOKER [employer] [facility] Comment: MVB, CT(ASCP) CT screening location: [place] [address] [address] [place] [address] COMMENT: [facility] [facility] [facility] Comment: EXPLANATORY NOTE: The Pap is [...] ORDERABL ES Final Result Performing Organization Address [facility]/ZIP Co de Phone Number [employer] [facility] [place] [address] [place] [address] * HEPATITIS C ANTIBODY (08/11/2021 2:00 PM CDT) HEPATITIS C AB NON-REACTI VE NON-REACT MYRON 08/12/2021 9:[address] [facility] Comment: ANTIBODIES TO HCV NOT DETECTED. DOES NOT EXCLUDE THE POSSIBILITY OF EXPOSURE TO HCV. 08/11/2021 2:00 PM CDT Pinky Alfaro [facility] Final Res ult 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
--- OUTSIDE RECORDS SUMMARY | 2025-04-08 21:09 | XMS_ITS | Clinical Summary ---
Author Organization [facility] [address] Address [address] [place] [address] Care Team Providers Care Student Development Coordinator Name Role Phone Radha Higgins Primary Care Provider + Allergies No known active allergies Medications clonazePAM (KlonoPIN) 0.5 mg tablet [address] bid Active esomeprazole [address] (NexIUM) 20 mg capsule [...] 1 tablet (25 mcg total) by mouth hand heel seat fitter before breakfast 3 Active propranoloL (INDERAL) 10 mg tablet Active EPINEPHrine 0.3 mg/0.3 mL auto-injection syringe [...] on file Legal Sex Female 11:00 PM CLINICAL ORTHOPTIST Gender Identity Not on file Sexual Orientation Not on file Obstetrics History Para Term AB IAB SAB Ectopic Multiple Livin g Live Births 1 1 1 1 Date Outcome GA Total Labor Labor/2nd/3rd Weight Sex Type Anes PTL Ludivina A1 A5 Name Clin Term Vaginal Last Filed Vital Signs Vital Sign Reading [...] Cervical Cancer Screening 09/01/2022 09/01/2021 Covid-19 Vaccine (2024-05 6 season) 2024 07/28/2021, 12/07/2020, 11/16/2020 Influenza Vaccine (#1) 2024 3, 01/19/2022, 03/07/2021, Additional history exists DTaP/Tdap/Td Vaccine (9 - Td or Tdap) 04/17/2029 04/17/2019, 03/18/2019, 11/27/2009, Additional history exists Pneumococcal vaccine <65 Completed 11/17/1999, 05/1999 Varicella Vaccines Completed 01/18/2007, 0 11/03/2003, 05/16/1999, Additional history exists HPV Vaccines Completed 04/05/2010, 11/08, 09/30/2009, Additional history exists Hepatitis B Screening Completed 01/19/2022 , 1998, 1998, Additional history exists Insurance [facility] [place] [place] [address] Care Teams Student Development Coordinator Relationship Specialty Start Date End Date Radha Higgins PA [address] [place] [address] PCP - General Nurse Practitioner 06/10/23
--- OUTSIDE RECORDS SUMMARY | 2025-04-08 21:09 | XMS_ITS | Patient Health Record ---
Author Organization [facility] [employer] [place] ([address]) Address [address] [place] [address] Care Team Providers Care Gis Administrator Name Role Phone Radha Higgins Primary Care Provider Jennifer Mariano Unavailable [phone] Allergies No Known Allergies Reason For Referral No Information Medications Medication [...] Status Risk Notes Problem Chronic allergic conjunctivitis (62651238) Other chronic allergic conjunctivitis (H10.45) Active confirmed Problem Allergic rhinitis (55605727) Other allergic rhinitis (J30.89) Active confirmed Problem Uncomplicated mild persistent asthma (403802821) Mild persistent asthma, uncomplicated (J45.30) Active confirmed Encounters Encounter Location Date Provider Diagnosis [facility] [address] [place] [address] 08/20/2024 Jennifer Segovia Plan Of Treatment No Information Medical (General) History Medical History History ICD Code Anxiety disorder, unspecified F41.9 Depression, unspecified F32.A Gastro-esophageal reflux disease without esophagitis K21.9 Hospitalization History Reason Date(Month/Year) food poisoning and pneumonia
--- OUTSIDE RECORDS SUMMARY | 2025-04-08 21:09 | XMS_ITS | Data Portability ---
Author Organization [employer] , [facility] Address [address] [place] [address] Assessment Encounter Date Assessment Date Assessment LastModified by Organization Details LastModified Time 09/30/2024 09/30/2024 The patient is a 24-year-old [...] disease, we advised continued monitoring with her oriental rug stretcher, especially in light of the new mass found on MRI.Finally, we advised scheduling a preconception counseling visit with maternal medicine to ensure a healthy plan. Not available 10/02/2024 10:34:37 11/06/2024 11/06/2024 The patient is a 24-year-old female with a history of irregular menstruation and severe pelvic pain, presenting for evaluation. Her irregular menstruation may be linked to her weight, as she struggles with weight loss despite dietary efforts. The pelvic pain, severe and radiating, was assessed in the emergency department, where an ultrasound identified a 5 mm avascular irregular focus within the endometrial complex, not considered the pain's cause. Not available 11/07/2024 07:57:08 Plan of Treatment Reminders Order Date Submit Date Provider Last Modified By Organization Details Last Modified Time Details Appointments None recorded. Lab hemoglobin A1c, QN, blood 2024 025 DNS:[facility], [address] [place], [address], 5 17:40:02 unlisted lab - anti-casey ania hormone (amh), female 2024 025 [facility], [address] [place] [address], [address], [address], 5 15:30:31 vitamin D, 25-hydroxy, total, serum 2024 025 [facility], [address] [place], [address], 5 15:30:31 TSH + free T4, serum 2024 025 DNS:[facility], [address] [place], [address], 5 11:46:11 T3, free, serum or plasma 2024 025 DNS:[facility], [address] [place], [address], 5 11:46:12 beta-HCG, quantitativ e, serum or plasma 2023 024 [facility], [address] [place], [address], 4 11:53:45 test, urine 2023 024 mary [facility], [address] [facility] [place], [address], 4 16:41:23 TSH + free T4, serum 2023 024 [facility], [address] [place], [address], 4 11:38:47 Referral physical therapist referral 2024 025 [facility], [address] [facility] , [place], [address], 5 14:41:48 maternal & medicine referral - Consult for pre-concept ion counseling. Patient has fatty liver with possible mass on liver and has been TTC for 1.5 years. Also issues with tachycardia and possibly needing work up for POTS. Is being followed by hepatologis t and cardiologis t. 2024 025 [email or web address] [facility], [address] [facility], [address], [address], 5 12:44:15 Procedures None recorded. Surgeries None recorded. Imaging US, transvagina l 2023 024 [id number] Not available 16:47:25 Medication Orders None recorded. Patient TargetsNo targets recorded. Patient Instructions Encounter Date Encounter Id Patient Instructions Last Modified By Organization Details Last Modified Time 11/06/2024 [id number] - Continue following the Mediterranean diet and avoid sugary drinks. - Increase physical activity to aid in weight loss. - Follow up with physical therapy as planned. - Schedule saline infusion sonography to evaluate for potential uterine polyps. Not available 11/07/2024 07:57:17 Reason for Referral Maternal & Medicine Re ferral for Metabolic dysfunction-associated steatotic liver disease Consult for pre-conception counseling. Patient has fatty liver with possible mass on liver and has been TTC for 1.5 years. Also issues with tachycardia and possibly needing work up for POTS. Is being followed by oriental rug stretcher and signals collection technician. Referring Physician: Shannon Mahajan, SILVERSMITH APPRENTICE, Encounter Date: 09/30/2024 Physical Therapist Referral for Pain in pelvis Referring Physician: Shannon Mahajan SILVERSMITH APPRENTICE, Encounter Date: 11/06/2024 Results Created Date Observation Date Name Description Value Unit Range Abnormal Flag Note LastModifiedBy Organization Detail LastModifiedTime 09/17/1909/16/2024 ANTI- MULLE MARCOS HORMO NE (AMH) , FEMAL E anti-mulleri an hormone (amh), female 4.84 NG/mL 0.69-1 3.39 Not Available [facility] [id number], [place], [address], 09/16/2024 15:30:31 09/17/19 25 09/16/2024 VITAM IN D,25- OH,TO VIPIN,I A vitamin [...] /MS is recom ulisses d: order code [id number] (josé miguel ents >2yrs ). See Note 1 NO COLLE CTION DATE RECEI PK. WE HAVE USED THE DATE THE SPECI MEN WAS RECEI PK BY THIS LABOR ATORY THE COLLE CTION DATE. IF THIS IS INCOR RECT, PLELINDA E CONTA CT CLIEN T SERVI THANIA. PHONE NUMBE R: [phone] Note 1 For addit ional infor luna vergara refer to http: //[facility] aubrey venegas.Que stDia gnost ics.c om/fa q/FAQ 199 (This link is being provi ded for infor sage nal/ educa elizabeth l purpo ses only. ) Not Available [facility] [address], [place], [address], 09/16/2024 15:30:31 04/16/19 24 04/17/2023 TSH W/ T4, FREE TSH 3.21 mIU/L 0.55 - 4.78 normal Refer ence Range Femal e aged 18-Ad ult: 0.55- 4.78 Pregn christopher Refer ence Range s First Trime ster 0.26- 2.66 Secon d Trime ster 0.55- 2.73 Third Trime ster 0.43- 2.91 [place], [address], 04/17/2023 11:38:47 04/16/19 24 04/17/2023 TSH W/ T4, FREE T4, free 0.95 NG/dL 0.89 - 1.76 normal [place], [address], 04/17/2023 11:38:47 04/16/19 24 04/17/2023 HCG, TOTAL [...] has not been valid ated [facility] this assay . Not Available [employer] [place], [address], 04/17/2023 11:53:45 04/16/19 24 04/16/2023 pregn christopher test, urine HCG negati ve Not Available [facility] [address] [facility] [place], [address], 04/16/2023 16:41:13 09/12/19 25 09/12/2024 TSH W/ T4, FREE TSH 3.22 mIU/L 0.55 - 4.78 normal Refer ence Range Femal e aged 18-Ad ult: 0.55- 4.78 Pregn christopher Refer ence Range s First Trime ster 0.26- 2.66 Secon d Trime ster 0.55- 2.73 Third Trime ster 0.43- 2.91 Not Available [facility] [email or web address] [address] [place] [address], [address], 09/12/2024 11:46:11 09/12/19 25 09/12/2024 TSH W/ T4, FREE T4, free 1.02 NG/dL 0.89 - 1.76 normal Not Available [address], [address], 09/12/2024 11:46:11 09/12/19 25 09/12/2024 T3, FREE T3, free 3.3 pg/mL 2.3 - 4.2 normal Not Available [address], [address], 09/12/2024 11:46:12 09/12/19 25 09/12/2024 HEMOG LOBIN A1C hemoglobin A1C 5.4 % <5.7 normal The refer ence range for HbA1c is indic ated in the table below . Sugge sted Diagn osis =6.5% Consi stent with diabe dotite 5.7 6.4% Consi stent with incre ased risk for diabe dottie (pred iabet ic) <5.7% Consi stent with the absen ce of diabe dottie Not Available [address], [address], 09/12/2024 17:40:02 04/26/19 24 04/25/2023 US, trans arlenin al No observ ation record ed. bnotzke Emilia [address], [place], [address], 04/26/2023 11:01:01 Result Notes None recorded. Problems Name Problem SNOMED Code Status Onset Date Resolution Date Notes Provider Name and Address Organization Details Recorded Time Steatoti c liver disease 161126439 Active Melly Granger shara, [facility] 3 15:48:00 Removal of subcutan eous contrace ptive done [id number] 9100 Completed 201705/05/2018 Removal of subderma l implanta ble contrace ptive; Location : None Severity : Moderate Progress : Stable Added By: Maya Broussard Add to Current Problems : YES ProblemS tatus: Resolve Not Available [facility] 1 03:03:23 Insertio n of intraute rine contrace ptive device done [id number] 9109 Completed 201709/26/2018 Encounte r for insertio [...] : NO ProblemS tatus: Resolve Not Available [facility] 1 03:03:23 Subcutan eous contrace ptive implant present 383016871 Completed 201705/05/2018 Removal of subderma l implanta ble contrace ptive; Location : None Progress : Stable Added By: Maya Broussard Add to Current Problems : YES ProblemS tatus: Resolve Not Available [facility] 2 14:54:38 Pelvic and perineal pain 774931732 Completed 201701/21/2018 Pelvic and perineal pain; Progress : Stable Added By: Shannon Mahajan Add to Current Problems : NO ProblemS tatus: Resolve Not Available [facility] 2 14:54:39 Sexual function painful Completed 201701/21/2018 Unspecif ied dyspareu ton; Progress : Stable Added By: Shannon Mahajan Add to Current Problems : NO ProblemS tatus: Resolve Not Available [facility] 2 14:54:39 Clinical finding Completed 201709/26/2018 Presence of (intraut erine) contrace ptive device; Progress : Stable Added By: Maya Broussard Add to Current Problems : NO ProblemS tatus: Resolve Not Available [facility] 2 20:54:02 Uses intraute rine contrace ption 550940670 Completed 201709/26/2018 Patient with intraute rine contrace ptive device (IUD); Location : None Severity : Moderate Progress : Stable Added By: Maya Broussard Add to Current Problems : YES ProblemS tatus: Current Patient with intraute rine contrace ptive device (IUD); Severity : Moderate Progress : Stable Added By: Maya Broussard Add to Current Problems : NO ProblemS tatus: Resolve Not Available [facility] 1 03:03:24 Syphilis test finding 286527316 Completed 201705/20/2019 Encounte r for screenin g for infectio ns with a predomin antly sexual mode of transmis blanca; Progress : Stable Added By: Agatha Red Add to Current Problems : NO ProblemS tatus: Resolve Not Available [facility] 2 20:54:02 Dyspareu ton 29742959 Completed 201701/21/2018 Dyspareu ton; Location : None Progress : Stable Added By: Shannon Mahajan Add to Current Problems : YES ProblemS tatus: Resolve Not Available [facility] 2 14:54:41 Pelvic and perineal pain 759452441 Completed 201701/21/2018 pelvic pain; Location : None [...] Start Date : 08/04/19 18 Not Available [facility] 1 03:03:27 Female genital organ symptoms 623569930 Completed 201701/21/2018 pelvic pain; Progress : Stable Added By: Shannon Mahajan Add to Current Problems : NO ProblemS tatus: Resolve Female pelvic pain; Progress : Stable Added By: Maya Broussard Add to Current Problems : NO ProblemS tatus: Resolve; Start Date : 08/04/19 18 Not Available [facility] 2 14:54:40 Venereal disease screenin g Completed 201701/21/2018 Screenin g for STDs; Progress : Stable Added By: Shannon Mahajan Add to Current Problems : NO ProblemS tatus: Resolve Not Available [facility] 2 14:54:42 Removal of intraute rine device Completed 201809/26/2018 Encounte r for removal of intraute rine contrace ptive device; Progress : Stable Added By: Maya Broussard Add to Current Problems : NO ProblemS tatus: Resolve Not Available [facility] 2 14:54:38 Gestatio n period, 8 weeks 91460675 Completed 201805/20/2019 8 weeks gestatio n of pregnanc y; Progress : Stable Added By: Keri Javier Add to Current Problems : NO ProblemS tatus: Resolve Not Available [facility] 2 14:54:44 Pregnanc y, childbir th and puerperi um finding Completed 201805/20/2019 Encounte r for supervis ion of normal first pregnanc y, first trimeste r; Progress : Stable Added By: Keri Javier Add to Current Problems : NO ProblemS tatus: Resolve Not Available [facility] 2 14:54:39 Gestatio n period, 12 weeks 48403562 Completed 201805/20/2019 12 weeks gestatio n of pregnanc y; Progress : Stable Added By: Keri Javier Add to Current Problems : NO ProblemS tatus: Resolve Not Available [facility] 2 14:54:46 Hypothyr oidism 55349882 Completed 201805/20/2019 Other specifie d hypothyr oidism; Progress : Stable Added By: Maya Broussard Add to Current Problems : NO ProblemS tatus: Resolve; Start Date : 09/27/19 19 Hypot hyroidis m, unspecif ied; Progress : Stable Added By: Pardeep Coffman Add to Current Problems : NO ProblemS tatus: Resolve HALIE CHEW, [facility] [address] [facility], [place], [address] , [facility] 5 15:33:58 Gestatio n period, 17 weeks 91733862 Completed 201805/20/2019 17 weeks gestatio n of pregnanc y; Progress : Stable Added By: Mary Montelongo Add to Current Problems : NO ProblemS tatus: Resolve Not Available [facility] 2 14:54:47 Pregnanc y, childbir th and puerperi um finding Completed 201805/20/2019 Encounte r for supervis ion of normal first pregnanc y, second trimeste r; Progress : Stable Added By: Nafisa Bowie Add to Current Problems : NO ProblemS tatus: Resolve Not Available [facility] 2 14:54:42 Gestatio n period, 20 weeks 22977102 Completed 201805/20/2019 20 weeks gestatio n of pregnanc y; Progress : Stable Added By: Nafisa Bowie Add to Current Problems : NO ProblemS tatus: Resolve Not Available [facility] 2 14:54:45 Antenata l screenin g for malforma tion Completed 201805/20/2019 Encounte r for antenata l screenin g for malforma tions; Progress : Stable Added By: Nafisa Bowie Add to Current Problems : NO ProblemS tatus: Resolve Not Available [facility] 2 20:54:02 Gestatio n period, 24 weeks 718152063 Completed 201805/20/2019 24 weeks gestatio n of pregnanc y; Progress : Stable Added By: Nafisa Bowie Add to Current Problems : NO ProblemS tatus: Resolve Not Available [facility] 2 14:54:38 Pregnanc y, childbir th and puerperi um finding Completed 201805/20/2019 Encounte r for supervis ion of normal first pregnanc y, third trimeste r; Progress : Stable Added By: Agatha Red Add to Current Problems : NO ProblemS tatus: Resolve Not Available [facility] 2 14:54:42 Gestatio n period, 28 weeks 64940989 Completed 201805/20/2019 28 weeks gestatio n of pregnanc y; Progress : Stable Added By: Justin Schafer Add to Current Problems : NO ProblemS tatus: Resolve Not Available [facility] 2 14:54:43 Gestatio n period, 30 weeks 84338435 Completed 201805/20/2019 30 weeks gestatio n of pregnanc y; Progress : Stable Added By: Justin Schafer Add to Current Problems : NO ProblemS tatus: Resolve Not Available [facility] 2 14:54:41 Normal pregnanc y in multigra vijay [id number] 4106 Completed 201805/20/2019 Encounte r for supervis ion of other normal pregnanc y, third trimeste r; Progress : Stable Added By: Pardeep Coffman Add to Current Problems : NO ProblemS tatus: Resolve Not Available [facility] 2 14:54:43 Uterine size for dates discrepa ncy Completed 201805/20/2019 Uterine size-angie e discrepa ncy, third trimeste r; Progress : Stable Added By: Stephanie Xiong Add to Current Problems : NO ProblemS tatus: Resolve Not Available [facility] 2 14:54:39 Gestatio n period, 32 weeks 1295446 Completed 201805/20/2019 32 weeks gestatio n of pregnanc y; Progress : Stable Added By: Stephanie Xiong Add to Current Problems : NO ProblemS tatus: Resolve Not Available [facility] 2 14:54:43 Gestatio n period, 34 weeks 39142251 Completed 201805/20/2019 34 weeks gestatio n of pregnanc y; Progress : Stable Added By: Aagtha Red Add to Current Problems : NO ProblemS tatus: Resolve Not Available [facility] 2 14:54:46 Gestatio n period, 36 weeks 13055514 Completed 201905/20/2019 36 weeks gestatio n of pregnanc y; Progress : Stable Added By: Pardeep Coffman Add to Current Problems : NO ProblemS tatus: Resolve Not Available [facility] 2 14:54:46 Antenata l screenin g Completed 201905/20/2019 Encounte [...] Start Date : 09/27/19 19 Not Available [facility] 2 14:54:46 Gestatio n period, 37 weeks 30965622 Completed 201905/20/2019 37 weeks gestatio n of pregnanc y; Progress : Stable Added By: Agatha Red Add to Current Problems : NO ProblemS tatus: Resolve Not Available [facility] 2 14:54:40 Lochia finding Completed 201905/20/2019 Encounte r for routine postpart um follow-u p; Progress : Stable Added By: Radha Aceves Add to Current Problems : NO ProblemS tatus: Resolve Not Available [facility] 2 14:54:42 Depressi on screenin g Completed 201905/20/2019 Encounte r for screenin g for maternal depressi on; Progress : Stable Added By: Radha Aceves Add to Current Problems : NO ProblemS tatus: Resolve Not Available [facility] 2 14:54:44 Sampling of vagina for Papanico laou smear Completed 201905/20/2019 Encounte r for gynecolo gical examinat ion (general ) (routine ) without abnormal findings ; Progress : Stable Added By: Agatha Red Add to Current Problems : NO ProblemS tatus: Resolve Not Available [facility] 2 14:54:45 Screenin g for malignan t neoplasm of cervix Completed 201905/20/2019 Encounte r for screenin g for malignan t neoplasm of cervix; Progress : Stable Added By: Agatha Red Add to Current Problems : NO ProblemS tatus: Resolve Not Available [facility] 2 14:54:40 Bipolar affectiv e disorder , current episode mixed 750986730 Active [address], [address] , [facility] [employer] [facility] 5 15:26:56 Depressi ve disorder 25904137 Active [address], [address] , [facility] [employer] [facility] 5 15:27:09 Hypothyr oidism 16579558 Active 2024 Other specifie d hypothyr oidism; Progress : Stable Added By: Maya Broussard Add to Current Problems : NO ProblemS tatus: Resolve; Start Date : 09/27/19 19 Hypot hyroidis m, unspecif ied; Progress : Stable Added By: Pardeep Coffman Add to Current Problems : NO ProblemS tatus: Resolve HALIE CHEW [address], [address] , [facility] [employer] 5 15:33:58 Notes:Patient with intrauter ine [...] 3 Nexplanon Removal completed CHANDNI BUCKLEY MD [address] [facility], [place], [address], [facility] 09/22/2022 15:31:18 3 Date of Last Pap Smear completed Margarita Kaiser [facility] 09/11/2024 15:17:41 excision of ganglion cyst completed [facility] 12/15/2022 15:50:41 endoscopy completed [facility] 12/15/2022 15:50:48 Imaging Results None recorded. Procedure [...] completed Not Available Not Available Not Available naproxen 375 mg tablet TAKE ONE TABLET BY MOUTH TWICE DAILY active Not Available Not Available No t Available benzonata te 200 mg capsule TAKE [...] sucralfa te 1 gram oral tablet RxNorm: 283528 Allow Substitu tion: True Refill Denied: No Edited by: juno(Tiffani Samuel ) on 03/19/20 19 Stopped by: juno(Tiffani Samuel ) on Not Available Not Available Not Available metronida zole 0.75 % (37.5 mg/5 gram) vaginal gel insert 1 applicat orful (37.5 mg) by vaginal route QHS x 5 nights 06/10 completed metroNID AZOLE 0.75 % Vaginal Gel RxNorm: 129454 Allow Substitu tion: True Refill Denied: No Edited by: alex(Radha Deras ) on 06/11/19 Stopped by: alex(Radha Deras ) on 06/11/19 Not Available Not Available [...] levothyr oxine 75 mcg oral tablet RxNorm: 956757 Allow Substitu tion: True Refill Denied: No [...] levothyr oxine 100 mcg oral tablet RxNorm: 003317 Allow Substitu tion: True Refill Denied: No Edited by: Radha Montague ) on 05/06/19 Stopped by: alex(Radha Deras [...] completed Xanax 0.25 mg oral tablet RxNorm: 331573 Allow Substitu tion: False Refill Denied: No Refill DateOccu rred: 05/06/19 Edited by: alireza serna(Agatha Donovan ) on 05/20/19 Stopped by: alireza serna(Agatha Donovan ) on 05/20/19 Not Available Not Available Not Available levothyro xine 50 mcg tablet take 1 tablet (50 mcg) by oral route once daily 05/06 completed levothyr oxine 50 mcg oral tablet RxNorm: 614023 Allow Substitu tion: True Refill Denied: No [...] levothyr oxine 125 mcg oral tablet RxNorm: 662510 Allow Substitu tion: False Refill Denied: No Refill DateOccu rred: 05/06/19 Edited by: Ainsley Corcoran ) on 02/26/20 Stopped by: Ainsley Corcoran ) on 02/26/20 Not Available Not Available Not Available polymyxin [...] auto-inje ctor INJECT IN THE MUSCLE NEEDED 11/06 completed Not Available Not Available Not Available levofloxa saman 750 mg tablet TAKE [...] ole magnesium 20 mg capsule,d elayed release 11/06 completed Not Available Not Available Not Available Sprintec (28) 0.25 mg-0.035 mg tablet take 1 tablet by oral route once daily 09/19 completed Sprintec (28) 0.25-35 mg-mcg oral tablet RxNorm: 319948 Allow Substitu tion: True Refill Denied: No Edited by: Ainsley Corcoran ) on 02/26/20 20 Stopped by: Ainsley Corcoran ) on Not Available Not Available Not Available nitrofura ntoin monohydra te/macroc rystals 100 mg capsule 09/11 completed Not Available Not Available Not Available duloxetin e 30 mg capsule,d elayed release 09/11 completed Not Available Not Available Not Available [facility] active Not Available Not Available Not Available Prozac 1 daily 09/26 completed Prozac 40mg Capsules RxNorm: 973788 Allow Substitu tion: True Refill Denied: No Refill DateOccu rred: 05/30/19 Not Available Not Available Not Available pantopraz ole 09/19 completed Pantopra zole RxNorm: 0 Allow Substitu tion: True Refill Denied: No Refill DateOccu rred: 05/30/19 Edited by: Yessica Ivan) on 12/03/19 19 Stopped by: Yessica Ivan) on Not Available Not Available Not Available Vitamin B6 06/10 completed Vitamin B6 RxNorm: 0 Allow Substitu tion: True Refill Denied: No Refill DateOccu rred: 09/27/19 19 Edited by: alex(Radha Deras ) on 06/11/19 20 Stopped by: alex(Radha Deras ) on 06/11/19 20 Not Available Not Available Not Available Lexapro 1 p.o. qd 09/26 completed Lexapro 10mg Tablet RxNorm: 699924 Allow Substitu tion: True Refill Denied: No [...] Refill Denied: No Refill DateOccu rred: 09/27/19 19 Edited by: alireza kareem(Agatha Donovan ) on 05/20/19 20 Stopped by: alireza akreem(Agatha Donovan ) on 05/20/19 20 Not Available Not Available Not Available Kyleena 09/25 completed Kyleena 19.5mg Intraute rine System RxNorm: 6483893 Allow Substitu tion: True Refill Denied: No Refill DateOccu rred: 09/07/19 18 Not Available Not Available Not Available Bonjesta 20 mg-20 mg tablet,im mediate and delay release Take 1 tablet(s ) by mouth at bedtime on an empty stomach. 01/24 completed Bonjesta 20mg/20m g Tablets, Extended Release RxNorm: 9168611 Allow Substitu tion: True Refill Denied: No Edited by: Yessica Ivan) on 12/03/19 19 Stopped by: Yessica Ivan) on 01/25/20 19 Not Available Not Available Not Available Sutab 1.479-0.1 88-0.225 gram tablet 09/11 completed Not Available [...] Updated DateTime 04/16/2023 172.72 cm 40.2 kg/m2 784951. 1 g 97.3 [degF] 118/70 mm[Hg] [facility] [employer] [facility] 4 16:15:12 Date Recorded Body height Body mass index (BMI) Body weight Body temperature Systolic And Diastolic Provider Name and Address Organization Details Last Updated DateTime 04/25/2023 172.72 cm 39.7 kg/m2 394329. 05 g 97.9 [degF] 106/70 mm[Hg] Edwina [facility] [employer] 4 11:14:54 Date Recorded Body height Body mass index (BMI) Body weight Body temperature Systolic And Diastolic Provider Name and Address Organization Details Last Updated DateTime 09/11/2024 170.18 cm 41.6 kg/m2 810834. 13 g 96.6 [degF] 120/76 mm[Hg] Margarita Kaiser [facility] [employer] 5 15:14:37 Date Recorded Body height Body mass index (BMI) Body weight Systolic And Diastolic Provider Name and Address Organization Details Last Updated DateTime 09/30/2024 170.18 cm 42.1 kg/m2 332641.91 g 130/78 mm[Hg] Jenniffer Blank [facility] [employer] 09/30/2024 12:15:41 Date Recorded Body height Provider Name an d Address Organization Details Last Updated DateTime 11/06/2024 170.18 cm Radha Blank [facility] [employer] IV 11/06/2024 13:06:39 Social History Question Answer Notes LastModified by Organizat ion Details LastModified Time Tobacco Smoking Status Never Smoker [facility] [place] 12/15/2022 15:50:15 Are You Blind Or Do You Have Difficulty Seeing? No [email or web address] Information not available 09/11/2024 Are You Deaf Or Do You Have Serious Difficulty Hearing? No [email or web address] Information not available 09/11/2024 What Type Of Diet Are You Following? REGULAR [email or web address] Information not available 12/15/2022 How Many Children Do You Have? 1 [email or web address] Information not available 12/15/2022 What Is Your Relationship Status? Single [email or web address] Information not available 12/15/2022 Are You Sexually Active? Yes [email or web address] Information not available 12/15/2022 Sex: Female Functional Status Question Answer Note LastModified by Organizat ion Details LastModified Time Do you use any illicit or recreational drugs? No [email or web address] Information not available 12/15/2022 Do you or have you ever used any other forms of tobacco or nicotine? No [email or web address] Information not available 12/15/2022 What is your level of alcohol consumption? None Information not available 12/15/2022 What is your exercise level? Occasional [email or web address] Information not available 12/15/2022 Mental Status None recorded. Family History Relationship Description Onset Age of this Age Resolved Age Notes LastModified by Organization Details LastModified Time Father No current problems or disability [email or web address] Not available 12/15 15:50:01 Mother No current problems or disability [email or web address] Not available 12/15 15:50:01 Medical History Condition Response Polycystic Ovarian Syndrome N GERD (reflux) Y Gynecological History Statement/Question Response Date of Last Colonoscopy Date of last HPV Date of LMP 07/12/2024 Most Recent Bone Density Date of Last [...] Diagnosis SNOMED-CT Code Diagnosis ICD10 Code Diagnosis IMO Codes Diagnosis Note [id number] CHANDNI ALMARAZ MD [facility] [address] [facility] [place] [facility] [address] 09/19/2022 15:40:26 09/20/2022 12:30:07 Contraception care management 602748410 Z30.9 Slynd samples provided Removal of subcutaneous contraceptive 432618636 Z30.46 Obese class III 54121751 5 E66.01 [id number] HALIE CHEW [facility] [address] [place] [address] 12/15/2022 15:27:24 12/16/2022 10:16:00 Polycystic ovary syndrome 285465868 E28.2 Hypothyroidism 79947043 E03.9 Obesity 177903381 E66.9 Abnormal u terine bleeding 0151882914 9100 N93.9 Discussed if >60 days no bleeding or 90; 10 day provera if negative UPT Progestero ne; Provera 10 mg take daily for 1st 10 days of every month, following negative test [id number] HALIE CHEW [facility] [address] [place] [address] 04/16/2023 15:51:09 04/16/2023 17:03:49 Abnormal uterine bleeding 8803404071 9100 N93.9 Discussed if >60 days no bleeding or 90; 10 day provera if negative UPT Progestero ne; Provera 10 mg take daily for 1st 10 days of every month, following negative test. Pt was given rx last visit. Reports she took this monthly. Discussed again taking if no period after 90 days.RTC for TVUS Unprotecte d sexual intercourse 1260707 Z72.51 Polycystic ovary syndrome 945149537 E28.2 [id number] HALIE ARRIAGABayronHUMBERTO [facility] [address] [place] [address] 04/25/2023 10:10:10 04/25/2023 16:47:25 Abnormal uterine bleeding 1017615487 9100 N93.9 TVUS WNL Polycystic ovary syndrome 655221213 E28.2 Discussed Diet and Exercise.W ent over Supplement s to help regulate periods.Pt is not currently trying to conceive but would like to start thinking about it- edcuation given. Family ashley nning education 603891546 Z30.02 Pt is eventually Trying to Conceive. [...] if pt has not had positive UPT. [id number] HALIE CHEW, [facility] [address] [place] [address] 09/11/2024 15:07:13 09/11/2024 16:42:53 Polycystic ovary syndrome 306442625 E28.2 [id number] Last visit on 05/02/2023: Discussed Diet and [...] Complex pt with variety of PMH. Anxiety 05164877 F41.9 56134 Bipolar af fective disorder, current episode mixed 414507389 F31.63 7291666456 Pt reports she stopped all medication s because she thought this was making anxiety worse. Hypothyroidism 12471038 E03.9 [id number] Pt reports she has not been taking medication as prescribed . Body mass index 40+ - severely obese 946488824 E66.01 87638768 [id number] Shannon Mahajan MD [facility] [address] [place] [address] 09/30/2024 12:00:55 09/30/2024 13:07:22 Reproductive care management 701041767 Z31.81 Tachycardia 7345689 R00. 0 30446 The patient is advised to follow up with a cardiologi st to evaluate her tachycardi a and ensure it is not indicative of a more serious condition such as supraventr icular tachycardi a. Also to get results from her holter monitor. Metabolic dysfunction-associate d steatotic liver disease 2170885536 K76.0 1704454 The patient is advised to schedule a preconcept ion counseling visit with maternal medicine to discuss her conditions and ensure a healthy plan.Keep appointmen ts with hepatologi st to insure that they feel it is ok with get with current liver concerns.E ducation was provided on pre-eclamp augusto, Eclampsia and HELLP syndrome that also effect the liver during . 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 The patient was initially evaluated by IJMMY Maguire, who completed the history examinatio n, [...] The final plan of care was developed collaborjosephine vela and has been documented accordingl y. 30 minutes spent reviewing history, counseling and documentat ion of today's patient visit with >50% in face to face communicat ion with Mell. [id number] Shannon Mahajan MD [facility] [address] [place] [address] 11/06/2024 13:03:18 11/06/2024 14:38:27 Pain in pelvis 88041154 R10.2 Referral to physical therapy is planned to address the pelvic pain, as previous interventi ons have provided limited relief. Irregular periods 921340 07 N92.6 891319 Irregular Menstruati on: Irregular menstruati on is suspected to be related to the patient's weight, and weight management strategies will be emphasized . The patient is advised to continue her current dietary practices and increase physical activity to aid in weight loss.- Clinically not PCOS given prior workup Ultrasound scan abnormal 094329605 R93.89 230826 - The 5 mm avascular irregular focus identified on ultrasound will be monitored, and further imaging may be considered if symptoms persist or worsen. Reviwed on patient's my chart.- Recommend SIS to evaluate for polyp Severe obesity 953590921 1 9104 E66.813 Z68.41 [id number] Obesity: The patient is encouraged to maintain her Mediterran rebeca diet and avoid sugary drinks and other simple sugars, while increasing physical activity to achieve weight loss. Considerat ion of weight loss medication s was discussed, but the patient is aware of the financial implicatio ns as they are not covered by Medicaid. Health Concerns Section Related Observation LastModified by Organization Detai ls LastModified Time None Recorded Concern Status LastModified by Organization Details LastModified Time None Recorded Advance Directives Directive None Recorded Payers Insurance Date Sequence Insurance Name Policy Number Policy Oliveira Covered Member ID Oliveira Member ID Guarantor Name 04/14/2023 2 [employer] (HMO) [id number] Mell Bhakta [id number] Mell Bhakta 09/10/2024 3 [place] Mell Bhakta [id number] Mell Bhakta 06/01/2023 2 [employer] (POS II) Mell Bhakta [id number] Mell Cooperzer 04/16/2023 1 [facility] (EPO) [id number] Mell Bhakta [id number] Mell Bhakta 05/07/2024 2 [facility] Mell Cooperzer [id number] Mell Cooperzer 11/19/2023 4 [facility] [id number] Landonrudolph Cooperzer [id number] Mell Cooperzer 05/05/2024 1 [facility] [id number] Hazelmargarito Bhakta [id number] Mell Bhakta 07/08/2024 1 [facility] - AETNA (PPO) [id number] Landonrudolph Cooperzer [id number] Mell Bhakta 09/10/2024 1 [facility] PRIOR TO 11/07/2024 (MEDICAID REPLACEMENT - HMO) [id number] Mell Bhakta [id number] Mell Bhakta 12/01/2024 1 [facility] (MEDICAID HMO) [id number] Mell Bhakta [id number] Mell Bhakta Notes Date Note Type Note Provider Name and Address Organization Details Recorded Time 04/16/2023 text/html Abnormal BleedingReported by Patient Pt states since last year she has no had a period, she was diagnosed with PCOS and was given something to start them back up. Pt states she has been having symptoms. No period since January. She states took test and came back all negative. She states she is bloated and feel nauseous all the time. 04/16/2023 upt Negative MOLLY MYRICK-BC [address] [facility], [place], [address], [facility] IV 04/16/2023 16:51:33 04/25/2023 text/html Abnormal BleedingReported by Patient Mell presents today for Amenorrhoea. She states she only had a period May, and Jan 2023. October of 2022 she stopped her BC. She has no other concerns HALIE CHEW, BALAJI- [address] [place], [address], [facility] [employer] IV 04/25/2023 11:30:25 09/11/2024 text/html Mell is [...] be screened for endometriosis as well. HALIE CHEW [facility] [address] [place], [address], [facility] [employer] 09/11/2024 16:34:33 09/30/2024 text/html ROS as noted in the HPI The patient is a 24-year-old female presenting [...] through MRI and liver function test with oriental rug stretcher. A recent MRI indicated a new mass, prompting further evaluation before attempting . Shannon Mahajan MD [facility] [place], [address], [facility] [employer] IV 10/02/2024 10:35:45 11/06/2024 text/html ROS as noted in the HPI Mell 24 y/o here for ER f/u - c/o pelvic pain and irregular periods LMP 07/2024, seen at [facility] , MRI abdomin was done told she had lesion LMP normal 08/2024 bleeding off and on since no control, Last pap 2022 The patient is a 24-year-old female presenting with severe pelvic pain and irregular menstruation. Her menstrual cycle has been irregular, with her last full period from August 06 to August 12, followed by a light period from October 03 to , and spotting on November 01. The pelvic pain is described as severe, reaching a 10 out of 10 in intensity, prompting an emergency visit. An ultrasound during the emergency visit on October 17 revealed a 5 mm avascular irregular focus of decreased echogenicity within the endometrial complex, not considered the cause of her severe pain. She was treated with medication for inflammation, providing some relief, though discomfort persists. The patient has a history of back pain, with x-rays showing no abnormalities, and she has been prescribed muscle relaxants. No MRI of the back has been conducted. The patient is concerned about her weight, which may contribute to her irregular periods. She follows a Mediterranean diet and avoids soda and tea, yet struggles with weight loss. Mell desires . Shannon Mahajan MD [facility] [place], [address], [facility] 11/07/2024 07:57:57 OBGyn Episode Ob Episode Information Episode Created Date Number of Fetuses Patient Bloodtype Patient rh Status Prepregnancy Weight lbs Domestic Partner Domestic Partner Phone Father Name Grades 1 6 Tutor Status 06/24/19 22 1 CLOSED Fetus Data First Name Last Name Admitted to NICU Weight (g) Sex Living Outcome Pediatric Complications Fetus ID Race Codes Race Delivery Type 3316.89 15 F [id number] Zhao Calculation Initial Zhao Date Initial Exam [...]
--- OUTSIDE RECORDS SUMMARY | 2025-04-08 21:09 | XMS_ITS | Encounter Summary ---
Author Organization [facility] Address [address] [place] [address] Care Team Providers Care Clinical Documentation Developer Name Role Phone Radha Higgins Primary Care Provider Encounter Details Date Type Department Care Team (Late st Contact Info) Description 11/08/2022 Musistic Message Enc [facility] Orthopedic & Sports Medicine - [address] [address] [place], [facility] Provider apt 11/20/22 Social History Tobacco Use [...] Assessment Author Status No 04/17/2019 9:00 AM JIGMAKER Activ e * RETIRED Are you blind or do you have serious difficulty seeing, even when wearing glasses? Answer Date of Assessment Author Status No 04/17/2019 9:00 AM JIGMAKER Activ e * Do you have serious [...] Rule Out 04/05/2023 04/05/2023 04/05/2023 3:38 PM JIGMAKER COVID-19 Rule Out 12/25/2023 12/25/2023 12/25/2023 12:58 PM CDT Assessment Noted Time PHQ-9 Depression Total Score: 1 06/01/19 9:49 AM JIGMAKER documented as of this encounter Care Teams Clinical Documentation Developer Relationship Specialty Start Date End Date Radha Higgins APNP [address] [place] [id number] PCP - General NURSE PRACTITIONER 02/17/19 documented as of this encounter
--- OUTSIDE RECORDS SUMMARY | 2025-04-08 21:09 | XMS_ITS | Clinical Summary ---
Author Organization [facility] Address [address] [place] [address] Care Team Providers Care Fisher Oyster Name Role Phone Radha Higgins LEAD OPERATOR-ANIME DESIGNER Primary Care Provider Source Comments [facility],non-owned Affiliates and Associated Physician Practices is amultiple site organization consisting of ambulatory clinics and hospital sitesin [place], [place], [place] and [place]. This disclosure is being madepursuant to the Care Everywhere program and may not contain all information available regarding this patient. Last updated 17.[facility] Allergies No known active allergies Medications * [...] disorder, depressed, moderate 04/22/19 19 Hypothyroidism 10/17/2017 Immunizations Immunization Administration Dates Next Due DTAP, [...] on file Legal Sex Female 11:04 AM [facility] Gender Identity Not on file Sexual Orientation [...] Health Maintenance Due Date Last Done Comments PAP SMEAR 09/01/2024 09/01/2021 COVID-19 VACCINE ( season) 2024 12/07/2020, 11/16/2020 INFLUENZA VACCINE (#1) 2024 , 01/19/2022, 03/07/2021, [...] on patient's age to complete this topic Insurance [facility] [place] [address] Care Teams Fisher Oyster Relationship Specialty Start Date End Date Radha Higgisn, LEAD OPERATOR-ANIME DESIGNER [address] [place] [id number] PCP - General 05/19/21
--- OUTSIDE RECORDS SUMMARY | 2025-04-08 21:09 | XMS_ITS | Encounter Summary ---
Author Organization [facility] Address [address] [place] [address] Care Team Providers Care Crossbow Maker Name Role Phone Radha Higgins Primary Care Provider [phone] Encounter Details Date Type Department Care Team (Late st Contact Info) Description 06/28/2022 MyCXobnit Message Enc [facility] Medical Group Family & Internal Medicine - [address] [address] Alba Raymond NP Results Social [...] Assessment Author Status No 04/17/2019 9:00 AM HEDIS REVIEW NURSE Activ e * RETIRED Are you blind or do you have serious difficulty seeing, even when wearing glasses? Answer Date of Assessment Author Status No 04/17/2019 9:00 AM HEDIS REVIEW NURSE Activ e * Do you have serious [...] Rule Out 04/05/2023 04/05/2023 04/05/2023 3:38 PM HEDIS REVIEW NURSE COVID-19 Rule Out 12/25/2023 12/25/2023 12/25/2023 12:58 PM CDT Assessment Noted Time PHQ-9 Depression Total Score: 1 06/01/19 9:49 AM HEDIS REVIEW NURSE documented as of this encounter Care Teams Crossbow Maker Relationship Specialty Start Date End Date Radha Higgins APNP [address] [place] [id number] PCP - General NURSE PRACTITIONER 02/17/19 documented as of this encounter
[2025-04-08 21:13] VITALS: BP 141/78; PULSE 98; RESP 17; TEMP 36.4; O2SAT 100
[2025-04-08] MEDS: HYDROcodone/acetaminophen (*CRX) 5-325 MG TABLET 1 TAB PO (22:40)
--- NOTE | 2025-04-08 22:42 | ED.LOWEXIN ---
HPI - Extremity Injury (Lower) General Chief Complaint: Extremity Injury, Lower Stated Complaint: broken toe Time Seen by Provider: 04/08/25 22:25 Source: patient Mode of arrival: ambulatory Limitations: no limitations History of Present Illness HPI Narrative: This is a 25 year old female that presents to the ER for left little toe injury. Reports she stubbed it on the couch. Reports swelling and pain to the left little toe. Related Data Home Medications ?Medication ?Instructions ?Recorded ?Confirmed ?Last Taken ?Type levothyroxine 25 mcg tablet 25 mcg PO DAILY 05/06/22 12/26/23 12/26/23 History pantoprazole 40 mg tablet,delayed 40 mg PO DAILY 05/06/22 12/26/23 12/26/23 History release clonazepam 0.5 mg tablet 0.5 mg PO QHS 12/26/23 12/26/23 12/25/23 History ferrous sulfate 325 mg PO DAILY 12/26/23 12/26/23 Unknown History sertraline 50 mg tablet 50 mg PO QAM 12/26/23 12/26/23 12/25/23 History Allergies Allergy/AdvReac Type Severity Reaction Status Date / Time No Known Allergies Allergy Verified 04/08/25 21:07 Review of Systems Review of Systems: All systems reviewed & are unremarkable except as noted in HPI and below PMFSH Past Medical History Medical History (Updated 04/08/25 @ 22:44 by Shannon Santos PA-C) Healthy female adult Surgical History Surgical History (Updated 10/17/24 @ 09:23 by Zander Moya MD) No pertinent past surgical history Social History Social History Smoking status: Never smoker Alcohol intake: never Substance use: never Lack of Transportation: No Lack of Food: Never True Current Housing: I Have Housing Concerned About Future Housing: No Difficulty Paying Gas/Electric Bills: No Difficulty Paying for Meds: No Currently Unemployed: No Education: High School Diploma/GED Difficulty w/ Childcare or Family Care: No Spiritual care concerns: No Exam Narrative: GENERAL: Well-appearing, well-nourished, and in no acute distress. HEAD: Normocephalic, atraumatic. EYES: EOMI. EXTREMITIES: Mild edema to the left 5th toe with decreased ROM. Normal DP pulse SKIN: Warm, dry, no rash. NEURO: No focal deficits. Alert and oriented x3. PSYCH: Normal mood and affect Course Vital Signs Vital signs: Vital Signs Temperature 97.6 F 04/08/25 21:13 Pulse Rate 98 04/08/25 21:13 Respiratory Rate 17 04/08/25 21:13 Blood Pressure 141/78 H 04/08/25 21:13 Pulse Oximetry 100 04/08/25 21:13 Oxygen Delivery Room Air 04/08/25 21:13 Temperature 97.6 F 04/08/25 21:13 Pulse Rate 98 04/08/25 21:13 Respiratory Rate 17 04/08/25 21:13 Blood Pressure 141/78 H 04/08/25 21:13 Pulse Oximetry 100 04/08/25 21:13 Oxygen Delivery Room Air 04/08/25 21:13 Procedures Orthopedic Splinting/Casting Injury #1: Splinting/Casting Date: 04/08/25 Splinting/Casting Time: 22:58 Side: left Lower Extremity Injury Location: toe Lower Extremity Immobilizer: katerina tape Pre-Formed: post op shoe Pre-Procedure Neuro Vascular Exam: normal Post-Procedure Neuro Vascular Exam: normal Other Orthopedic Equipment: crutches MDM MDM Narrative Medical decision making narrative: Patient presents to the emergency department for left 5th toe injury. Fracture noted on x-ray. Patient katerina taped, placed in postop shoe, given crutches. Will be given follow-up with Podiatry Differential Diagnosis Differential Diagnosis: toe fracture, dislocation, contusion Imaging Data My impression: Left foot x-ray: Left fifth toe proximal phalanx fracture Critical Care Time Critical Care Time Critical Care Time: No Discharge Plan Discharge Clinical Impression: Fracture of toe Qualifiers: Encounter type: initial encounter Toe: lesser toe Fracture type: closed Phalanx: proximal Fracture alignment: displaced Laterality: left Qualified Code(s): S92.512A - Displaced fracture of proximal phalanx of left lesser toe(s), initial encounter for closed fracture Patient Disposition: Home Condition: Stable Instructions: Toe Fracture (ED) Additional Instructions: Return to the ER if you experience fever, redness and swelling of your extremity, numbness or any other symptoms that are concerning to you Wear katerina tape, post op shoe and use crutches. No weight on the affected foot Ice and elevate extremity. Pain medication as needed and directed. Follow up with Podiatry for further care. Patient Language: Urdu Prescriptions: New hydrocodone-acetaminophen 5-325 mg tablet 1 tablet PO Q6H PRN (Reason: pain) Qty: 20 0RF No Action levothyroxine 25 mcg tablet 25 mcg PO DAILY pantoprazole 40 mg tablet,delayed release (DR/EC) 40 mg PO DAILY clonazepam 0.5 mg tablet 0.5 mg PO QHS sertraline 50 mg tablet 50 mg PO QAM ferrous sulfate 325 mg PO DAILY levofloxacin 750 mg tablet 750 mg PO DAILY 5 Days Qty: 5 0RF metronidazole 500 mg tablet 500 mg PO Q8H 5 Days Qty: 15 0RF naproxen 375 mg tablet 375 mg PO BID Qty: 14 0RF Follow-up/Referrals: Annamaria Aponte DPM [Physician, Podiatry] Gisela,BALAJI Garcia [Primary Care Provider]
== END 2025-04-08 23:58 | disposition home or self-care (01) ==
PROVIDERS: Emergency Provider Physician Assistant; PCP Registered Nurse
DX: S92.512A Displaced fracture of proximal phalanx of left lesser toe(s), initial encounter for closed fracture (principal); W22.03XA Walked into furniture, initial encounter
CPT/HCPCS: 73630; 99284; A9270